=== PATIENT | male | born 1950 | race Caucasian/White ===

== ENCOUNTER 2017-03-16 21:03 | Emergency (ER) | payer MEDICARE, BC ==
--- NOTE | 2017-03-16 21:23 | ED Physician Documentation ---
History of Present Illness - Stated complaint Stated Complaint: ABD PX - Chief complaint Chief Complaint: General - History obtained from History obtained from: Patient - History of Present Illness Timing: How many weeks ago (1) Pain level now: 8 Improved by: no ameliorating factors Worsened by: palpation - Additonal information Additional information: sudden onset RUQ pain one week ago, distinct inciting even when he was coughing heavily. Since that time, the pain has gone through periods of worsening over hours or days, then improving in similar time frames. However, there was definitive worsening this evening, again associated with coughing. Review of Systems Constitutional: denies: Fever, Chills, Sweats Respiratory: reports: Cough. denies: Dyspnea GI: reports: Abdominal Pain, Abdominal Swelling (focal RUQ). denies: Nausea, Vomiting PD PAST MEDICAL HISTORY - Past Medical History Cardiovascular: Atrial fibrillation Respiratory: None Neuro: Headache/migraine Endocrine/Autoimmune: None GI: GERD, Other : None HEENT: None Psych: Post traumatic stress disorder Musculoskeletal: None Derm: Eczema - Past Surgical History Past Surgical History: Yes General: Cholecystectomy, Appendectomy Ortho: Spine surgery Cardiovascular: Other - Present Medications Home Medications: Ambulatory Orders Medication Instructions Recorded Confirmed Olanzapine 0 mg ORAL DAILY 04/24/16 04/24/16 Omeprazole [PriLOSEC] 20 mg ORAL BID 04/24/16 04/24/16 Ondansetron Odt [Zofran] 4 mg TL Q6H PRN #10 tablet 04/24/16 Oxycodone HCl/Acetaminophen 1 - 2 each PO Q6H PRN #20 tablet 04/24/16 [Percocet 5-325 mg Tablet] QUEtiapine [SEROquel] 0 mg ORAL DAILY 04/24/16 04/24/16 Venlafaxine [Effexor] 150 mg ORAL BID 04/24/16 04/24/16 oxyCODONE/ACET 5/325 [Percocet 5 1 - 2 each PO Q6H PRN #20 tablet 03/17/17 mg/325 mg] - Allergies Allergies/Adverse Reactions: Allergies Allergy/AdvReac Type Severity Reaction Status Date / Time No Known Drug Allergies Allergy Verified 03/16/17 21:14 - Social History Does the pt smoke?: No Smoking Status: Never smoker Does the pt drink ETOH?: Yes Does the pt have substance abuse?: No - Immunizations Immunizations: TDAP >10years/unknown PD ED PE NORMAL - Vitals Vital signs reviewed: Yes - General General: Alert and oriented X 3, Well developed/nourished, Other (initially NAD , but during H+P, he transitions into obvious moderate painful distress) - Cardiac Cardiac: RRR, No murmur - Respiratory Respiratory: No respiratory distress, Clear bilaterally - Abdomen Abdomen: Normal bowel sounds, Soft, Non distended, Other (RUQ tenderness associated with fullness/firmness of the RUQ abdominal wall) - Derm Derm: Normal color, Warm and dry, No rash Results - Vitals Vitals: Vital Signs - 24 hr 03/16/17 03/16/17 03/17/17 21:09 23:25 00:45 Temperature 36.4 C L 36.2 C L Heart Rate 99 80 85 Respiratory 17 18 17 Rate Blood Pressure 153/98 H 158/85 H O2 Saturation 97 95 93 03/17/17 01:05 Temperature 36.3 C L Heart Rate 87 Respiratory 18 Rate Blood Pressure 150/48 H O2 Saturation 95 Oxygen O2 Source Room air - Labs Labs: Laboratory Tests 03/16/17 03/16/17 21:49 21:49 WBC 14.8 H RBC 5.02 Hgb 16.0 Hct 45.9 MCV 91.4 MCH 31.8 H MCHC 34.8 RDW 13.7 Plt Count 243 MPV 7.4 Neut # 9.1 H Lymph # 4.5 H Sutter # 1.1 H Eos # 0.1 Baso # 0.1 Absolute Nucleated RBC 0.00 Nucleated RBCs 0.0 Sodium 139 Potassium 4.2 Chloride 105 Carbon Dioxide 26 Anion Gap 8.0 BUN 18 Creatinine 1.3 H Estimated GFR (MDRD) 56 L Glucose 127 H Calcium 9.3 Total Bilirubin 0.5 AST 28 ALT 48 Alkaline Phosphatase 91 Total Protein 7.2 Albumin 4.1 Globulin 3.1 Albumin/Globulin Ratio 1.3 Lipase 21 L - Rads (name of study) chest xray Radiology: Prelim report reviewed, See rad report CT A/P Radiology: Prelim report reviewed, See rad report PD MEDICAL DECISION MAKING - ED course Complexity details: reviewed results, re-evaluated patient, considered differential, d/w patient, d/w family ED course: CT reveals rectus sheath hematoma, grade I (small, does not cross midline nor dissect facial planes). Pain was controlled with titrated doses of IV dilaudid, results reviewed, instructed to avoid aspirin and ibuprofen (NSAIDs), f/u with PMD, return if worse. Departure - Departure Disposition: 01 Home, Self Care Clinical Impression: Rectus sheath hematoma Condition: Good Instructions: ED Hematoma Follow-Up: Henok Negrete MD [Primary Care Provider] - Prescriptions: oxyCODONE/ACET 5/325 [Percocet 5 mg/325 mg] 1 - 2 each PO Q6H PRN #20 tablet PRN Reason: Pain Discharge Date/Time: 03/17/17 01:10
[2017-03-16] MEDS ORDERED: HYDROmorphone 1 MG/ML SYRINGE IVP STA ×2 (21:46→22:28)
[2017-03-16] MEDS ORDERED: HYDROmorphone 1 MG/ML SYRINGE ONE ×2 (21:50→22:27)
[2017-03-16 21:55] LABS: BASOPHILS # (AUTO) 0.1 10^3/uL (0.0-0.1); BASOPHILS % (AUTO) 0.7 %; EOSINOPHILS # (AUTO) 0.1 10^3/uL (0.0-0.7); EOSINOPHILS % (AUTO) 0.6 %; HCT - HEMATOCRIT 45.9 % (42.0-52.0); LYMPHOCYTES # (AUTO) 4.5 10^3/uL (1.5-3.5); LYMPHOCYTES % (AUTO) 30.5 %; MEAN CORPUSCULAR HEMOGLOBIN 31.8 pg (27.0-31.0); MEAN CORPUSCULAR HGB CONC 34.8 g/dL (32.0-36.0); MEAN CORPUSCULAR VOLUME 91.4 fL (80.0-94.0); MEAN PLATELET VOLUME 7.4 fL (7.4-11.4); MONOCYTES # (AUTO) 1.1 10^3/uL (0.0-1.0); MONOCYTES % (AUTO) 7.2 %; NEUTROPHILS # (AUTO) 9.1 10^3/uL (1.5-6.6); RED BLOOD COUNT 5.02 10^6/uL (4.70-6.10); RED CELL DISTRIBUTION WIDTH 13.7 % (12.0-15.0); UNCORRECTED WHITE BLOOD COUNT 14.8 x10^3/uL; WHITE BLOOD COUNT 14.8 x10^3/uL (4.8-10.8)
[2017-03-16 22:09] LABS: ALBUMIN/GLOBULIN RATIO 1.3 (1.0-2.2); BILIRUBIN,TOTAL 0.5 mg/dL (0.2-1.0); CALCIUM 9.3 mg/dL (8.5-10.3); CREATININE 1.3 mg/dL (0.6-1.2); POTASSIUM 4.2 mmol/L (3.5-5.0); TOTAL PROTEIN 7.2 g/dL (6.7-8.2)
[2017-03-16] MEDS ORDERED: IOPAMIDOL-300 100 ML VIAL IVP ONE (22:57)
--- NOTE | 2017-03-16 23:28 | XRAY Preliminary Report ---
Exam: XR Chest 2 View PA/LAT IMPRESSION: Normal 2-view chest radiography. [facility] SITE ID: [id number]
--- NOTE | 2017-03-16 23:30 | CT Preliminary Report ---
Exam: CT Abdomen/Pelvis W/ IMPRESSION: 1. No acute inflammatory or obstructive process seen in the abdomen or pelvis. 2. Colonic diverticula without evidence of diverticulitis. 3. Small umbilical hernia containing fat. 4. Fatty liver. [facility] SITE ID: [id number]
--- NOTE | 2017-03-16 23:30 | XRAY Report ---
EXAM: CHEST RADIOGRAPHY EXAM DATE: 03/16/2017 10:53 PM. CLINICAL HISTORY: Cough, right chest pain. COMPARISON: None. TECHNIQUE: 2 views. FINDINGS: Lungs/Pleura: No focal opacities evident. No pleural effusion. No pneumothorax. Normal volumes. Mediastinum: Heart and mediastinal contours are unremarkable. Other: None. IMPRESSION: Normal 2-view chest radiography. [facility] Referring Provider Line: [phone] SITE ID: [id number]
--- NOTE | 2017-03-16 23:32 | CT Report ---
EXAM: CT ABDOMEN AND PELVIS EXAM DATE: 03/16/2017 10:55 PM. CLINICAL HISTORY: Generalized abdominal pain. COMPARISONS: 04/24/2016. TECHNIQUE: Routine helical CT imaging was performed through the abdomen and pelvis. IV contrast: Michaela onic. Enteric contrast: Yes. Reconstructions: Coronal and sagittal. In accordance with CT protocol optimization, one or more of the following dose reduction techniques w ere utilized for this exam: automated exposure control, adjustment of mA and/or KV based on patient s ize, or use of iterative reconstructive technique. FINDINGS: Lung Bases: Unremarkable. Liver: Fatty infiltration. Gallbladder/Bile Ducts: Status post cholecystectomy. Spleen: Normal. Pancreas: Normal. Adrenal Glands: Normal. Kidneys: Hyperdense left renal cyst is unchanged. No other masses or hydronephrosis. Peritoneal Cavity/Bowel: Moderate stool in the colon. Colonic diverticula without evidence of diverti culitis. No bowel obstruction seen. No free air or free fluid. Normal-sized retroperitoneal lymph nod es. Appendix is not seen. No evidence of appendicitis. Pelvic Organs: Normal. The bladder and visualized pelvic organs are within normal limits. Vasculature: Mild/moderate atherosclerosis. No aortic aneurysm. Bones: Degenerative changes and postoperative changes in the lumbar spine. Other: Small umbilical hernia containing fat. IMPRESSION: 1. No acute inflammatory or obstructive process seen in the abdomen or pelvis. 2. Colonic diverticula without evidence of diverticulitis. 3. Small umbilical hernia containing fat. 4. Fatty liver. [facility] Referring Provider Line: [phone] SITE ID: [id number]
[2017-03-17] MEDS ORDERED: HYDROmorphone 1 MG/ML SYRINGE IVP STA (00:32)
[2017-03-17] MEDS ORDERED: oxyCODONE/ACET 5/325 Prepack 4 PO STA (00:32)
[2017-03-17] MEDS ORDERED: HYDROmorphone 1 MG/ML SYRINGE ONE (00:33)
[2017-03-17] MEDS ORDERED: oxyCODONE/ACET 5/325 Prepack 4 PO ONE (00:44)
[2017-03-17 01:12] VITALS: BP 150/48
== END 2017-03-17 01:10 | disposition home or self-care (01) ==
LOC: ED 21:03
DX: S30.1XXA Contusion of abdominal wall, initial encounter (principal); X58.XXXA Exposure to other specified factors, initial encounter; I48.91 Unspecified atrial fibrillation; K21.9 Gastro-esophageal reflux disease without esophagitis
CPT/HCPCS: 36415; 71020; 74177; 80053; 83690; 85025; 96374; 96376; 99283; 99284; J1170; Q9967

== ENCOUNTER 2017-11-19 08:39 | Inpatient (IN) | payer MEDICARE, BC ==
--- NOTE | 2017-11-19 09:03 | ED Physician Documentation ---
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 no fever cough NVD urinary sx went to bed at 10 PM awoke 2 AM to go to the bathroom and noted his right leg was weak - got to bathoom and back to bed s fall - back to sleep awoke again 3 AM and now he feels weak all over arms and legs R > L and having slightly slurred speech also a posterior ELLIS present to ED at approx 840AM which is> 10 hr after last known normal and > 6 hr after he first awoke and noted sx only recent med change is changing from seroquel to lamotrigine Review of Systems Constitutional: denies: Fever, Chills Throat: denies: Sore throat Cardiac: denies: Chest pain / pressure, Palpitations Respiratory: denies: Dyspnea, Cough GI: denies: Abdominal Pain, Nausea, Vomiting : denies: Dysuria Skin: denies: Rash Musculoskeletal: denies: Neck pain Neurologic: reports: Focal weakness, Difficulty speaking, Headache. denies: Numbness, Head injury Endocrine: denies: Easy bruising / bleeding Immunocompromised: denies: Immunocompromised PD PAST MEDICAL HISTORY - Past Medical History Past Medical History: Yes Cardiovascular: Atrial fibrillation Respiratory: None Neuro: Headache/migraine Endocrine/Autoimmune: None GI: GERD, Other : None HEENT: None Psych: Post traumatic stress disorder Musculoskeletal: None Derm: Eczema - Past Surgical History Past Surgical History: Yes General: Cholecystectomy, Appendectomy Ortho: Spine surgery Cardiovascular: Other - Present Medications Home Medications: Ambulatory Orders Medication Instructions Recorded Confirmed Omeprazole [PriLOSEC] 20 mg ORAL QDAC 04/24/16 11/19/17 QUEtiapine [SEROquel] 100 mg PO DAILY PRN 04/24/16 11/19/17 Aripiprazole [Abilify] 20 mg PO DAILY 11/19/17 11/19/17 Aspirin 81 mg PO DAILY 11/19/17 11/19/17 Venlafaxine HCl [Venlafaxine HCl 300 mg PO DAILY 11/19/17 11/19/17 ER] lamoTRIgine [LaMICtal] 50 mg PO DAILY 11/19/17 11/19/17 - Allergies Allergies/Adverse Reactions: Allergies Allergy/AdvReac Type Severity Reaction Status Date / Time No Known Drug Allergies Allergy Verified 03/16/17 21:14 - Social History Does the pt smoke?: No Smoking Status: Never smoker Does the pt drink ETOH?: Yes Does the pt have substance abuse?: No - Immunizations Immunizations are current?: Yes Immunizations: TDAP >10years/unknown - POLST Patient has POLST: No PD ED PE NORMAL - Vitals Vital signs reviewed: Yes (BP high - not a TPA candidate - will recheck) - General General: Alert and oriented X 3 - HEENT HEENT: Atraumatic, PERRL, EOMI, Other (slight R facial droop) - Neck Neck: Supple, no meningeal sign - Cardiac Cardiac: RRR - Respiratory Respiratory: No respiratory distress, Clear bilaterally - Derm Derm: Normal color - Neuro Neuro: Alert and oriented X 3, No sensory deficit. No: emergency department nurse 2-12 intact, No motor deficit, Normal speech Eye Opening: Spontaneous Motor: Obeys Commands Verbal: Oriented GCS Score: 15 Results - Vitals Vitals: Vital Signs - 24 hr 11/19/17 11/19/17 11/19/17 08:45 09:30 10:00 Temperature 36.4 C L Heart Rate 65 62 60 Respiratory 20 16 16 Rate Blood Pressure 175/104 H 143/91 H 157/85 H O2 Saturation 93 96 92 11/19/17 11:10 Temperature Heart Rate 60 Respiratory 15 Rate Blood Pressure 151/95 H O2 Saturation 95 Oxygen O2 Source Room air - EKG (time done) 1007 Rate: Rate (enter#) (60) Rhythm: NSR Chambers: Normal Intervals: Normal MI Ischemia: Non specific changes - Labs Labs: Laboratory Tests 11/19/17 11/19/17 11/19/17 08:50 08:50 08:50 WBC 10.8 RBC 5.37 Hgb 16.7 Hct 48.8 MCV 90.7 MCH 31.1 H MCHC 34.3 RDW 14.0 Plt Count 244 MPV 7.6 Neut # 6.9 H Lymph # 3.1 Fulton # 0.6 Eos # 0.1 Baso # 0.1 Absolute Nucleated RBC 0.01 Nucleated RBC % 0.1 PT 11.4 INR 1.0 Sodium Potassium Chloride Carbon Dioxide Anion Gap BUN Creatinine Estimated GFR (MDRD) Glucose POC Whole Bld Glucose 166 H Calcium 11/19/17 08:50 WBC RBC Hgb Hct MCV MCH MCHC RDW Plt Count MPV Neut # Lymph # Fulton # Eos # Baso # Absolute Nucleated RBC Nucleated RBC % PT INR Sodium 136 Potassium 4.4 Chloride 100 L Carbon Dioxide 26 Anion Gap 10.0 BUN 19 Creatinine 1.1 Estimated GFR (MDRD) 67 L Glucose 172 H POC Whole Bld Glucose Calcium 9.4 - Rads (name of study) CTH Radiology: See rad report (no acute infarct or bleed) CTA head Radiology: See rad report (no large intracranial vessel occlusion, mild l vertebral and basilar stenosis appears chronic and is not flow limiting) CTA neck Radiology: See rad report (no acute carotid or vetebral stenosis) PD MEDICAL DECISION MAKING - ED course ED course: outside TPA window CTH neg CTAs neg d/w neuro at [facility] and they have no intervention that will help this case rec admit for MRI echo ect pt already takes asa daily spoke to hospitalist Dr Doran at 1110 Departure - Departure Disposition: ED Place in Observation Clinical Impression: Cerebrovascular accident (CVA) Qualifiers: CVA mechanism: unspecified Qualified Code(s): I63.9 - Cerebral infarction, unspecified Condition: Fair Discharge Date/Time: 11/19/17 11:52 NIHSS - Time Time: 08:50 - Level of Consciousness Level of consciousness: (0) Alert, Keenly responsive LOC Questions: (0) Answers both Q's correct LOC Commands: (0) Performs both correctly - Gaze Best Gaze: (0) Normal - Visual Visual: (0) No loss - Facial Palsy Facial Palsy: (2) Partial paralysis - Motor Arms (both separate) Motor Arm (right): (0) No drift (but slightly weaker than left) Motor Arm (left): (0) No drift - Motor Legs (both separate) Motor Leg (right): (0) No drift (but weaker than left, slower to lift, more effort to hold it up) Motor Leg (left): (0) No drift - Limb Ataxia Limb Ataxia: (0) Absent - Sensory Sensory: (0) Normal - Best Language Best Language: (0) No aphasia - Dysarthria Dysarthria: (1) [id number] dysarthria - Extinction and Inattention (formally neg Extinction and inattention: (0) No abnormality - Total Score/Results Total Score/Result: 3
[2017-11-19 09:21] LABS: BASOPHILS # (AUTO) 0.1 10^3/uL (0.0-0.1); BASOPHILS % (AUTO) 0.7 %; EOSINOPHILS # (AUTO) 0.1 10^3/uL (0.0-0.7); EOSINOPHILS % (AUTO) 0.5 %; HGB - HEMOGLOBIN 16.7 g/dL (14.0-18.0); LYMPHOCYTES # (AUTO) 3.1 10^3/uL (1.5-3.5); MEAN CORPUSCULAR HEMOGLOBIN 31.1 pg (27.0-31.0); MEAN CORPUSCULAR HGB CONC 34.3 g/dL (32.0-36.0); MEAN CORPUSCULAR VOLUME 90.7 fL (80.0-94.0); MEAN PLATELET VOLUME 7.6 fL (7.4-11.4); MONOCYTES # (AUTO) 0.6 10^3/uL (0.0-1.0); MONOCYTES % (AUTO) 5.9 %; NEUTROPHILS # (AUTO) 6.9 10^3/uL (1.5-6.6); NEUTROPHILS % (AUTO) 63.9 %; PLT - PLATELET COUNT 244 10^3/uL (130-450); RED BLOOD COUNT 5.37 10^6/uL (4.70-6.10); WHITE BLOOD COUNT 10.8 x10^3/uL (4.8-10.8)
[2017-11-19 09:22] LABS: PT - PROTHROMBIN TIME 11.4 secs (9.9-12.6)
[2017-11-19 09:23] LABS: CALCIUM 9.4 mg/dL (8.5-10.3); CREATININE 1.1 mg/dL (0.6-1.2)
[2017-11-19] MEDS ORDERED: IOPAMIDOL-300 100 ML VIAL ONE (09:26)
--- NOTE | 2017-11-19 09:28 | CT Preliminary Report ---
Exam: CT HEAD W/O STROKE PROTOCOL IMPRESSION: No acute intracranial abnormality, specifically no CT evidence of acute infarct and no in tra-cranial hemorrhage. [facility] The above findings were discussed with Dr. Rosita June by Dr. Baljeet Carrillo at 09:27 hrs on 11/19/17. SITE ID: [id number]
--- NOTE | 2017-11-19 09:44 | CT Report ---
EXAM: CT HEAD WITHOUT CONTRAST EXAM DATE: 11/19/2017 09:09 a.m. CLINICAL HISTORY: Right-sided weakness, last normal 10:00 p.m. COMPARISON: None. TECHNIQUE: Multiaxial CT images were obtained from the foramen magnum to the vertex. Reformats: Coron al. IV contrast: None. In accordance with CT protocol optimization, one or more of the following dose reduction techniques w ere utilized for this exam: automated exposure control, adjustment of mA and/or KV based on patient s ize, or use of iterative reconstructive technique. FINDINGS: Parenchyma: No intraparenchymal hemorrhage. No evidence of mass, midline shift, or CT findings of inf arction. Last-white differentiation is distinct. Extraaxial Spaces: Normal for age. No subdural or epidural collections identified. Ventricles: Normal in size and position. Sinuses and Orbits: There is partial opacification of right mastoid air cells. Otherwise, the imaged paranasal sinuses, orbits, and mastoids show no significant abnormality. Bones: No evidence of fracture or calvarial defect. Other: None. IMPRESSION: No acute intracranial abnormality, specifically no CT evidence of acute infarct and no in tracranial hemorrhage. [facility] The above findings were discussed with Dr. Roista June by Dr. Baljeet Carrillo at 09:27 hrs on 11/19/2017. Referring Provider Line: [phone] SITE ID: [id number]
--- NOTE | 2017-11-19 10:05 | CT Report ---
EXAM: CT ANGIOGRAM NECK EXAM DATE: 11/19/2017 09:49 AM. CLINICAL HISTORY: Right sided weakness. COMPARISON: None. TECHNIQUE: Routine axial helical imaging was performed from the skull base through the aortic arch. R econstructions: Routine multiplanar 3D MIP reconstructions. IV Contrast: 80 mL Isovue 300. Evaluation of arterial stenosis is based on a NASCET method of measurement. In accordance with CT protocol optimization, one or more of the following dose reduction techniques w ere utilized for this exam: automated exposure control, adjustment of mA and/or KV based on patient s ize, or use of iterative reconstructive technique. FINDINGS: Prominent findings of multilevel degenerative cervical spinal spondylosis. Previous cervical spine fu mary jane surgery. Mild atherosclerotic calcifications without associated flow-limiting stenosis at the great vessel ronnie gins. Minimal to mild atherosclerotic disease at the right cervical carotid artery without evidence for acu te abnormality or significant stenosis. Moderate atherosclerotic disease with calcified plaque in the region of the left cervical carotid bif urcation. No evidence however for acute abnormality or hemodynamically significant left cervical desai tid artery stenosis. As far as can be determined, the cervical vertebral arteries are patent without clearly defined flow -limiting stenosis but evaluation is limited in the mid and lower neck. In particular, the left verte bral artery origin is indistinct. IMPRESSION: There is no evidence for acute abnormality or significant stenosis of the cervical caroti d arteries. Vertebral arteries appear grossly patent but evaluation in the mid to lower neck is limited. [facility] Referring Provider Line: [phone] SITE ID: [id number]
--- NOTE | 2017-11-19 10:14 | CT Report ---
EXAM: CT ANGIOGRAM HEAD. CT SCAN OF THE HEAD WITH CONTRAST. EXAM DATE: 11/19/2017 09:48 AM CLINICAL HISTORY: Right sided weakness. COMPARISON: No prior head CT. TECHNIQUE: - CT Scan Head: Using a multidetector scanner, axial images were acquired from the foramen magnum to the skull vertex following contrast administration. - CT Angiogram: Using a multidetector scanner, high-resolution axial images were acquired from the sk ull base through vertex following rapid infusion of intravenous contrast. Reformats: Multiplanar MIP reformats were reconstructed. Nascet criteria used for stenosis measurement. IV Contrast: 80 mL Isovue 300. In accordance with CT protocol optimization, one or more of the following dose reduction techniques w ere utilized for this exam: automated exposure control, adjustment of mA and/or KV based on patient s ize, or use of iterative reconstructive technique. FINDINGS: Brain CT with contrast: Multi focal right mastoid air cell opacification especially inferiorly. No evidence for intracranial enhancing or space occupying mass. Head CT angiogram: Irregular atherosclerotic plaque is associated with minimal to mild focal luminal stenosis of the pro ximal left intradural vertebral artery. Unremarkable congenitally small right intradural vertebral ar yfn. Mild basilar artery stenosis, this does not appear flow-limiting. Prominent atherosclerotic calcifications of the cavernous and paraclinoid segments of both internal c arotid arteries but the distal internal carotid arteries are grossly patent. The degree of paraclinoi d segment ICA luminal stenosis is difficult to estimate accurately but is at least mild if not modera te right greater than left. No proximal flow-limiting stenosis, occlusion or filling defect of the anterior, middle and posterior cerebral arteries. No evidence for alatna of Hoff aneurysm. IMPRESSION: CT Head: No abnormal enhancing mass. Right mastoid opacities. CTA Head: No intracranial large vessel occlusion. Prominent cavernous and paraclinoid segment ICA atherosclerotic calcifications. Mild left vertebral and basilar artery atherosclerotic stenosis, this is more likely chronic than acu te and does not appear flow-limiting. Note that this study does not preclude the possibility of acute or small ischemic infarct. [facility] Referring Provider Line: [phone] SITE ID: [id number]
[2017-11-19] MEDS ORDERED: ACETAMINOPHEN 325 MG TABLET PO STA (11:14)
[2017-11-19] MEDS ORDERED: TEMAZEPAM 15 MG CAPSULE PO PRN (11:16)
--- NOTE | 2017-11-19 11:48 | HISTORY & PHYSICAL EXAMINATION ---
Chief Complaint - Chief Complaint Chief Complaint: Right-sided weakness History of Present Illness - Admitted From Admitted From:: Home/ER - History Obtained From Records Reviewed: Yes History obtained from: Patient, , Dr Jeff Exam Limitations: none - History of Present Illness HPI Comment/Other: Mr. Tim Yo is a very pleasant 67-year-old gentleman who began having right-sided weakness upon awakening this morning at about 2 AM. He first noticed the weakness in his right leg however this quickly evolved to his entire right side and he also noticed slurred speech. He came into the [facility] emergency department where he was evaluated and found to have right- sided weakness consistent with a stroke. A CAT scan was performed was negative as well as CT angiogram of the patient's brain. His symptoms have been slowly resolving and he has full movement but stiffness at this time.He will be admitted to the observation floor, an echocardiogram will be performed as well as an MRI of his brain and will monitor him on telemetry. History - Past Medical History Cardiovascular: reports: Atrial fibrillation Respiratory: reports: None Neuro: reports: Headache/migraine Endocrine/Autoimmune: reports: None GI: reports: GERD, Other : reports: None HEENT: reports: None Psych: reports: Depression, Anxiety, Bipolar disorder, Post traumatic stress disorder Musculoskeletal: reports: None Derm: reports: Eczema MRSA Hx?: No - Past Surgical History General: reports: Cholecystectomy, Appendectomy Ortho: reports: Spine surgery Cardiovascular: reports: Other - Family & Social History Family History: Mother: Alive and Well, CVA/TIA, Hyperlipidemia, Father: , Cancer, COPD/Emphysema, Hypertension Living arrangement: At home Living Situation: With spouse/s.o. - Substance History Use: Uses substance without health or social issues: NONE Abuse: Recurrent use of substance despite neg consequences: NONE Dependence: Experiences withdrawal or developed tolerances: NONE - POLST Patient has POLST: No Meds/Allgy - Home Medications Home Medications: Ambulatory Orders Medication Instructions Recorded Confirmed Omeprazole [PriLOSEC] 20 mg ORAL BID 04/24/16 04/24/16 QUEtiapine [SEROquel] 50 mg ORAL BID 04/24/16 04/24/16 Aripiprazole [Abilify] 20 mg PO DAILY 11/19/17 Aspirin 81 mg PO DAILY 11/19/17 Venlafaxine HCl [Venlafaxine HCl 150 mg PO BID 11/19/17 ER] lamoTRIgine [LaMICtal] 50 mg PO DAILY 11/19/17 - Allergies Allergies/Adverse Reactions: Allergies Allergy/AdvReac Type Severity Reaction Status Date / Time No Known Drug Allergies Allergy Verified 03/16/17 21:14 Review of Systems - Constitutional Constitutional: reports: Weakness (Right-sided weakness with slurring of speech) . denies: Fatigue, Fever, Chills - Eyes Eyes: denies: Pain, Irritation, Amaurosis, Dipolpia - Ears, Nose & Throat Ears, Nose & Throat: denies: Ear pain, Hearing loss, Hearing aids, Tinnitus, Vertigo, Nasal pain, Nasal discharge, Nosebleeds - Cardiovascular Cariovascular: denies: Palpitations, Chest pain, Edema, Syncope - Respiratory Respiratory: denies: Cough, Sputum production, Wheezing, Orthopnea, SOB at rest , SOB with exertion - Gastrointestinal Gastrointestinal: denies: Abdominal pain, Abdominal distention, Constipation, Diarrhea, Change in bowel habits, Rectal bleeding - Genitourinary Genitourinary: denies: Dysuria, Frequency, Urgency, Hematuria - Musculoskeletal Musculoskeletal: denies: Muscle pain, Back pain, Muscle aches, Stiffness - Integumentary Integumentary: denies: Rash, Pruritis, Lesions - Neurological Neurological: reports: Focal weakness. denies: General weakness, Headache, Dizziness - Psychiatric Psychiatric: denies: Depression, Anxiety, Suicidal, Hallucinations - Endocrine Endocrine: denies: Polyuria, Polydypsia, Polyphagia - Hematologic/Lymphatic Hematologic/Lymphatic: denies: Anemia, Bruising, Lymphadenopathy - All Other Systems All Other Systems: reports: Reviewed and negative Exam - Vital Signs Reviewed Vital Signs: Yes Vital Signs: Vital Signs x48h Temp Pulse Resp BP Pulse Ox 11/19/17 10:00 60 16 157/85 H 92 11/19/17 09:30 62 16 143/91 H 96 11/19/17 08:45 36.4 C L 65 20 175/104 H 93 - Physical Exam General Appearance: positive: Alert, Mild distress Eyes Bilateral: positive: Normal inspection, PERRL, EOMI, No lid inflammation, Conjunctivae nml, No scleral icterus ENT: positive: ENT inspection nml, Pharynx nml, No signs of dehydration Neck: positive: Nml inspection, Thyroid nml, No JVD, Trachea midline. negative : Thyromegaly Respiratory: positive: Chest non-tender, No respiratory distress, Breath sounds nml. negative: Wheezes, Rales, Rhonchi Cardiovascular: positive: Regular rate & rhythm, No murmur, No gallop Peripheral Pulses: positive: 1+ Abdomen: positive: Non-tender, No organomegaly, Nml bowel sounds, No distention. negative: Guarding, Rebound Back: positive: Nml inspection. negative: CVA tenderness (R), CVA tenderness (L ) Skin: positive: Color nml, No rash, Warm, Dry. negative: Cyanosis Extremities: positive: Non-tender, Full ROM, Nml appearance, No pedal edema Neurologic/Psychiatric: positive: Oriented x3, CN's nml (2-12), Motor nml, Mood/ affect nml, Facial droop (Very slight), Slurred/abnml speech. negative: Sensation nml Conclusion/Plan - Problem List (1) Weakness of right side of body Conclusion/Plan: Patient's right-sided weakness is complete from his leg to his face and he does have some slight facial droop with slurring. All the symptoms are resolving and the patient's muscle strength appears to be close to normal at this point although he still says he does not feel "quite right". Will obtain an echocardiogram and an MRI of his brain and monitor his condition closely while he is in an observation bed on telemetry. (2) Bipolar 1 disorder Conclusion/Plan: Well-managed, continue Abilify, Seroquel, and Lamictal. (3) Post traumatic stress disorder (PTSD) Conclusion/Plan: Well-managed, continue psychiatric medications. (4) Anxiety and depression Conclusion/Plan: Well-managed, continue Effexor. (5) GERD (gastroesophageal reflux disease) Conclusion/Plan: Well-managed, continue Prilosec. - Lab Results Lab results reviewed: Yes Fish Bones: 11/19/17 08:50 11/19/17 08:50 - Diagnostic Imaging Results Diagnostic Imaging Results: positive: Final report reviewed Diagnostic Imaging Results Comments: EXAM: CT HEAD WITHOUT CONTRAST EXAM DATE: 11/19/2017 09:09 a.m. CLINICAL HISTORY: Right-sided weakness, last normal 10:00 p.m. COMPARISON: None. TECHNIQUE: Multiaxial CT images were obtained from the foramen magnum to the vertex. Reformats: Coronal. IV contrast: None. In accordance with CT protocol optimization, one or more of the following dose reduction techniques were utilized for this exam: automated exposure control, adjustment of mA and/or KV based on patient size, or use of iterative reconstructive technique. FINDINGS: Parenchyma: No intraparenchymal hemorrhage. No evidence of mass, midline shift, or CT findings of infarction. Last-white differentiation is distinct. Extraaxial Spaces: Normal for age. No subdural or epidural collections identified. Ventricles: Normal in size and position. Sinuses and Orbits: There is partial opacification of right mastoid air cells. Otherwise, the imaged paranasal sinuses, orbits, and mastoids show no significant abnormality. Bones: No evidence of fracture or calvarial defect. Other: None. IMPRESSION: No acute intracranial abnormality, specifically no CT evidence of acute infarct and no intracranial hemorrhage. EXAM: CT ANGIOGRAM NECK EXAM DATE: 11/19/2017 09:49 AM. CLINICAL HISTORY: Right sided weakness. COMPARISON: None. TECHNIQUE: Routine axial helical imaging was performed from the skull base through the aortic arch. Reconstructions: Routine multiplanar 3D MIP reconstructions. IV Contrast: 80 mL Isovue 300. Evaluation of arterial stenosis is based on a NASCET method of measurement. In accordance with CT protocol optimization, one or more of the following dose reduction techniques were utilized for this exam: automated exposure control, adjustment of mA and/or KV based on patient size, or use of iterative reconstructive technique. FINDINGS: Prominent findings of multilevel degenerative cervical spinal spondylosis. Previous cervical spine fusion surgery. Mild atherosclerotic calcifications without associated flow-limiting stenosis at the great vessel origins. Minimal to mild atherosclerotic disease at the right cervical carotid artery without evidence for acute abnormality or significant stenosis. Moderate atherosclerotic disease with calcified plaque in the region of the left cervical carotid bifurcation. No evidence however for acute abnormality or hemodynamically significant left cervical carotid artery stenosis. As far as can be determined, the cervical vertebral arteries are patent without clearly defined flow-limiting stenosis but evaluation is limited in the mid and lower neck. In particular, the left vertebral artery origin is indistinct. IMPRESSION: There is no evidence for acute abnormality or significant stenosis of the cervical carotid arteries. Vertebral arteries appear grossly patent but evaluation in the mid to lower neck is limited. EXAM: CT ANGIOGRAM HEAD. CT SCAN OF THE HEAD WITH CONTRAST. EXAM DATE: 11/19/2017 09:48 AM CLINICAL HISTORY: Right sided weakness. COMPARISON: No prior head CT. TECHNIQUE: - CT Scan Head: Using a multidetector scanner, axial images were acquired from the foramen magnum to the skull vertex following contrast administration. - CT Angiogram: Using a multidetector scanner, high-resolution axial images were acquired from the skull base through vertex following rapid infusion of intravenous contrast. Reformats: Multiplanar MIP reformats were reconstructed. Nascet criteria used for stenosis measurement. IV Contrast: 80 mL Isovue 300. In accordance with CT protocol optimization, one or more of the following dose reduction techniques were utilized for this exam: automated exposure control, adjustment of mA and/or KV based on patient size, or use of iterative reconstructive technique. FINDINGS: Brain CT with contrast: Multi focal right mastoid air cell opacification especially inferiorly. No evidence for intracranial enhancing or space occupying mass. Head CT angiogram: Irregular atherosclerotic plaque is associated with minimal to mild focal luminal stenosis of the proximal left intradural vertebral artery. Unremarkable congenitally small right intradural vertebral artery. Mild basilar artery stenosis, this does not appear flow- limiting. Prominent atherosclerotic calcifications of the cavernous and paraclinoid segments of both internal carotid arteries but the distal internal carotid arteries are grossly patent. The degree of paraclinoid segment ICA luminal stenosis is difficult to estimate accurately but is at least mild if not moderate right greater than left. No proximal flow-limiting stenosis, occlusion or filling defect of the anterior , middle and posterior cerebral arteries. No evidence for inupiat of Hoff aneurysm. IMPRESSION: CT Head: No abnormal enhancing mass. Right mastoid opacities. CTA Head: No intracranial large vessel occlusion. Prominent cavernous and paraclinoid segment ICA atherosclerotic calcifications. Mild left vertebral and basilar artery atherosclerotic stenosis, this is more likely chronic than acute and does not appear flow-limiting. Note that this study does not preclude the possibility of acute or small ischemic infarct. Core Measures - Anticipated LOS I expect patient to be DC'd or transferred within 96 hours.: Yes - DVT/VTE - Prophylaxis VTE/DVT Device ordered at admit?: Yes
[2017-11-19] MEDS ORDERED: D5.45NS W/20 MEQ KCL 1,000 ML IV SCH (12:00)
[2017-11-19] MEDS ORDERED: GADOBUTROL 15 MMOL/15 ML VIAL ONE (12:29)
[2017-11-19] MEDS: SODIUM CHLORIDE FLUSH 0.9% 10 ML SYRINGE IVP SCH (12:39)
[2017-11-19] MEDS ORDERED: GADOBUTROL 15 MMOL/15 ML VIAL IVP ONE (13:37)
--- NOTE | 2017-11-19 14:31 | MRI Preliminary Report ---
Exam: MRI BRAIN W/WO Impression: 1. There is a subtle area of diffusion restriction demonstrated within the ventral left dmaaso consiste nt with a small area of acute to subacute cerebral infarction. Recommend correlation with clinical sy mptoms. There is no evidence of overt hemorrhagic transformation within this area of cerebral infarct ion. 2. There is mild degree of chronic small vessel ischemia and mild degree of generalized volume loss. 3. There is no evidence of brain mass. The critical result notification system was initiated by Dr. Hernesto Sherman at 14:23 hrs on 11/19/17. The above findings were discussed with Dr. Jacobsen by Dr. Hernesto Sherman at 14:29 hrs on 11/19/17. SITE ID: [id number]
[2017-11-19] MEDS ORDERED: ACETAMINOPHEN 325 MG TABLET PO PRN (14:39)
[2017-11-19] MEDS: HYDROmorphone 1 MG/ML SYRINGE IVP PRN ×4 (14:55→22:56)
[2017-11-19] MEDS: NITROGLYCERIN SL 0.4 MG TABLET SL ONE ×2 (15:35→15:42)
[2017-11-19] MEDS ORDERED: ASPIRIN CHEW 81 MG TABLET ONE (15:41)
[2017-11-19] MEDS ORDERED: NITROGLYCERIN SL 0.4 MG TABLET SL PRN (15:41)
[2017-11-19] MEDS ORDERED: QUEtiapine 25 MG TABLET PO PRN (15:42)
[2017-11-19] MEDS: ASPIRIN CHEW 81 MG TABLET PO SCH (15:49)
[2017-11-19] MEDS: PROCHLORPERAZINE 10 MG/2 ML VIAL IVP PRN ×2 (15:49→21:52)
[2017-11-19] MEDS ORDERED: lamoTRIgine 25 MG TABLET PO SCH (16:00)
[2017-11-19] MEDS: PANTOPRAZOLE 40 MG TABLET PO SCH ×2 (16:19→16:20)
[2017-11-19] MEDS: VENLAFAXINE ER 75 MG CAPSULE PO SCH (16:19)
[2017-11-19] MEDS: ARIPiprazole 5 MG TABLET PO SCH (16:19)
--- NOTE | 2017-11-19 16:54 | MRI Report ---
EXAM: MRI BRAIN WITHOUT AND WITH CONTRAST EXAM DATE: 11/19/2017 01:54 PM. CLINICAL HISTORY: TIA/CVA, right-sided weakness. Dizziness. Headache. COMPARISON: CT Angiogram of the head and neck 11/19/2017. TECHNIQUE: Multiplanar, multisequence T1-weighted and fluid-sensitive MR sequences of the brain were performed. Sequences optimized for routine evaluation. Other: None. IV Contrast: 12.5 mL Gadavist. FINDINGS: The images are degraded by motion. There is a subtle area of diffusion restriction in straightened within the left damaso ([phone]). There i s subtle T2 hyperintensity at this location. This would be consistent with an area of acute to subacu te cerebral infarction. Recommend correlation with clinical symptoms. There is fluid intensity within multiple right mastoid air cells. The FLAIR images demonstrate a few punctuate T2 hyperintensities within the subcortical, deep, and pe riventricular white matter. This is consistent with a mild degree of chronic small vessel ischemia. T here is enlargement of the lateral ventricles and the third ventricle but not out of proportion to th e enlargement of the cerebral sulci. This is consistent with a mild degree of generalized volume loss . The cerebral vascular flow voids are patent. The images are degraded by motion. The imaged portions of the paranasal sinuses are normally aerated. The bilateral parotid spaces exhibit normal signal intensity. The T2* sequence is normal. There is no evidence of subacute or chronic hemorrhage. The postcontrast T1-weighted images are normal. IMPRESSION: 1. There is a subtle area of diffusion restriction demonstrated within the ventral left damaso consiste nt with a small area of acute to subacute cerebral infarction. Recommend correlation with clinical sy mptoms. There is no evidence of overt hemorrhagic transformation within this area of cerebral infarct ion. 2. There is mild degree of chronic small vessel ischemia and mild degree of generalized volume loss. 3. There is no evidence of brain mass. The critical result notification system was initiated by Dr. Hernesto Sherman at 14:23 hrs on 11/19/17. The above findings were discussed with Dr. Jacobsen by Dr. Hernesto Sherman at 14:29 hrs on 11/19/17. Referring Provider Line: [phone] SITE ID: [id number]
--- NOTE | 2017-11-19 23:56 | XRAY Report ---
EXAM: CHEST RADIOGRAPHY EXAM DATE: 11/19/2017 11:45 PM. CLINICAL HISTORY: Hypoxia. COMPARISON: Chest x-ray 05/29/2015. TECHNIQUE: 1 view. FINDINGS: Lungs/Pleura: No focal opacities evident. No pleural effusion. No pneumothorax. Mediastinum: Within exam limitations, the cardiomediastinal contour is normal. Other: Status post cervical spine surgery. Attachment hooks within the left proximal humerus. IMPRESSION: No acute pulmonary consolidation. [facility] Referring Provider Line: [phone] SITE ID: [id number]
[2017-11-20 00:16] LABS: MAGNESIUM 2.3 mg/dL (1.7-2.8)
[2017-11-20] MEDS: D5.45NS W/20 MEQ KCL 1,000 ML IV SCH ×2 (00:31→21:20)
--- NOTE | 2017-11-20 00:32 | PROVIDER PROGRESS NOTE ---
Fur Nailer Note - Fur Nailer Note Fur Nailer Note: Pt had a Rapid Response called earlier this afternoon: apparently he had CP and required 3 sl NTG for relief. Troponins were checked and have been normal x2. EKG during the event showed NSR and non-specific inferior T wave flattening. This evening, the Pt had N/V x2, SOB with hypoxia (R.A. saturation 77%), and diaphoresis. He also continue to c/o of a headache. Exam: Pt awake, speech is difficult. He is diaphoretic, including his palms. BP 180/95, HR 70 in NSR, RR 22, afebrile. Increased PVCs on telemetry No focal neuro signs except speech problem. Imp: Chest pain, resolved, PVCs Hypoxia N/V and headache post-CVA [place] CVA HTN Morbid obesity (BMI 41) Atherosclerosis by brain and neck imaging Plan: Admit (transfer from OBS) to a Med-Surg bed Telemetry EKG Continue troponin checks CXR Decrease iv fluids from 100 to 40 cc/hr Repeat head CT to eval for edema or hemorrhagic transformation Continue antiplatelet agent Check lipid panel in am Permissive HTN Anti-emetics Clear liquid diet Pain meds (Critical Care time: 30 min)
[2017-11-20] MEDS: SODIUM CHLORIDE FLUSH 0.9% 10 ML SYRINGE IVP SCH ×3 (00:39→15:06)
--- NOTE | 2017-11-20 01:11 | CT Preliminary Report ---
Exam: CT HEAD W/O STROKE PROTOCOL IMPRESSION: 1. No acute interval change since the brain CT from yesterday. The known acute to subacute lacunar in farct in left marija-damaso is not well demonstrated on this exam. 2. ASPECTS score 10. [facility] The call report notification system was initiated by Dr. Romelia Alves at 01:06 hrs on 11/20/17. The above findings were discussed with Dr. Mcqueen by Dr. Romelia Alves at 01:09 hrs on . SITE ID: [id number]
[2017-11-20] MEDS: HYDROmorphone 1 MG/ML SYRINGE IVP PRN ×2 (01:12→10:27)
[2017-11-20] MEDS: SODIUM CHLORIDE FLUSH 0.9% 10 ML SYRINGE IVP PRN (01:13)
--- NOTE | 2017-11-20 01:14 | CT Report ---
EXAM: CT HEAD EXAM DATE: 11/20/2017 01:00 AM. CLINICAL HISTORY: Diaphoresis, right-sided weakness. COMPARISON: Multiple brain imaging studies obtained yesterday. TECHNIQUE: Multiaxial CT images were obtained from the foramen magnum to the vertex. Reformats: Coron al. IV contrast: None. In accordance with CT protocol optimization, one or more of the following dose reduction techniques w ere utilized for this exam: automated exposure control, adjustment of mA and/or KV based on patient s ize, or use of iterative reconstructive technique. FINDINGS: Parenchyma: No intraparenchymal hemorrhage. No evidence of mass, midline shift, or CT findings of acu te infarction. The known lacunar infarct in the left marija-damaso is not well demonstrated on this exam. Last-white differentiation is distinct. Extraaxial Spaces: Normal for age. No subdural or epidural collections identified. Ventricles: The ventricles and cortical sulci are moderately enlarged, consistent with age-related ti ssue loss. Sinuses and orbits: Opacification is again noted in the right mastoid sinus, possibly chronic. The or bits and paranasal sinuses are unremarkable. Bones: No evidence of fracture or calvarial defect. Other: Mild intracranial atherosclerosis is noted. IMPRESSION: 1. No acute interval change since the brain CT from yesterday. The known acute to subacute lacunar in farct in left marija-damaso is not well demonstrated on this exam. 2. ASPECTS score 10. [facility] The call report notification system was initiated by Dr. Romelia Alves at 01:06 hrs on 11/20/17. The above findings were discussed with Dr. Mcqueen by Dr. Romelia Alves at 01:09 hrs on . Referring Provider Line: [phone] SITE ID: [id number]
[2017-11-20 06:49] LABS: BASOPHILS % (AUTO) 0.3 %; EOSINOPHILS % (AUTO) 0.2 %; HGB - HEMOGLOBIN 15.8 g/dL (14.0-18.0); LYMPHOCYTES % (AUTO) 19.2 %; MEAN CORPUSCULAR HEMOGLOBIN 30.4 pg (27.0-31.0); MEAN CORPUSCULAR HGB CONC 33.6 g/dL (32.0-36.0); MEAN CORPUSCULAR VOLUME 90.6 fL (80.0-94.0); MEAN PLATELET VOLUME 7.4 fL (7.4-11.4); MONOCYTES # (AUTO) 0.7 10^3/uL (0.0-1.0); MONOCYTES % (AUTO) 6.7 %; NEUTROPHILS # (AUTO) 7.6 10^3/uL (1.5-6.6); NEUTROPHILS % (AUTO) 73.6 %; PLT - PLATELET COUNT 248 10^3/uL (130-450); RED CELL DISTRIBUTION WIDTH 13.5 % (12.0-15.0); WHITE BLOOD COUNT 10.3 x10^3/uL (4.8-10.8)
[2017-11-20 06:56] LABS: CALCIUM 9.2 mg/dL (8.5-10.3); CREATININE 0.9 mg/dL (0.6-1.2)
[2017-11-20 07:03] LABS: CHOLESTEROL 252 mg/dL; HDL CHOLESTEROL 36 mg/dL; LDL CHOLESTEROL,CALCULATED 189 mg/dL; LDL/HDL RATIO 5.3 (<3.6); VLDL CHOLESTEROL 27 mg/dL
[2017-11-20] MEDS ORDERED: ATORVASTATIN 40 MG TABLET PO SCH ×2 (08:00→21:00)
[2017-11-20] MEDS: VENLAFAXINE ER 75 MG CAPSULE PO SCH (08:13)
[2017-11-20] MEDS: ARIPiprazole 5 MG TABLET PO SCH (08:14)
[2017-11-20] MEDS: ASPIRIN CHEW 81 MG TABLET PO SCH (08:15)
[2017-11-20] MEDS: FAMOTIDINE 20 MG TABLET PO SCH (08:15)
[2017-11-20] MEDS: ACETAMINOPHEN 1,000 MG/100 ML 100 ML IV PRN ×3 (08:16→21:11)
[2017-11-20] MEDS: POLYETHYLENE GLYCOL 3350 17 GM PACKET PO SCH (08:16)
[2017-11-20] MEDS ORDERED: ASPIRIN CHEW 81 MG TABLET PO SCH (09:00)
[2017-11-20] MEDS: PROCHLORPERAZINE 10 MG/2 ML VIAL IVP PRN ×3 (10:27→21:20)
--- NOTE | 2017-11-20 11:19 | PROVIDER PROGRESS NOTE ---
Subjective - Prog Note Date Prog Note Date: 11/20/17 Prog Note Time: 11:00 - Subjective Pt reports feeling: Improved (The patient says that his ability to speak is back to baseline at this point. He still has some right-sided weakness but it is minimal. He has been eating and moving his bowels, he denies any shortness of breath, dyspnea with exertion, or pain. He had an episode of chest pain yesterday afternoon which is resolved and has not returned.) Current Medications - Current Medications Current Medications: Acetaminophen, Abilify, aspirin, atorvastatin, D5W, famotidine, hydromorphone, nitroglycerin, pantoprazole, polyethylene glycol, Compazine, Seroquel, sodium chloride, temazepam, Effexor Objective - Vital Signs/Intake & Output Reviewed Vital Signs: Yes Vital Signs: Vital Signs x48h Temp Pulse Resp BP Pulse Ox 11/20/17 08:00 36.3 C L 67 20 143/82 H 98 11/20/17 05:49 36.4 C L 11/20/17 05:44 73 142/100 H 95 Intake & Output: Intake & Output 11/17/17 11/18/17 11/19/17 11/20/17 23:59 23:59 23:59 23:59 Intake Total 1999 Balance 1999 - Objective General Appearance: positive: No acute distress, Alert Eyes Bilateral: positive: Normal inspection, PERRL, EOMI, No lid inflammation, Conjunctivae nml, No scleral icterus ENT: positive: ENT inspection nml, Pharynx nml, No signs of dehydration Neck: positive: Nml inspection, Thyroid nml, No JVD, Trachea midline. negative : Thyromegaly Respiratory: positive: Chest non-tender, No respiratory distress, Breath sounds nml. negative: Wheezes, Rales, Rhonchi Cardiovascular: positive: Regular rate & rhythm, No murmur, No gallop Abdomen: positive: Non-tender, No organomegaly, Nml bowel sounds, No distention. negative: Guarding, Rebound Back: positive: Nml inspection. negative: CVA tenderness (R), CVA tenderness (L ) Skin: positive: Color nml, No rash, Warm, Dry. negative: Cyanosis Extremities: positive: Non-tender, Full ROM, Nml appearance Neurologic/Psychiatric: positive: Oriented x3, CN's nml (2-12), Motor nml, Sensation nml, Mood/affect nml - Lab Results Fish Bones: 11/20/17 06:10 11/20/17 06:10 Other Labs: Lab Results x24hrs 11/20/17 11/20/17 11/20/17 Range/Units 07:22 06:10 06:10 WBC 10.3 (4.8-10.8) x10^3/uL RBC 5.20 (4.70-6.10) 10^6/uL Hgb 15.8 (14.0-18.0) g/dL Hct 47.1 (42.0-52.0) % MCV 90.6 (80.0-94.0) fL MCH 30.4 (27.0-31.0) pg MCHC 33.6 (32.0-36.0) g/dL RDW 13.5 (12.0-15.0) % Plt Count 248 (130-450) 10^3/uL MPV 7.4 (7.4-11.4) fL Neut # 7.6 H (1.5-6.6) 10^3/uL Lymph # 2.0 (1.5-3.5) 10^3/uL Nuckolls # 0.7 (0.0-1.0) 10^3/uL Eos # 0.0 (0.0-0.7) 10^3/uL Baso # 0.0 (0.0-0.1) 10^3/uL Absolute Nucleated RBC 0.01 x10^3/uL Nucleated RBC % 0.1 /100WBC Sodium (135-145) mmol/L Potassium (3.5-5.0) mmol/L Chloride (101-111) mmol/L Carbon Dioxide (21-32) mmol/L Anion Gap (6-13) BUN (6-20) mg/dL Creatinine (0.6-1.2) mg/dL Estimated GFR (MDRD) (>89) Glucose (70-100) mg/dL POC Whole Bld Glucose 132 H (70 - 100) mg/dL Calcium (8.5-10.3) mg/dL Magnesium (1.7-2.8) mg/dL Troponin I (<0.49) ng/mL Triglycerides 133 ( - 149) mg/dL Cholesterol 252 H ( - 199) mg/dL LDL Cholesterol, Calc 189 H ( - 129) mg/dL VLDL Cholesterol 27 mg/dL HDL Cholesterol 36 L (60 - ) mg/dL LDL/HDL Ratio 5.3 (<3.6) Cholesterol/HDL Ratio 7.0 (<5.0) 11/20/17 11/20/17 11/19/17 Range/Units 06:10 06:10 23:53 WBC (4.8-10.8) x10^3/uL RBC (4.70-6.10) 10^6/uL Hgb (14.0-18.0) g/dL Hct (42.0-52.0) % MCV (80.0-94.0) fL MCH (27.0-31.0) pg MCHC (32.0-36.0) g/dL RDW (12.0-15.0) % Plt Count (130-450) 10^3/uL MPV (7.4-11.4) fL Neut # (1.5-6.6) 10^3/uL Lymph # (1.5-3.5) 10^3/uL Nuckolls # (0.0-1.0) 10^3/uL Eos # (0.0-0.7) 10^3/uL Baso # (0.0-0.1) 10^3/uL Absolute Nucleated RBC x10^3/uL Nucleated RBC % /100WBC Sodium 138 (135-145) mmol/L Potassium 4.2 4.8 (3.5-5.0) mmol/L Chloride 104 (101-111) mmol/L Carbon Dioxide 26 (21-32) mmol/L Anion Gap 8.0 (6-13) BUN 21 H (6-20) mg/dL Creatinine 0.9 (0.6-1.2) mg/dL Estimated GFR (MDRD) 85 L (>89) Glucose 141 H (70-100) mg/dL POC Whole Bld Glucose (70 - 100) mg/dL Calcium 9.2 (8.5-10.3) mg/dL Magnesium 2.3 (1.7-2.8) mg/dL Troponin I < 0.04 (<0.49) ng/mL Triglycerides ( - 149) mg/dL Cholesterol ( - 199) mg/dL LDL Cholesterol, Calc ( - 129) mg/dL VLDL Cholesterol mg/dL HDL Cholesterol (60 - ) mg/dL LDL/HDL Ratio (<3.6) Cholesterol/HDL Ratio (<5.0) - Diagnostic Imaging Diagnostic Imaging Results: positive: Final report reviewed Diagnostic Imaging Comments: EXAM: CT HEAD EXAM DATE: 11/20/2017 01:00 AM. CLINICAL HISTORY: Diaphoresis, right-sided weakness. COMPARISON: Multiple brain imaging studies obtained yesterday. TECHNIQUE: Multiaxial CT images were obtained from the foramen magnum to the vertex. Reformats: Coronal. IV contrast: None. In accordance with CT protocol optimization, one or more of the following dose reduction techniques were utilized for this exam: automated exposure control, adjustment of mA and/or KV based on patient size, or use of iterative reconstructive technique. FINDINGS: Parenchyma: No intraparenchymal hemorrhage. No evidence of mass, midline shift, or CT findings of acute infarction. The known lacunar infarct in the left marija-damaso is not well demonstrated on this exam. Last-white differentiation is distinct. Extraaxial Spaces: Normal for age. No subdural or epidural collections identified. Ventricles: The ventricles and cortical sulci are moderately enlarged, consistent with age-related tissue loss. Sinuses and orbits: Opacification is again noted in the right mastoid sinus, possibly chronic. The orbits and paranasal sinuses are unremarkable. Bones: No evidence of fracture or calvarial defect. Other: Mild intracranial atherosclerosis is noted. IMPRESSION: 1. No acute interval change since the brain CT from yesterday. The known acute to subacute lacunar infarct in left marija-damaso is not well demonstrated on this exam. 2. ASPECTS score 10. EXAM: CHEST RADIOGRAPHY EXAM DATE: 11/19/2017 11:45 PM. CLINICAL HISTORY: Hypoxia. COMPARISON: Chest x-ray 05/29/2015. TECHNIQUE: 1 view. FINDINGS: Lungs/Pleura: No focal opacities evident. No pleural effusion. No pneumothorax. Mediastinum: Within exam limitations, the cardiomediastinal contour is normal. Other: Status post cervical spine surgery. Attachment hooks within the left proximal humerus. IMPRESSION: No acute pulmonary consolidation. EXAM: MRI BRAIN WITHOUT AND WITH CONTRAST EXAM DATE: 11/19/2017 01:54 PM. CLINICAL HISTORY: TIA/CVA, right-sided weakness. Dizziness. Headache. COMPARISON: CT Angiogram of the head and neck 11/19/2017. TECHNIQUE: Multiplanar, multisequence T1-weighted and fluid-sensitive MR sequences of the brain were performed. Sequences optimized for routine evaluation. Other: None. IV Contrast: 12.5 mL Gadavist. FINDINGS: The images are degraded by motion. There is a subtle area of diffusion restriction in straightened within the left damaso (7-505). There is subtle T2 hyperintensity at this location. This would be consistent with an area of acute to subacute cerebral infarction. Recommend correlation with clinical symptoms. There is fluid intensity within multiple right mastoid air cells. The FLAIR images demonstrate a few punctuate T2 hyperintensities within the subcortical, deep, and periventricular white matter. This is consistent with a mild degree of chronic small vessel ischemia. There is enlargement of the lateral ventricles and the third ventricle but not out of proportion to the enlargement of the cerebral sulci. This is consistent with a mild degree of generalized volume loss. The cerebral vascular flow voids are patent. The images are degraded by motion. The imaged portions of the paranasal sinuses are normally aerated. The bilateral parotid spaces exhibit normal signal intensity. The T2* sequence is normal. There is no evidence of subacute or chronic hemorrhage. The postcontrast T1-weighted images are normal. IMPRESSION: 1. There is a subtle area of diffusion restriction demonstrated within the ventral left damaso consistent with a small area of acute to subacute cerebral infarction. Recommend correlation with clinical symptoms. There is no evidence of overt hemorrhagic transformation within this area of cerebral infarction. 2. There is mild degree of chronic small vessel ischemia and mild degree of generalized volume loss. 3. There is no evidence of brain mass. The critical result notification system was initiated by Dr. Hernesto Sherman at 14: 23 hrs on 11/19/17. The above findings were discussed with Dr. Jacobsen by Dr. Hernesto Sherman at 14:29 hrs on 11/19/17. Referring Provider Line: [phone] EXAM: CT HEAD WITHOUT CONTRAST EXAM DATE: 11/19/2017 09:09 a.m. CLINICAL HISTORY: Right-sided weakness, last normal 10:00 p.m. COMPARISON: None. TECHNIQUE: Multiaxial CT images were obtained from the foramen magnum to the vertex. Reformats: Coronal. IV contrast: None. In accordance with CT protocol optimization, one or more of the following dose reduction techniques were utilized for this exam: automated exposure control, adjustment of mA and/or KV based on patient size, or use of iterative reconstructive technique. FINDINGS: Parenchyma: No intraparenchymal hemorrhage. No evidence of mass, midline shift, or CT findings of infarction. Last-white differentiation is distinct. Extraaxial Spaces: Normal for age. No subdural or epidural collections identified. Ventricles: Normal in size and position. Sinuses and Orbits: There is partial opacification of right mastoid air cells. Otherwise, the imaged paranasal sinuses, orbits, and mastoids show no significant abnormality. Bones: No evidence of fracture or calvarial defect. Other: None. IMPRESSION: No acute intracranial abnormality, specifically no CT evidence of acute infarct and no intracranial hemorrhage. EXAM: CT ANGIOGRAM NECK EXAM DATE: 11/19/2017 09:49 AM. CLINICAL HISTORY: Right sided weakness. COMPARISON: None. TECHNIQUE: Routine axial helical imaging was performed from the skull base through the aortic arch. Reconstructions: Routine multiplanar 3D MIP reconstructions. IV Contrast: 80 mL Isovue 300. Evaluation of arterial stenosis is based on a NASCET method of measurement. In accordance with CT protocol optimization, one or more of the following dose reduction techniques were utilized for this exam: automated exposure control, adjustment of mA and/or KV based on patient size, or use of iterative reconstructive technique. FINDINGS: Prominent findings of multilevel degenerative cervical spinal spondylosis. Previous cervical spine fusion surgery. Mild atherosclerotic calcifications without associated flow-limiting stenosis at the great vessel origins. Minimal to mild atherosclerotic disease at the right cervical carotid artery without evidence for acute abnormality or significant stenosis. Moderate atherosclerotic disease with calcified plaque in the region of the left cervical carotid bifurcation. No evidence however for acute abnormality or hemodynamically significant left cervical carotid artery stenosis. As far as can be determined, the cervical vertebral arteries are patent without clearly defined flow-limiting stenosis but evaluation is limited in the mid and lower neck. In particular, the left vertebral artery origin is indistinct. IMPRESSION: There is no evidence for acute abnormality or significant stenosis of the cervical carotid arteries. Vertebral arteries appear grossly patent but evaluation in the mid to lower neck is limited. EXAM: CT ANGIOGRAM HEAD. CT SCAN OF THE HEAD WITH CONTRAST. EXAM DATE: 11/19/2017 09:48 AM CLINICAL HISTORY: Right sided weakness. COMPARISON: No prior head CT. TECHNIQUE: - CT Scan Head: Using a multidetector scanner, axial images were acquired from the foramen magnum to the skull vertex following contrast administration. - CT Angiogram: Using a multidetector scanner, high-resolution axial images were acquired from the skull base through vertex following rapid infusion of intravenous contrast. Reformats: Multiplanar MIP reformats were reconstructed. Nascet criteria used for stenosis measurement. IV Contrast: 80 mL Isovue 300. In accordance with CT protocol optimization, one or more of the following dose reduction techniques were utilized for this exam: automated exposure control, adjustment of mA and/or KV based on patient size, or use of iterative reconstructive technique. FINDINGS: Brain CT with contrast: Multi focal right mastoid air cell opacification especially inferiorly. No evidence for intracranial enhancing or space occupying mass. Head CT angiogram: Irregular atherosclerotic plaque is associated with minimal to mild focal luminal stenosis of the proximal left intradural vertebral artery. Unremarkable congenitally small right intradural vertebral artery. Mild basilar artery stenosis, this does not appear flow- limiting. Prominent atherosclerotic calcifications of the cavernous and paraclinoid segments of both internal carotid arteries but the distal internal carotid arteries are grossly patent. The degree of paraclinoid segment ICA luminal stenosis is difficult to estimate accurately but is at least mild if not moderate right greater than left. No proximal flow-limiting stenosis, occlusion or filling defect of the anterior , middle and posterior cerebral arteries. No evidence for sun'aq of Hoff aneurysm. IMPRESSION: CT Head: No abnormal enhancing mass. Right mastoid opacities. CTA Head: No intracranial large vessel occlusion. Prominent cavernous and paraclinoid segment ICA atherosclerotic calcifications. Mild left vertebral and basilar artery atherosclerotic stenosis, this is more likely chronic than acute and does not appear flow-limiting. Note that this study does not preclude the possibility of acute or small ischemic infarct. Assessment/Plan - Problem List (1) Left pontine cerebrovascular accident Impression: The patient is symptoms are resolving. He says he feels like his speech is back to normal and although he still has some very slight residual weakness to the right side he is almost almost completely back to his baseline. We will continue to monitor the patient and address any other comorbidities as they arise. (2) Bipolar 1 disorder Impression: Well-managed, continue Abilify, Seroquel, and Lamictal. (3) Post traumatic stress disorder (PTSD) Impression: Well-managed, continue psychiatric medications. (4) Anxiety and depression Impression: Well-managed, continue Effexor. (5) GERD (gastroesophageal reflux disease) Impression: Well-managed, no complaints of gastroesophageal reflux. Continue Prilosec.
[2017-11-20] MEDS: HYDROmorphone 1 MG/ML CARPUJECT IVP PRN ×3 (15:07→19:19)
[2017-11-20] MEDS: IBUPROFEN 600 MG TABLET PO PRN (19:20)
[2017-11-20] MEDS: oxyCODONE 5 MG TABLET PO PRN (19:20)
[2017-11-20] MEDS: ONDANSETRON 4 MG/2 ML VIAL IVP PRN (21:03)
[2017-11-21] MEDS: SODIUM CHLORIDE FLUSH 0.9% 10 ML SYRINGE IVP SCH ×4 (03:57→17:17)
[2017-11-21] MEDS: IBUPROFEN 600 MG TABLET PO PRN ×2 (05:28→13:18)
[2017-11-21] MEDS: PANTOPRAZOLE 40 MG TABLET PO SCH (05:28)
[2017-11-21] MEDS: HYDROmorphone 1 MG/ML CARPUJECT IVP PRN ×4 (06:52→18:10)
[2017-11-21] MEDS: oxyCODONE 5 MG TABLET PO PRN ×3 (07:30→15:43)
[2017-11-21] MEDS: ASPIRIN CHEW 81 MG TABLET PO SCH (08:31)
[2017-11-21] MEDS: FAMOTIDINE 20 MG TABLET PO SCH (08:31)
[2017-11-21] MEDS: VENLAFAXINE ER 75 MG CAPSULE PO SCH (08:32)
[2017-11-21] MEDS: ACETAMINOPHEN 1,000 MG/100 ML 100 ML IV PRN ×2 (08:32→13:16)
[2017-11-21] MEDS ORDERED: diazePAM INJ 5 MG/ML SYRINGE IVP SCH (08:39)
[2017-11-21] MEDS: POLYETHYLENE GLYCOL 3350 17 GM PACKET PO SCH (08:49)
[2017-11-21] MEDS: ARIPiprazole 5 MG TABLET PO SCH (09:01)
[2017-11-21] MEDS: SODIUM CHLORIDE FLUSH 0.9% 10 ML SYRINGE IVP PRN ×2 (09:15→18:15)
[2017-11-21] MEDS ORDERED: GADOBUTROL 15 MMOL/15 ML VIAL ONE (09:34)
[2017-11-21] MEDS ORDERED: GADOBUTROL 15 MMOL/15 ML VIAL IVP ONE (10:00)
--- NOTE | 2017-11-21 10:35 | MRI Report ---
EXAM: MRI BRAIN WITHOUT AND WITH CONTRAST EXAM DATE: 11/21/2017 10:17 AM. CLINICAL HISTORY: 67-year-old man with new right-sided weakness. COMPARISON: Noncontrasted CT on 11/20/2017 and brain MRI on 11/19/2017. TECHNIQUE: Multiplanar, multisequence T1-weighted and fluid-sensitive MR sequences of the brain were performed. Sequences optimized for routine evaluation. Other: None. IV Contrast: 13 cc Gadavist. FINDINGS: Parenchyma: Restricted diffusion with corresponding FLAIR hyperintensity is present in the ventral le ft paracentral damaso, consistent within acute infarct. This was present on the 11/19/2017 exam, not si gnificantly changed in size but more conspicuous, consistent with expected evolution of infarct. [place] focus of restricted diffusion with corresponding FLAIR hyperintensity is also present in the rig ht frontal white matter (image 18, series 305), new compared to the prior MRI. No evidence of hemorrh age on susceptibility-weighted sequence. The remainder of the parenchyma demonstrates mild burden of nonspecific FLAIR hyperintensities in the deep cerebral white matter, similar to the prior exam and a common finding in this age group. No abn ormal enhancement. Pituitary: Unremarkable. Ventricles and Extra-axial Spaces: Ventricles are symmetric and normal in size for age. Extra-axial s paces are unremarkable. No abnormal enhancement. Orbits: Unremarkable. Sinuses: Paranasal sinuses and mastoid air cells are clear. Major Vascular Flow Voids: Intact. Dural Venous Sinuses and Major Central Veins: Patent on post-contrast images. The right transverse an d sigmoid sinuses are dominant. IMPRESSION: 1. Acute infarct (1-7 days) in the left paracentral damaso, unchanged in size compared to the 8 MRI but more conspicuous on the current exam, consistent with expected evolution of infarct. No harris dence of hemorrhage. 2. Punctate acute lacunar infarct (1-7 days) in the right frontal white matter, not evident on the pr ior MRI. Findings favor embolic infarct. Location is unlikely to cause right-sided weakness. [facility] Referring Provider Line: [phone] SITE ID: [id number]
--- NOTE | 2017-11-21 13:45 | DISCHARGE SUMMARY ---
Discharge Summary Admit Date: 11/19/17 Discharge Date: 11/21/17 Discharging Provider: Karen Jacobsen DO Primary Care Provider: PIO Physician Code Status: Attempt Resuscitation Condition at Discharge: Fair Discharge Facility Name: [facility] - DIAGNOSES Admission Diagnoses: 1. Right-sided body weakness 2. Bipolar disorder 3. Posttraumatic stress disorder 4. Anxiety and depression 5. Gastroesophageal reflux disease Discharge Diagnoses with Status of Each Condition: 1. Right-sided body weakness -The patient appears to be having another evolving stroke with right-sided weakness and right-sided facial droop/ slurring. And then an MRI was performed today and this showed the acute infarct in the left paracentral damaso, unchanged in size compared to the 2017 exam. This is reportedly more conspicuous on the current exam and this is consistent with expected evolution of the infarct. A punctate acute lacunar infarct in the right frontal white matter was seen which was not evident on the prior MRI. The findings favor an embolic infarction and the location is unlikely to cause right-sided weakness. At this time, because there are lack of neurologists in the hospital it is felt that the best thing for the patient's care would be to get him to a hospital but has neurology. We are trying to transfer him to [facility] at he and his 's request. 2. Bipolar disorder-No known episodes of kecia or depression while hospitalized. Continue Abilify, Seroquel, and Lamictal. 3. Posttraumatic stress disorder - Well-managed, continue psychiatric medications. 4. Anxiety and depression Well-managed, continue Effexor. 5. Gastroesophageal reflux disease- -Well-managed, continue Prilosec. - HPI History of Present Illness: Mr. Tim Yo is a very pleasant 67-year-old gentleman who began having right-sided weakness upon awakening this morning at about 2 AM. He first noticed the weakness in his right leg however this quickly evolved to his entire right side and he also noticed slurred speech. He came into the [facility] emergency department where he was evaluated and found to have right- sided weakness consistent with a stroke. A CAT scan was performed was negative as well as CT angiogram of the patient's brain. His symptoms have been slowly resolving and he has full movement but stiffness at this time.He will be admitted to the observation floor, an echocardiogram will be performed as well as an MRI of his brain and will monitor him on telemetry. - HOSPITAL COURSE Hospital Course: The patient was admitted to an observation bed where it was later discovered that he had in fact suffered a left pontine infarction. The next day the patient had chest pain which required 3 nitroglycerin, oxygen, and blood pressure medications to manage the chest pain. This did resolve however. Patient was then brought into the medical floor from observation and was monitored closely. Today the patient began to experience new right-sided weakness and slurring of his speech and he was sent to MRI for a stat evaluation of his brain. A lacunar infarct was seen which was not seen on the original MRI however this is not felt to be likely to cause right-sided weakness.At this point it is felt that the best thing for the patient will be to get him to a facility where neurology is available and he and his have elected for [facility] in [place]. - ALLERGIES Allergies/Adverse Reactions: Allergies Allergy/AdvReac Type Severity Reaction Status Date / Time No Known Drug Allergies Allergy Verified 03/16/17 21:14 - MEDICATIONS Home Medications: Ambulatory Orders Medication Instructions Recorded Confirmed Omeprazole [PriLOSEC] 20 mg ORAL QDAC 04/24/16 11/19/17 QUEtiapine [SEROquel] 100 mg PO DAILY PRN 04/24/16 11/19/17 Aripiprazole [Abilify] 20 mg PO DAILY 11/19/17 11/19/17 Aspirin 81 mg PO DAILY 11/19/17 11/19/17 Venlafaxine HCl [Venlafaxine HCl 300 mg PO DAILY 11/19/17 11/19/17 ER] lamoTRIgine [LaMICtal] 50 mg PO DAILY 11/19/17 11/19/17 - PHYSICAL EXAM AT DISCHARGE General Appearance: positive: Alert, Mild distress Eyes Bilateral: positive: Normal inspection, PERRL, EOMI, No lid inflammation, Conjunctivae nml, No scleral icterus ENT: positive: ENT inspection nml, Pharynx nml, No signs of dehydration Neck: positive: Nml inspection, Thyroid nml, No JVD, Trachea midline. negative : Thyromegaly Respiratory: positive: Chest non-tender, No respiratory distress, Breath sounds nml. negative: Wheezes, Rales, Rhonchi Cardiovascular: positive: Regular rate & rhythm, No murmur, No gallop, Irregularly irregular, Extrasystoles Peripheral Pulses: positive: 1+ Abdomen: positive: Non-tender, No organomegaly, Nml bowel sounds, No distention. negative: Guarding, Rebound Back: positive: Nml inspection. negative: CVA tenderness (R), CVA tenderness (L ) Skin: positive: Color nml, No rash, Warm, Dry. negative: Cyanosis Extremities: positive: Non-tender, Full ROM, Nml appearance Neurologic/Psychiatric: positive: Oriented x3, CN's nml (2-12), Motor nml, Sensation nml, Mood/affect nml - LABS Result Diagrams: 11/20/17 06:10 11/20/17 06:10 - DIAGNOSTIC IMAGING Diagnostic Imaging Results: Final report reviewed Diagnostic Imaging Results Comments: EXAM: CT HEAD WITHOUT CONTRAST EXAM DATE: 11/19/2017 09:09 a.m. CLINICAL HISTORY: Right-sided weakness, last normal 10:00 p.m. COMPARISON: None. TECHNIQUE: Multiaxial CT images were obtained from the foramen magnum to the vertex. Reformats: Coronal. IV contrast: None. In accordance with CT protocol optimization, one or more of the following dose reduction techniques were utilized for this exam: automated exposure control, adjustment of mA and/or KV based on patient size, or use of iterative reconstructive technique. FINDINGS: Parenchyma: No intraparenchymal hemorrhage. No evidence of mass, midline shift, or CT findings of infarction. Last-white differentiation is distinct. Extraaxial Spaces: Normal for age. No subdural or epidural collections identified. Ventricles: Normal in size and position. Sinuses and Orbits: There is partial opacification of right mastoid air cells. Otherwise, the imaged paranasal sinuses, orbits, and mastoids show no significant abnormality. Bones: No evidence of fracture or calvarial defect. Other: None. IMPRESSION: No acute intracranial abnormality, specifically no CT evidence of acute infarct and no intracranial hemorrhage. EXAM: CT ANGIOGRAM NECK EXAM DATE: 11/19/2017 09:49 AM. CLINICAL HISTORY: Right sided weakness. COMPARISON: None. TECHNIQUE: Routine axial helical imaging was performed from the skull base through the aortic arch. Reconstructions: Routine multiplanar 3D MIP reconstructions. IV Contrast: 80 mL Isovue 300. Evaluation of arterial stenosis is based on a NASCET method of measurement. In accordance with CT protocol optimization, one or more of the following dose reduction techniques were utilized for this exam: automated exposure control, adjustment of mA and/or KV based on patient size, or use of iterative reconstructive technique. FINDINGS: Prominent findings of multilevel degenerative cervical spinal spondylosis. Previous cervical spine fusion surgery. Mild atherosclerotic calcifications without associated flow-limiting stenosis at the great vessel origins. Minimal to mild atherosclerotic disease at the right cervical carotid artery without evidence for acute abnormality or significant stenosis. Moderate atherosclerotic disease with calcified plaque in the region of the left cervical carotid bifurcation. No evidence however for acute abnormality or hemodynamically significant left cervical carotid artery stenosis. As far as can be determined, the cervical vertebral arteries are patent without clearly defined flow-limiting stenosis but evaluation is limited in the mid and lower neck. In particular, the left vertebral artery origin is indistinct. IMPRESSION: There is no evidence for acute abnormality or significant stenosis of the cervical carotid arteries. Vertebral arteries appear grossly patent but evaluation in the mid to lower neck is limited. EXAM: CT ANGIOGRAM HEAD. CT SCAN OF THE HEAD WITH CONTRAST. EXAM DATE: 11/19/2017 09:48 AM CLINICAL HISTORY: Right sided weakness. COMPARISON: No prior head CT. TECHNIQUE: - CT Scan Head: Using a multidetector scanner, axial images were acquired from the foramen magnum to the skull vertex following contrast administration. - CT Angiogram: Using a multidetector scanner, high-resolution axial images were acquired from the skull base through vertex following rapid infusion of intravenous contrast. Reformats: Multiplanar MIP reformats were reconstructed. Nascet criteria used for stenosis measurement. IV Contrast: 80 mL Isovue 300. In accordance with CT protocol optimization, one or more of the following dose reduction techniques were utilized for this exam: automated exposure control, adjustment of mA and/or KV based on patient size, or use of iterative reconstructive technique. FINDINGS: Brain CT with contrast: Multi focal right mastoid air cell opacification especially inferiorly. No evidence for intracranial enhancing or space occupying mass. Head CT angiogram: Irregular atherosclerotic plaque is associated with minimal to mild focal luminal stenosis of the proximal left intradural vertebral artery. Unremarkable congenitally small right intradural vertebral artery. Mild basilar artery stenosis, this does not appear flow- limiting. Prominent atherosclerotic calcifications of the cavernous and paraclinoid segments of both internal carotid arteries but the distal internal carotid arteries are grossly patent. The degree of paraclinoid segment ICA luminal stenosis is difficult to estimate accurately but is at least mild if not moderate right greater than left. No proximal flow-limiting stenosis, occlusion or filling defect of the anterior , middle and posterior cerebral arteries. No evidence for [place] aneurysm. IMPRESSION: CT Head: No abnormal enhancing mass. Right mastoid opacities. CTA Head: No intracranial large vessel occlusion. Prominent cavernous and paraclinoid segment ICA atherosclerotic calcifications. Mild left vertebral and basilar artery atherosclerotic stenosis, this is more likely chronic than acute and does not appear flow-limiting. Note that this study does not preclude the possibility of acute or small ischemic infarct. EXAM: MRI BRAIN WITHOUT AND WITH CONTRAST EXAM DATE: 11/19/2017 01:54 PM. CLINICAL HISTORY: TIA/CVA, right-sided weakness. Dizziness. Headache. COMPARISON: CT Angiogram of the head and neck 11/19/2017. TECHNIQUE: Multiplanar, multisequence T1-weighted and fluid-sensitive MR sequences of the brain were performed. Sequences optimized for routine evaluation. Other: None. IV Contrast: 12.5 mL Gadavist. FINDINGS: The images are degraded by motion. There is a subtle area of diffusion restriction in straightened within the left damaso ([phone]). There is subtle T2 hyperintensity at this location. This would be consistent with an area of acute to subacute cerebral infarction. Recommend correlation with clinical symptoms. There is fluid intensity within multiple right mastoid air cells. The FLAIR images demonstrate a few punctuate T2 hyperintensities within the subcortical, deep, and periventricular white matter. This is consistent with a mild degree of chronic small vessel ischemia. There is enlargement of the lateral ventricles and the third ventricle but not out of proportion to the enlargement of the cerebral sulci. This is consistent with a mild degree of generalized volume loss. The cerebral vascular flow voids are patent. The images are degraded by motion. The imaged portions of the paranasal sinuses are normally aerated. The bilateral parotid spaces exhibit normal signal intensity. The T2* sequence is normal. There is no evidence of subacute or chronic hemorrhage. The postcontrast T1-weighted images are normal. IMPRESSION: 1. There is a subtle area of diffusion restriction demonstrated within the ventral left damaso consistent with a small area of acute to subacute cerebral infarction. Recommend correlation with clinical symptoms. There is no evidence of overt hemorrhagic transformation within this area of cerebral infarction. 2. There is mild degree of chronic small vessel ischemia and mild degree of generalized volume loss. 3. There is no evidence of brain mass. The critical result notification system was initiated by Dr. Hernesto Sherman at 14: 23 hrs on 11/19/17. The above findings were discussed with Dr. Jacobsen by Dr. Hernesto Sherman at 14:29 hrs on 11/19/17. Referring Provider Line: [phone] EXAM: CHEST RADIOGRAPHY EXAM DATE: 11/19/2017 11:45 PM. CLINICAL HISTORY: Hypoxia. COMPARISON: Chest x-ray 05/29/2015. TECHNIQUE: 1 view. FINDINGS: Lungs/Pleura: No focal opacities evident. No pleural effusion. No pneumothorax. Mediastinum: Within exam limitations, the cardiomediastinal contour is normal. Other: Status post cervical spine surgery. Attachment hooks within the left proximal humerus. IMPRESSION: No acute pulmonary consolidation. EXAM: CT HEAD EXAM DATE: 11/20/2017 01:00 AM. CLINICAL HISTORY: Diaphoresis, right-sided weakness. COMPARISON: Multiple brain imaging studies obtained yesterday. TECHNIQUE: Multiaxial CT images were obtained from the foramen magnum to the vertex. Reformats: Coronal. IV contrast: None. In accordance with CT protocol optimization, one or more of the following dose reduction techniques were utilized for this exam: automated exposure control, adjustment of mA and/or KV based on patient size, or use of iterative reconstructive technique. FINDINGS: Parenchyma: No intraparenchymal hemorrhage. No evidence of mass, midline shift, or CT findings of acute infarction. The known lacunar infarct in the left marija-damaso is not well demonstrated on this exam. Last-white differentiation is distinct. Extraaxial Spaces: Normal for age. No subdural or epidural collections identified. Ventricles: The ventricles and cortical sulci are moderately enlarged, consistent with age-related tissue loss. Sinuses and orbits: Opacification is again noted in the right mastoid sinus, possibly chronic. The orbits and paranasal sinuses are unremarkable. Bones: No evidence of fracture or calvarial defect. Other: Mild intracranial atherosclerosis is noted. IMPRESSION: 1. No acute interval change since the brain CT from yesterday. The known acute to subacute lacunar infarct in left marija-damaso is not well demonstrated on this exam. 2. ASPECTS score 10. RADIA The call report notification system was initiated by Dr. Romelia Alves at 01:06 hrs on . The above findings were discussed with Dr. Mcqueen by Dr. Romelia Alves at 01:09 hrs on . EXAM: MRI BRAIN WITHOUT AND WITH CONTRAST EXAM DATE: 11/21/2017 10:17 AM. CLINICAL HISTORY: 67-year-old man with new right-sided weakness. COMPARISON: Noncontrasted CT on 11/20/2017 and brain MRI on 11/19/2017. TECHNIQUE: Multiplanar, multisequence T1-weighted and fluid-sensitive MR sequences of the brain were performed. Sequences optimized for routine evaluation. Other: None. IV Contrast: 13 cc Gadavist. FINDINGS: Parenchyma: Restricted diffusion with corresponding FLAIR hyperintensity is present in the ventral left paracentral damaso, consistent within acute infarct. This was present on the 11/19/2017 exam, not significantly changed in size but more conspicuous, consistent with expected evolution of infarct. Punctate focus of restricted diffusion with corresponding FLAIR hyperintensity is also present in the right frontal white matter (image 18, series 305), new compared to the prior MRI. No evidence of hemorrhage on susceptibility-weighted sequence. The remainder of the parenchyma demonstrates mild burden of nonspecific FLAIR hyperintensities in the deep cerebral white matter, similar to the prior exam and a common finding in this age group. No abnormal enhancement. Pituitary: Unremarkable. Ventricles and Extra-axial Spaces: Ventricles are symmetric and normal in size for age. Extra- axial spaces are unremarkable. No abnormal enhancement. Orbits: Unremarkable. Sinuses: Paranasal sinuses and mastoid air cells are clear. Major Vascular Flow Voids: Intact. Dural Venous Sinuses and Major Central Veins: Patent on post-contrast images. The right transverse and sigmoid sinuses are dominant. IMPRESSION: 1. Acute infarct (1-7 days) in the left paracentral damaso, unchanged in size compared to the 2017 MRI but more conspicuous on the current exam, consistent with expected evolution of infarct. No evidence of hemorrhage. 2. Punctate acute lacunar infarct (1-7 days) in the right frontal white matter, not evident on the prior MRI. Findings favor embolic infarct. Location is unlikely to cause right- sided weakness. - FOLLOW UP Follow Up: [facility] with [facility] after you are transferred home. - TIME SPENT Time Spent in Discharge (Minutes): 45
--- NOTE | 2017-11-21 14:26 | Discharge Plan ---
Discharge Plan Disposition: 02 Transfer Acute Care Hosp Condition: Serious Diet: Regular Activity Restrictions: Activity as Tolerated Shower Restrictions: No Driving Restrictions: No Assistance Devices: Wheelchair Weight Bearing: No Weight No Smoking: If you smoke, Please STOP! Call for help.
[2017-11-21] MEDS ORDERED: CLOPIDOGREL 75 MG TABLET PO SCH (15:00)
[2017-11-21 15:51] VITALS: BP 135/90
[2017-11-21] MEDS: PROCHLORPERAZINE 10 MG/2 ML VIAL IVP PRN (15:55)
[2017-11-21] MEDS: ONDANSETRON 4 MG/2 ML VIAL IVP PRN (18:10)
== END 2017-11-21 19:00 | disposition short-term general hospital (02) | DRG 64 ==
LOC: ED 08:39 → OBS 11:16 → OBSVTOIN 23:31 → MS2 23:32
PROVIDERS: ADMIT Hospitalist; ATTEND Hospitalist
DX: I63.9 Cerebral infarction, unspecified (principal); I63.29 Cerebral infarction due to unspecified occlusion or stenosis of other precerebral arteries; R29.810 Facial weakness; R47.1 Dysarthria and anarthria; R40.2412 Glasgow coma scale score 13-15, at arrival to emergency department; R29.703 NIHSS score 3; I63.50 Cerebral infarction due to unspecified occlusion or stenosis of unspecified cerebral artery; G81.91 Hemiplegia, unspecified affecting right dominant side; Z68.41 Body mass index [BMI] 40.0-44.9, adult; R47.81 Slurred speech; Z86.79 Personal history of other diseases of the circulatory system; Z79.82 Long term (current) use of aspirin; R07.9 Chest pain, unspecified; I49.3 Ventricular premature depolarization; F31.9 Bipolar disorder, unspecified; F43.10 Post-traumatic stress disorder, unspecified; F41.9 Anxiety disorder, unspecified; K21.9 Gastro-esophageal reflux disease without esophagitis; I10 Essential (primary) hypertension; E66.01 Morbid (severe) obesity due to excess calories; I67.2 Cerebral atherosclerosis
CPT/HCPCS: 36415; 70450; 70496; 70498; 70553; 71045; 80048; 80061; 83721; 83735; 84132; 84484; 85025; 85610; 93005; 93306; 96361; 96374; 96375; 96376; 99284; 99285

== ENCOUNTER 2017-11-21 19:00 | Outpatient (CLI) | payer MEDICARE, BC | END 2017-11-21 19:01 | disposition short-term general hospital (02) | LOC: EMS 19:00 | PROVIDERS: ATTEND Surgery | DX: R53.1 Weakness (principal) | CPT/HCPCS: A0170; A0425; A0428 ==

== ENCOUNTER 2017-12-12 19:44 | Emergency (ER) | payer MEDICARE, BC ==
[2017-12-12 20:32] LABS: BASOPHILS % (AUTO) 0.5 %; EOSINOPHILS % (AUTO) 0.3 %; HGB - HEMOGLOBIN 15.3 g/dL (14.0-18.0); LYMPHOCYTES # (AUTO) 1.7 10^3/uL (1.5-3.5); LYMPHOCYTES % (AUTO) 16.6 %; MEAN CORPUSCULAR HGB CONC 34.9 g/dL (32.0-36.0); MEAN CORPUSCULAR VOLUME 88.9 fL (80.0-94.0); MEAN PLATELET VOLUME 7.4 fL (7.4-11.4); MONOCYTES # (AUTO) 0.9 10^3/uL (0.0-1.0); MONOCYTES % (AUTO) 8.8 %; NEUTROPHILS # (AUTO) 7.4 10^3/uL (1.5-6.6); NEUTROPHILS % (AUTO) 73.8 %; PLT - PLATELET COUNT 237 10^3/uL (130-450); RED BLOOD COUNT 4.94 10^6/uL (4.70-6.10); RED CELL DISTRIBUTION WIDTH 13.9 % (12.0-15.0)
[2017-12-12 20:43] LABS: ALBUMIN 4.1 g/dL (3.2-5.5); ALBUMIN/GLOBULIN RATIO 1.5 (1.0-2.2); BILIRUBIN,TOTAL 0.4 mg/dL (0.2-1.0); CALCIUM 8.9 mg/dL (8.5-10.3); CREATININE 0.9 mg/dL (0.6-1.2); TOTAL PROTEIN 6.9 g/dL (6.7-8.2)
--- NOTE | 2017-12-12 21:20 | XRAY Report ---
EXAM: CHEST RADIOGRAPHY EXAM DATE: 12/12/2017 08:52 PM. CLINICAL HISTORY: Productive, moist cough post hospitalization. COMPARISON: None. TECHNIQUE: 2 views. FINDINGS: Lungs/Pleura: Stable elevation of the right hemidiaphragm. No focal opacities evident. No pleural eff usion. No pneumothorax. Normal volumes. Mediastinum: Heart and mediastinal contours are unremarkable. Other: No compression fractures. IMPRESSION: Clear lungs. RADIA Referring Provider Line: [phone] SITE ID: [id number]
[2017-12-12] MEDS ORDERED: IPRATROPIUM/ALBUTEROL 3 ML NEB INH STA (21:28)
--- NOTE | 2017-12-12 22:00 | ED Physician Documentation ---
PD HPI URI - Stated complaint Stated Complaint: COUGH,SOB - Chief complaint Chief Complaint: Resp - History obtained from History obtained from: Patient - History of Present Illness Timing - onset: Yesterday Timing duration: Days (2) Timing details: Gradual onset, Still present Associated symptoms: Fever, Chills, Sore throat, Swollen nodes, Productive cough (sounds very phlegmatic but not able to cough/clear it up, just in the posterior throat.) Contributing factors: Other (he had CVA and was in rehab for few weeks and just diacharged 10 days ago. [place] okay at that time, but now 2 days of cough and wheezing/congestion and feeling dyspnea and weak.). No: Sick contact, Travel, Immunocompromised Similar symptoms before: Has not had sx before Recently seen: Admitted (CVA and in hospital and then was in rehab until 10 days ago.) Review of Systems Constitutional: reports: Fever, Chills, Myalgias Nose: reports: Congestion Throat: reports: Sore throat Respiratory: reports: Dyspnea, Cough. denies: Wheezing GI: denies: Abdominal Pain, Nausea, Vomiting, Diarrhea : denies: Dysuria, Frequency Skin: denies: Abrasion (s), Laceration (s) Neurologic: reports: Headache (abrupt onset while coughing hard today.) Endocrine: reports: Easy bruising / bleeding (being on anticoagulant.) PD PAST MEDICAL HISTORY - Past Medical History Cardiovascular: Atrial fibrillation Respiratory: Shortness of breath Neuro: CVA Endocrine/Autoimmune: None GI: GERD, Other : None HEENT: None Psych: None Musculoskeletal: None Derm: Eczema Other Past Medical History: CVA november 2017 - Past Surgical History Past Surgical History: Yes General: Cholecystectomy, Appendectomy Ortho: Spine surgery Cardiovascular: Other - Present Medications Home Medications: Ambulatory Orders Medication Instructions Recorded Confirmed Omeprazole [PriLOSEC] 20 mg ORAL QDAC 04/24/16 11/19/17 QUEtiapine [SEROquel] 100 mg PO DAILY PRN 04/24/16 11/19/17 Aripiprazole [Abilify] 20 mg PO DAILY 11/19/17 11/19/17 Venlafaxine HCl [Venlafaxine HCl 300 mg PO DAILY 11/19/17 11/19/17 ER] lamoTRIgine [LaMICtal] 50 mg PO DAILY 11/19/17 11/19/17 Atorvastatin [Lipitor] 10 mg PO QPM tablet 11/21/17 Clopidogrel [Plavix] 75 mg PO DAILY tablet 11/21/17 Ibuprofen [Motrin] 600 mg PO Q6HR PRN tablet 11/21/17 Nitroglycerin [Nitrostat] 0.4 mg SL Q5MIN PRN tablet 11/21/17 Apixaban [Eliquis] 10 mg PO BID 12/12/17 12/12/17 Benzonatate [Tessalon] 100 mg PO TID PRN #25 capsule 12/12/17 Dexamethasone [Decadron] 4 mg PO DAILY #5 tablet 12/12/17 Doxycycline Monohydrate 100 mg PO BID #14 tablet 12/12/17 Gabapentin [Neurontin] 100 mg PO TID 12/12/17 12/12/17 HYDROcod/ACETAM 5/325 [Peck 5/325] 1 tab PO Q6H PRN #15 tablet 12/12/17 Lisinopril [Prinivil] 5 mg PO DAILY 12/12/17 12/12/17 - Allergies Allergies/Adverse Reactions: Allergies Allergy/AdvReac Type Severity Reaction Status Date / Time No Known Drug Allergies Allergy Verified 03/16/17 21:14 - Social History Does the pt smoke?: No Smoking Status: Never smoker Does the pt drink ETOH?: Yes Does the pt have substance abuse?: No - Immunizations Immunizations are current?: Yes Immunizations: TDAP >10years/unknown - POLST Patient has POLST: No PD ED PE NORMAL - Vitals Vital signs reviewed: Yes - General General: Alert and oriented X 3, No acute distress, Well developed/nourished - HEENT HEENT: Pharynx benign - Neck Neck: Supple, no meningeal sign, No adenopathy - Cardiac Cardiac: RRR (tachycardic), No murmur - Respiratory Respiratory: No: Clear bilaterally (central/hilar congestion and wheezing, more pronounced with coughing hard. ) - Abdomen Abdomen: Soft, Non tender - Derm Derm: Normal color, Warm and dry - Extremities Extremities: No tenderness to palpate, Normal ROM s pain, No edema, No calf tenderness / cord - Neuro Neuro: Alert and oriented X 3, No motor deficit, Normal speech Results - Vitals Vitals: Oxygen O2 Source Room air - Labs Labs: Laboratory Tests 12/12/17 12/12/17 12/12/17 20:25 20:25 20:25 WBC 10.0 RBC 4.94 Hgb 15.3 Hct 43.9 MCV 88.9 MCH 31.0 MCHC 34.9 RDW 13.9 Plt Count 237 MPV 7.4 Neut # 7.4 H Lymph # 1.7 [place] # 0.9 Eos # 0.0 Baso # 0.0 Absolute Nucleated RBC 0.01 Nucleated RBC % 0.1 Sodium 136 Potassium 4.1 Chloride 104 Carbon Dioxide 24 Anion Gap 8.0 BUN 15 Creatinine 0.9 Estimated GFR (MDRD) 85 L Glucose 109 H Lactic Acid 2.0 Calcium 8.9 Total Bilirubin 0.4 AST 36 ALT 77 H Alkaline Phosphatase 81 B-Natriuretic Peptide Total Protein 6.9 Albumin 4.1 Globulin 2.8 Albumin/Globulin Ratio 1.5 Lipase 13 L Urine Color Urine Clarity Urine pH Ur Specific [place] Urine Protein Urine Glucose (UA) Urine Ketones Urine Occult Blood Urine Nitrite Urine Bilirubin Urine Urobilinogen Ur Leukocyte Esterase Ur Microscopic Review Urine Culture Comments 12/12/17 12/12/17 20:25 22:03 WBC RBC Hgb Hct MCV MCH MCHC RDW Plt Count MPV Neut # Lymph # [place] # Eos # Baso # Absolute Nucleated RBC Nucleated RBC % Sodium Potassium Chloride Carbon Dioxide Anion Gap BUN Creatinine Estimated GFR (MDRD) Glucose Lactic Acid Calcium Total Bilirubin AST ALT Alkaline Phosphatase B-Natriuretic Peptide 12 Total Protein Albumin Globulin Albumin/Globulin Ratio Lipase Urine Color YELLOW Urine Clarity CLEAR Urine pH 6.0 Ur Specific [place] 1.010 Urine Protein NEGATIVE Urine Glucose (UA) NEGATIVE Urine Ketones NEGATIVE Urine Occult Blood NEGATIVE Urine Nitrite NEGATIVE Urine Bilirubin NEGATIVE Urine Urobilinogen 0.2 (NORMAL) Ur Leukocyte Esterase NEGATIVE Ur Microscopic Review NOT INDICATED Urine Culture Comments NOT INDICATED - Rads (name of study) chest Radiology: Prelim report reviewed, EMP read contemporaneously (no infiltrates, no signs of CHF. ) head CT Radiology: Prelim report reviewed (normal), EMP read contemporaneously (head CT appears okay - it was done due to headache related to coughing in lieu of being on anticoagulant. ) PD MEDICAL DECISION MAKING - ED course Complexity details: reviewed results, considered differential, d/w patient Departure - Departure Disposition: 01 Home, Self Care Clinical Impression: Upper respiratory infection Qualifiers: URI type: unspecified URI Qualified Code(s): J06.9 - Acute upper respiratory infection, unspecified Condition: Stable Record reviewed to determine appropriate education?: Yes Instructions: ED Upper Resp Infec Abx Tx Follow-Up: Henok Negrete MD [Provider Admit Priv/Credential] - [facility] [Provider Group] Prescriptions: Benzonatate [Tessalon] 100 mg PO TID PRN #25 capsule PRN Reason: Cough Dexamethasone [Decadron] 4 mg PO DAILY #5 tablet Doxycycline Monohydrate 100 mg PO BID #14 tablet HYDROcod/ACETAM 5/325 [Peck 5/325] 1 tab PO Q6H PRN #15 tablet PRN Reason: Pain Comments: Maintain good hydration. Continue usual medications. This sounds like a bronchial infection and may be viral or bacterial. Given your recent rehab and other illnesses, we will cautiously treat it as bacterial. Doxycycline twice daily for a week. Also Decadron steroid anti-inflammatory for the bronchial inflammation. Add Tessalon if needed for cough. Hydrocodone can be used for cough and pain. Recheck if not improving over the next few days and sooner if worsening. Discharge Date/Time: 12/13/17 00:08
[2017-12-12 22:14] LABS: BILIRUBIN,URINE NEGATIVE (NEGATIVE); GLUCOSE, URINE (UA) NEGATIVE (NEGATIVE); KETONES,URINE (UA) NEGATIVE (NEGATIVE); LEUKOCYTE ESTERASE, URINE NEGATIVE (NEGATIVE); NITRITE,URINE NEGATIVE (NEGATIVE); OCCULT BLOOD,URINE NEGATIVE (NEGATIVE); PROTEIN,URINE NEGATIVE (NEGATIVE); UROBILINOGEN,URINE 0.2 (NORMAL) E.U./dL (NORMAL)
[2017-12-12] MEDS ORDERED: BENZONATATE 100 MG CAPSULE PO STA (22:22)
[2017-12-12] MEDS ORDERED: DOXYCYCLINE 100 MG TABLET PO STA (22:22)
[2017-12-12] MEDS ORDERED: HYDROmorphone 1 MG/ML CARPUJECT IVP STA (22:22)
[2017-12-12] MEDS ORDERED: DEXAMETHASONE 10 MG/ML VIAL IVP STA (22:22)
[2017-12-12] MEDS ORDERED: ALBUTEROL NEB 2.5 MG/3 ML INH STA (22:24)
[2017-12-12 22:38] LABS: CLARITY,URINE CLEAR (CLEAR)
[2017-12-12] MEDS ORDERED: ONDANSETRON 4 MG/2 ML VIAL IVP STA (22:44)
[2017-12-12] MEDS ORDERED: HYDROcod/ACETAM 5/325 MG TABLET PO STA (23:30)
[2017-12-12 23:35] VITALS: BP 162/92
--- NOTE | 2017-12-12 23:44 | CT Preliminary Report ---
Exam: CT HEAD W/O IMPRESSION: Generalized age-related cortical atrophic changes without evidence of acute intracranial abnormality. [facility] SITE ID: [id number]
[2017-12-12] MEDS ORDERED: HYDROcod/ACET 5/325 Prepack 4 PO STA (23:47)
--- NOTE | 2017-12-12 23:49 | CT Report ---
EXAM: CT HEAD EXAM DATE: 12/12/2017 11:15 PM. CLINICAL HISTORY: Headache, on anticoagulation. COMPARISON: Brain CT from 11/20/2017 and brain MRI from 11/21/2017. TECHNIQUE: Multiaxial CT images were obtained from the foramen magnum to the vertex. Reformats: Coron al. IV contrast: None. In accordance with CT protocol optimization, one or more of the following dose reduction techniques w ere utilized for this exam: automated exposure control, adjustment of mA and/or KV based on patient s ize, or use of iterative reconstructive technique. FINDINGS: Parenchyma: No intraparenchymal hemorrhage. No evidence of mass, midline shift, or CT findings of acu te infarction. Last-white differentiation is distinct. Extraaxial Spaces: Normal for age. No subdural or epidural collections identified. Ventricles: The ventricles and cortical sulci are moderately enlarged, consistent with age-related ti ssue loss. Sinuses and orbits: Imaged paranasal sinuses, orbits, and mastoids show no significant abnormality. Bones: No evidence of fracture or calvarial defect. Other: Mild intracranial atherosclerosis is noted. IMPRESSION: Generalized age-related cortical atrophic changes without evidence of acute intracranial abnormality. [facility] Referring Provider Line: [phone] SITE ID: [id number]
== END 2017-12-13 00:08 | disposition home or self-care (01) ==
LOC: ED 19:44
DX: J06.9 Acute upper respiratory infection, unspecified (principal); R51 Headache; I48.91 Unspecified atrial fibrillation; Z79.01 Long term (current) use of anticoagulants; Z86.73 Personal history of transient ischemic attack (TIA), and cerebral infarction without residual deficits
CPT/HCPCS: 36415; 70450; 71046; 80053; 81003; 83605; 83690; 83880; 85025; 94640; 96374; 96375; 99283; 99284; A9270; J1170; 81001; 87086

== ENCOUNTER 2018-01-18 07:04 | Outpatient (CLI) | payer MEDICARE, BC ==
[2018-01-18 12:12] LABS: ALBUMIN/GLOBULIN RATIO 1.5 (1.0-2.2); ALKALINE PHOSPHATASE 73 IU/L (42-121); ALT ALANINE AMINOTRANSFERASE 43 IU/L (10-60); AST ASPARTATE AMINOTRANSFERASE 24 IU/L (10-42); BILIRUBIN,TOTAL 0.7 mg/dL (0.2-1.0); BUN - BLOOD UREA NITROGEN 22 mg/dL (6-20); CALCIUM 9.2 mg/dL (8.5-10.3); CARBON DIOXIDE - CO2 29 mmol/L (21-32); CHLORIDE 102 mmol/L (101-111); CHOLESTEROL 217 mg/dL; CREATININE 0.9 mg/dL (0.6-1.2); GFR - MDRD 85 (>89); GLUCOSE 124 mg/dL (70-100); HDL CHOLESTEROL 31 mg/dL; LDL CHOLESTEROL,CALCULATED 155 mg/dL; SODIUM 138 mmol/L (135-145); TOTAL PROTEIN 6.6 g/dL (6.7-8.2); VLDL CHOLESTEROL 31 mg/dL
== END 2018-01-18 07:05 | disposition home or self-care (01) ==
LOC: LAB.F 07:04
PROVIDERS: ATTEND Internal Medicine
DX: I10 Essential (primary) hypertension (principal); E78.5 Hyperlipidemia, unspecified
CPT/HCPCS: 36415; 80053; 80061; 83721; 84443

== ENCOUNTER 2018-02-21 10:43 | Outpatient (CLI) | END 2018-02-21 10:44 | disposition home or self-care (01) | CPT/HCPCS: 99203; G0463 ==

== ENCOUNTER 2018-04-04 19:23 | Outpatient (CLI) | payer MEDICARE, BC | END 2018-04-04 19:24 | disposition home or self-care (01) | LOC: SC 19:23 | PROVIDERS: ATTEND Internal Medicine Pulmonary Disease | DX: G47.33 Obstructive sleep apnea (adult) (pediatric) (principal); G47.61 Periodic limb movement disorder | CPT/HCPCS: 95810 ==

== ENCOUNTER 2018-04-11 15:26 | Outpatient (CLI) | payer MEDICARE, BC | END 2018-04-11 15:27 | disposition home or self-care (01) | LOC: SC 15:26 | PROVIDERS: ATTEND Internal Medicine Pulmonary Disease | DX: G47.33 Obstructive sleep apnea (adult) (pediatric) (principal) | CPT/HCPCS: 99213; G0463; 99212 ==

== ENCOUNTER 2018-06-19 09:03 | Outpatient (CLI) | payer MEDICARE, BC | END 2018-06-19 09:04 | disposition home or self-care (01) | LOC: SC 09:03 | PROVIDERS: ATTEND Internal Medicine Pulmonary Disease | DX: G47.33 Obstructive sleep apnea (adult) (pediatric) (principal) | CPT/HCPCS: 99213; G0463; 99212 ==

== ENCOUNTER 2018-07-11 07:11 | Outpatient (CLI) | payer MEDICARE, BC ==
[2018-07-11 11:38] LABS: BASOPHILS % (AUTO) 0.4 %; EOSINOPHILS # (AUTO) 0.1 10^3/uL (0.0-0.7); EOSINOPHILS % (AUTO) 0.8 %; HGB - HEMOGLOBIN 16.4 g/dL (14.0-18.0); LYMPHOCYTES % (AUTO) 29.2 %; MEAN CORPUSCULAR HEMOGLOBIN 31.7 pg (27.0-31.0); MEAN CORPUSCULAR HGB CONC 34.9 g/dL (32.0-36.0); MEAN CORPUSCULAR VOLUME 90.7 fL (80.0-94.0); MEAN PLATELET VOLUME 7.9 fL (7.4-11.4); MONOCYTES # (AUTO) 0.6 10^3/uL (0.0-1.0); MONOCYTES % (AUTO) 6.3 %; NEUTROPHILS # (AUTO) 6.4 10^3/uL (1.5-6.6); NEUTROPHILS % (AUTO) 63.3 %; PLT - PLATELET COUNT 256 10^3/uL (130-450); RED BLOOD COUNT 5.17 10^6/uL (4.70-6.10); RED CELL DISTRIBUTION WIDTH 13.8 % (12.0-15.0); WHITE BLOOD COUNT 10.2 x10^3/uL (4.8-10.8)
[2018-07-11 12:04] LABS: ALBUMIN 4.2 g/dL (3.2-5.5); ALBUMIN/GLOBULIN RATIO 1.6 (1.0-2.2); ALKALINE PHOSPHATASE 89 IU/L (42-121); ALT ALANINE AMINOTRANSFERASE 48 IU/L (10-60); AST ASPARTATE AMINOTRANSFERASE 25 IU/L (10-42); BILIRUBIN,TOTAL 0.9 mg/dL (0.2-1.0); BUN - BLOOD UREA NITROGEN 16 mg/dL (6-20); CALCIUM 9.2 mg/dL (8.5-10.3); CARBON DIOXIDE - CO2 28 mmol/L (21-32); CHLORIDE 99 mmol/L (101-111); CHOL/HDL RATIO 5.2 (<5.0); CHOLESTEROL 193 mg/dL; GFR - MDRD 75 (>89); GLUCOSE 132 mg/dL (70-100); HDL CHOLESTEROL 37 mg/dL; LDL CHOLESTEROL,CALCULATED 117 mg/dL; LDL/HDL RATIO 3.2 (<3.6); SODIUM 135 mmol/L (135-145); TOTAL PROTEIN 6.9 g/dL (6.7-8.2); VLDL CHOLESTEROL 39 mg/dL
== END 2018-07-11 07:12 | disposition home or self-care (01) ==
LOC: LAB.F 07:11
PROVIDERS: ATTEND Internal Medicine Cardiovascular Disease
DX: E78.2 Mixed hyperlipidemia (principal); I10 Essential (primary) hypertension; I48.0 Paroxysmal atrial fibrillation
CPT/HCPCS: 36415; 80053; 80061; 83721; 85025

== ENCOUNTER 2018-11-03 08:15 | Outpatient (CLI) | payer MEDICARE, BC ==
[2018-11-03 13:53] LABS: CALCIUM 9.2 mg/dL (8.5-10.3); CARBON DIOXIDE - CO2 28 mmol/L (21-32); CHLORIDE 99 mmol/L (101-111); GLUCOSE 120 mg/dL (70-100); SODIUM 135 mmol/L (135-145)
[2018-11-03 14:16] LABS: ALBUMIN 4.2 g/dL (3.2-5.5); ALBUMIN/GLOBULIN RATIO 1.6 (1.0-2.2); ALKALINE PHOSPHATASE 74 IU/L (42-121); ALT ALANINE AMINOTRANSFERASE 32 IU/L (10-60); AST ASPARTATE AMINOTRANSFERASE 20 IU/L (10-42); BILIRUBIN,TOTAL 0.8 mg/dL (0.2-1.0); BUN - BLOOD UREA NITROGEN 26 mg/dL (6-20); CHOL/HDL RATIO 5.6 (<5.0); CHOLESTEROL 200 mg/dL; GFR - MDRD 75 (>89); HDL CHOLESTEROL 36 mg/dL; LDL CHOLESTEROL,CALCULATED 132 mg/dL; LDL/HDL RATIO 3.7 (<3.6); TOTAL PROTEIN 6.8 g/dL (6.7-8.2); VLDL CHOLESTEROL 32 mg/dL
== END 2018-11-03 08:16 | disposition home or self-care (01) ==
LOC: LAB.F 08:15
PROVIDERS: ATTEND Internal Medicine Cardiovascular Disease
DX: E78.2 Mixed hyperlipidemia (principal); I10 Essential (primary) hypertension
CPT/HCPCS: 36415; 80053; 80061; 83721

== ENCOUNTER 2019-07-03 13:12 | Outpatient (CLI) | payer MEDICARE, BC ==
--- NOTE | 2019-07-03 13:39 | SLEEP CARE CONSULTATION ---
Information from patient questionnaire entered by Sanam Martin. I have reviewed and concur with the information entered by Sanam Martin. This document represents the service I personally performed and the decisions made by me, Liborio Ivy MD, [facility]. History of Present Illness Previous diagnosis: Severe, Obstructive Sleep Apnea-Hypopnea Syndrome AHI: 63.2 Reason for CPAP/BiPAP follow up: annual Equipment type: CPAP Equipment obtained from: [facility] Prior sleep studies: Yes HPI additional information: HPI: Mr. Mcdermott was diagnosed to have very severe obstructive sleep apnea- hypopnea syndrome and returns today for annual follow up of CPAP therapy. The patient purchased the device from [employer] and was fitted with a Respironics DreamWear nasal cushion mask. He uses the device nightly and all through the night. The compliance report shows that he uses the device 178 nights out of the past 180 nights, averaging 5.3 hours a night. The > 4 hour compliance rate for the past 30 days is 73%. He complains of no particular problem with the device such as soreness on the face, dry nose, epistaxis, nasal congestion or headache. He thinks that the pressure of 7 - 10 cmH2O is comfortable. On the CPAP therapy he notices improvement in his sleep quality, and that he wakes up feeling fresher in the morning and more awake/alert during the day. His notices no snore at all. The average residual AHI is 5.8; and average time in large leak is 4 minutes a night. The 90th percentile pressure is 8.7 cmH2O. CPAP Compliance Data - Data Reviewed with Patient Average duration of nightly device use: 5H 18M Compliance rate %: 72.8 Current pressure setting (cmH2O): 7-11 Humidity settin Heated hose settin Subjective Current pressure setting perceived as: comfortable Initial [place] Sleepiness Scale score: 7 Current [place] Sleepiness Scale score: 5 Allergies and Home Medications Drug allergies reviewed: Yes Home medication list reviewed: Yes Review of Systems Review of systems same as previous: Yes Physical Exam Weight: 255 lb Weight change since last visit: -27 Impression and Plan IMPRESSION: 1. Obstructive Sleep Apnea-Hypopnea Syndrome, very severe, with the patient continuing to have good treatment compliance. The current pressure setting appears comfortable but slightly less effective. His mask fits well. Because the residual AHI is now slightly high, I will raise the pressure range to 8 11 cmH2O. PLAN: 1. Increase autoCPAP setting to 8 11 cmH2O. 2. Try ResMed N30i mask. Prescription written. 3. Return for follow up in a year or earlier if there is any problem. I spent 100% of this 20 minute visit face to face with the patient with greater than 50% of this was spent time counseling the patient and coordination of care.
== END 2019-07-03 13:13 | disposition home or self-care (01) ==
LOC: SC 13:12
PROVIDERS: ATTEND Internal Medicine Pulmonary Disease
DX: G47.33 Obstructive sleep apnea (adult) (pediatric) (principal)
CPT/HCPCS: 99213; G0463; 99212

== ENCOUNTER 2020-07-01 13:20 | Outpatient (CLI) | payer MEDICARE, BC ==
--- NOTE | 2020-07-01 13:40 | SLEEP CARE CONSULTATION ---
Information from patient questionnaire entered by Sanam Martin. I have reviewed and concur with the information entered by Sanam Martin. This document represents the service I personally performed and the decisions made by me, Liborio Ivy MD, [facility]. History of Present Illness Service Date and Time: 07/01/2020 1320 Previous diagnosis: Severe, Obstructive Sleep Apnea-Hypopnea Syndrome AHI: 63.2 Reason for follow up: annual (last seen 06/2019) Equipment type: CPAP Equipment obtained from: [employer] Prior sleep studies: Yes Year and Where: 2017 [facility] Type of Sleep Study: Polysomnography HPI additional information: HPI: Mr. Mcdermott was diagnosed to have very severe obstructive sleep apnea- hypopnea syndrome and was called today for annual follow up of CPAP therapy. The patient purchased the device from [employer] and was fitted with a Respironics DreamWear nasal cushion mask. He continues to use the device nightly and all through the night. The compliance report shows that he uses the device 361 nights out of the past 365 nights, averaging 6.6 (was 5.3) hours a night. The > 4 hour compliance rate for the past 365 days is 88%. He complains of no particular problem with the device such as soreness on the face, dry nose, epistaxis, nasal congestion or headache. He thinks that the pressure of 8 - 11 cmH2O is comfortable. On the CPAP therapy he notices improvement in his sleep quality, and that he wakes up feeling fresher in the morning and more awake/alert during the day. His notices no snore at all. The average residual AHI is 5.6 (was 4.9 last year); and average time in large leak is 24 minutes a night. The 90th percentile pressure is 9.6 cmH2O. Sleep Study - Results Prior sleep studies: Yes CPAP Compliance Data - Data Reviewed with Patient Average duration of nightly device use: 7 hours 25 minutes Compliance rate %: 96.7 Current pressure setting (cmH2O): 8-11 Humidity settin Heated hose settin Average residual AHI: 6.8 Average large leak: 25 minutes 52 seconds Subjective Initial [place] Sleepiness Scale score: 7 Allergies and Home Medications Drug allergies reviewed: Yes Home medication list reviewed: Yes Review of Systems Review of systems same as previous: Yes Physical Exam Height: 5 ft 10 in Weight: 260 lb Body Mass Index: 37.3 BMI Classification: Obese Impression and Plan IMPRESSION: 1. Obstructive Sleep Apnea-Hypopnea Syndrome, very severe, with the patient continuing to have good treatment compliance. The current pressure setting appears comfortable but still is slightly ineffective. His mask fits well. Because the residual AHI is now slightly high, I will raise the pressure range further to 9 12 cmH2O. PLAN: 1. Increase autoCPAP setting to 9 - 12 cmH2O. 2. Try to lose weight. 3. Return for follow up in a year or earlier if there is any problem. Visit Type: Telehealth Video Video Type: Doximity Patient Location: Home Location of Provider: Home Patient agrees and consents to this telehealth visit type: Yes Patient agrees to have their insurance billed: Yes Time Spent with Patient (minutes): 15 Provider Statement: I spent 100% of the Telehealth Video Call with the patient with greater than 50% spent counseling the patient and coordination of care.
== END 2020-07-01 13:21 | disposition home or self-care (01) ==
LOC: SC 13:20
PROVIDERS: ATTEND Internal Medicine Pulmonary Disease
DX: G47.33 Obstructive sleep apnea (adult) (pediatric) (principal); E66.9 Obesity, unspecified; Z68.37 Body mass index [BMI] 37.0-37.9, adult

== ENCOUNTER 2020-09-10 07:17 | Outpatient (CLI) | payer MEDICARE, BC ==
[2020-09-10 14:34] LABS: HGB - HEMOGLOBIN 16.1 g/dL (14.0-18.0); MEAN CORPUSCULAR HEMOGLOBIN 31.6 pg (27.0-31.0); MEAN CORPUSCULAR HGB CONC 32.7 g/dL (32.0-36.0); MEAN CORPUSCULAR VOLUME 96.5 fL (80.0-94.0); MEAN PLATELET VOLUME 9.9 fL (7.4-11.4); RED BLOOD COUNT 5.1 10^6/uL (4.70-6.10); RED CELL DISTRIBUTION WIDTH 13.4 % (12.0-15.0); WHITE BLOOD COUNT 10.1 x10^3/uL (4.8-10.8)
[2020-09-10 16:24] LABS: ALBUMIN 4.1 g/dL (3.2-5.5); ALBUMIN/GLOBULIN RATIO 1.6 (1.0-2.2); ALKALINE PHOSPHATASE 68 IU/L (42-121); ALT ALANINE AMINOTRANSFERASE 35 IU/L (10-60); AST ASPARTATE AMINOTRANSFERASE 19 IU/L (10-42); BILIRUBIN,TOTAL 0.6 mg/dL (0.2-1.0); BUN - BLOOD UREA NITROGEN 18 mg/dL (6-20); CALCIUM 9.3 mg/dL (8.5-10.3); CARBON DIOXIDE - CO2 28 mmol/L (21-32); CHLORIDE 101 mmol/L (101-111); CHOL/HDL RATIO 5.4 (<5.0); CHOLESTEROL 193 mg/dL; CREATININE 0.9 mg/dL (0.6-1.2); GLUCOSE 121 mg/dL (70-100); HDL CHOLESTEROL 36 mg/dL; LDL CHOLESTEROL,CALCULATED 132 mg/dL; LDL/HDL RATIO 3.7 (<3.6); SODIUM 138 mmol/L (135-145); TOTAL PROTEIN 6.7 g/dL (6.7-8.2); VLDL CHOLESTEROL 25 mg/dL
== END 2020-09-10 07:18 | disposition home or self-care (01) ==
LOC: LAB.S 07:17
PROVIDERS: ATTEND Internal Medicine Cardiovascular Disease
DX: E78.2 Mixed hyperlipidemia (principal); I10 Essential (primary) hypertension; Z98.890 Other specified postprocedural states; Z86.79 Personal history of other diseases of the circulatory system
CPT/HCPCS: 36415; 80053; 80061; 83721; 85027

== ENCOUNTER 2020-12-31 07:17 | Outpatient (CLI) | payer MEDICARE, BC ==
[2020-12-31 14:59] LABS: BASOPHILS % (AUTO) 0.4 %; EOSINOPHILS # (AUTO) 0.1 10^3/uL (0.0-0.7); EOSINOPHILS % (AUTO) 0.7 %; HCT - HEMATOCRIT 50.1 % (42.0-52.0); HGB - HEMOGLOBIN 16.7 g/dL (14.0-18.0); LYMPHOCYTES # (AUTO) 3.2 10^3/uL (1.5-3.5); LYMPHOCYTES % (AUTO) 28.7 %; MEAN CORPUSCULAR HEMOGLOBIN 32.2 pg (27.0-31.0); MEAN CORPUSCULAR HGB CONC 33.3 g/dL (32.0-36.0); MEAN CORPUSCULAR VOLUME 96.7 fL (80.0-94.0); MEAN PLATELET VOLUME 10.6 fL (7.4-11.4); MONOCYTES # (AUTO) 0.7 10^3/uL (0.0-1.0); MONOCYTES % (AUTO) 6.5 %; NEUTROPHILS # (AUTO) 7.1 10^3/uL (1.5-6.6); NEUTROPHILS % (AUTO) 63.3 %; PLT - PLATELET COUNT 237 10^3/uL (130-450); RED BLOOD COUNT 5.18 10^6/uL (4.70-6.10); RED CELL DISTRIBUTION WIDTH 13.8 % (12.0-15.0); WHITE BLOOD COUNT 11.2 x10^3/uL (4.8-10.8)
[2020-12-31 15:10] LABS: ALBUMIN 4.1 g/dL (3.2-5.5); ALKALINE PHOSPHATASE 63 IU/L (42-121); ALT ALANINE AMINOTRANSFERASE 42 IU/L (10-60); AST ASPARTATE AMINOTRANSFERASE 21 IU/L (10-42); BILIRUBIN,TOTAL 0.9 mg/dL (0.2-1.0); BUN - BLOOD UREA NITROGEN 19 mg/dL (6-20); CARBON DIOXIDE - CO2 27 mmol/L (21-32); CHLORIDE 100 mmol/L (101-111); CHOLESTEROL 132 mg/dL; GFR - MDRD 74 (>89); GLUCOSE 127 mg/dL (70-100); HDL CHOLESTEROL 33 mg/dL; LDL CHOLESTEROL,CALCULATED 70 mg/dL; LDL/HDL RATIO 2.1 (<3.6); POTASSIUM 4.2 mmol/L (3.5-5.0); SODIUM 136 mmol/L (135-145); TOTAL PROTEIN 6.2 g/dL (6.7-8.2); TRIGLYCERIDES 147 mg/dL; VLDL CHOLESTEROL 29 mg/dL
== END 2020-12-31 07:18 | disposition home or self-care (01) ==
LOC: LAB.S 07:17
PROVIDERS: ATTEND Internal Medicine
DX: I10 Essential (primary) hypertension (principal); E78.5 Hyperlipidemia, unspecified
CPT/HCPCS: 36415; 80053; 80061; 83721; 84153; 85025

== ENCOUNTER 2021-05-04 10:33 | Outpatient (CLI) | payer MEDICARE, BC ==
[2021-05-04 14:59] LABS: BASOPHILS % (AUTO) 0.3 %; EOSINOPHILS # (AUTO) 0.1 10^3/uL (0.0-0.7); EOSINOPHILS % (AUTO) 0.5 %; HCT - HEMATOCRIT 50.8 % (42.0-52.0); HGB - HEMOGLOBIN 16.9 g/dL (14.0-18.0); LYMPHOCYTES # (AUTO) 2.9 10^3/uL (1.5-3.5); MEAN CORPUSCULAR HEMOGLOBIN 32.3 pg (27.0-31.0); MEAN CORPUSCULAR HGB CONC 33.3 g/dL (32.0-36.0); MEAN CORPUSCULAR VOLUME 97.1 fL (80.0-94.0); MEAN PLATELET VOLUME 10.7 fL (7.4-11.4); MONOCYTES # (AUTO) 0.8 10^3/uL (0.0-1.0); NEUTROPHILS # (AUTO) 7.7 10^3/uL (1.5-6.6); NEUTROPHILS % (AUTO) 66.8 %; PLT - PLATELET COUNT 233 10^3/uL (130-450); RED BLOOD COUNT 5.23 10^6/uL (4.70-6.10); RED CELL DISTRIBUTION WIDTH 13.4 % (12.0-15.0); WHITE BLOOD COUNT 11.6 x10^3/uL (4.8-10.8)
[2021-05-04 15:20] LABS: ALBUMIN 4.4 g/dL (3.2-5.5); BILIRUBIN,TOTAL 0.9 mg/dL (0.2-1.0); CALCIUM 9.4 mg/dL (8.5-10.3); POTASSIUM 4.3 mmol/L (3.5-5.0); TOTAL PROTEIN 6.6 g/dL (6.7-8.2)
[2021-05-04 15:34] LABS: THYROID STIMULATING HORMONE 1.44 uIU/mL (0.34-5.60)
== END 2021-05-04 10:34 | disposition home or self-care (01) ==
LOC: LAB.S 10:33
PROVIDERS: ATTEND Internal Medicine
DX: I10 Essential (primary) hypertension (principal); R53.83 Other fatigue
CPT/HCPCS: 36415; 80053; 84443; 85025

== ENCOUNTER 2021-05-06 14:11 | Emergency (ER) | payer MEDICARE, BC ==
[2021-05-06] MEDS ORDERED: BUTALB/ACETAM/CAFF 50/325/40MG TABLET PO STA (14:38)
--- NOTE | 2021-05-06 14:39 | ED Physician Documentation ---
History of Present Illness - Stated complaint Stated Complaint: CONFUSION - Chief complaint Chief Complaint: Neuro - History obtained from History obtained from: Patient - History of Present Illness Timing: How many hours ago (12) Pain level max: 8 Pain level now: 6 - Additonal information Additional information: Patient is a 70-year-old male who has a history of a stroke in 2018. He states that last night around 2 AM started developing headache, this was followed by worsening right-sided weakness than usual. He states he is dragging his right leg and having difficulty walking. He also states he is feeling like he is having difficulty understanding words as they are spoken to him. He states he has been taking all of his medication at home. He is on Eliquis currently. He used to be on Plavix but this has been stopped. Did not take aspirin today. Nothing makes it better or worse. Review of Systems Ten Systems: 10 systems reviewed and negative Constitutional: denies: Fever, Chills Throat: denies: Sore throat Cardiac: denies: Chest pain / pressure, Palpitations Respiratory: denies: Dyspnea, Cough GI: denies: Nausea, Vomiting, Diarrhea Skin: denies: Rash Musculoskeletal: denies: Neck pain, Back pain Neurologic: denies: Numbness, Seizure, Confused, Head injury, LOC PD PAST MEDICAL HISTORY - Past Medical History Cardiovascular: Atrial fibrillation Respiratory: Shortness of breath Endocrine/Autoimmune: None GI: GERD, Other : None HEENT: None Psych: None Musculoskeletal: None Derm: Eczema - Past Surgical History Past Surgical History: Yes General: Cholecystectomy, Appendectomy Ortho: Spine surgery Cardiovascular: Other - Present Medications Home Medications: Ambulatory Orders Medication Instructions Recorded Confirmed Omeprazole [PriLOSEC] 20 mg ORAL QDAC 04/24/16 11/19/17 QUEtiapine [SEROquel] 100 mg PO DAILY PRN 04/24/16 11/19/17 ARIPiprazole [Abilify] 20 mg PO DAILY 11/19/17 11/19/17 Venlafaxine HCl [Venlafaxine HCl 300 mg PO DAILY 11/19/17 11/19/17 ER] lamoTRIgine [LaMICtal] 50 mg PO DAILY 11/19/17 11/19/17 Atorvastatin [Lipitor] 10 mg PO QPM tablet 11/21/17 Clopidogrel [Plavix] 75 mg PO DAILY tablet 11/21/17 Ibuprofen [Motrin] 600 mg PO Q6HR PRN tablet 11/21/17 Nitroglycerin [Nitrostat] 0.4 mg SL Q5MIN PRN tablet 11/21/17 Apixaban [Eliquis] 10 mg PO BID 12/12/17 12/12/17 Benzonatate [Tessalon] 100 mg PO TID PRN #25 capsule 12/12/17 Doxycycline Monohydrate 100 mg PO BID #14 tablet 12/12/17 Gabapentin [Neurontin] 100 mg PO TID 12/12/17 12/12/17 HYDROcod/ACETAM 5/325 [[place] 5/325] 1 tab PO Q6H PRN #15 tablet 12/12/17 dexAMETHasone [Decadron] 4 mg PO DAILY #5 tablet 12/12/17 lisinopriL [Prinivil] 5 mg PO DAILY 12/12/17 12/12/17 - Allergies Allergies/Adverse Reactions: Allergies Allergy/AdvReac Type Severity Reaction Status Date / Time No Known Drug Allergies Allergy Verified 03/16/17 21:14 - Social History Does the pt smoke?: No Smoking Status: Never smoker Does the pt drink ETOH?: Yes Does the pt have substance abuse?: No - Immunizations Immunizations are current?: Yes Immunizations: TDAP >10years/unknown - POLST Patient has POLST: No PD ED PE NORMAL - Vitals Vital signs reviewed: Yes - General General: Alert and oriented X 3, No acute distress, Well developed/nourished - HEENT HEENT: Atraumatic, PERRL, Ears normal, Moist mucous membranes, Pharynx benign - Neck Neck: Supple, no meningeal sign - Cardiac Cardiac: RRR, Strong equal pulses - Respiratory Respiratory: No respiratory distress, Clear bilaterally - Abdomen Abdomen: Soft, Non tender, Non distended - Back Back: No spinal TTP - Derm Derm: Warm and dry - Extremities Extremities: No edema, No calf tenderness / cord - Neuro Neuro: Alert and oriented X 3, performance tester 2-12 intact, No sensory deficit, Normal speech, Other (Mild right upper and right lower weakness) Eye Opening: Spontaneous Motor: Obeys Commands Verbal: Oriented GCS Score: 15 - Psych Psych: Normal mood, Normal affect Results - Vitals Vitals: Vital Signs - 24 hr 05/06/21 05/06/21 05/06/21 14:14 14:37 14:53 Temperature 36.3 C L Heart Rate 45 L 49 L 46 L Respiratory 16 14 14 Rate Blood Pressure 112/63 113/83 H 113/83 H O2 Saturation 95 95 94 05/06/21 05/06/21 05/06/21 16:48 18:08 18:23 Temperature Heart Rate 46 L 50 L 53 L Respiratory 16 20 22 Rate Blood Pressure 135/66 H 199/88 H O2 Saturation 96 99 98 05/06/21 19:19 Temperature Heart Rate 51 L Respiratory 25 H Rate Blood Pressure 162/74 H O2 Saturation 92 Oxygen O2 Source Room air - EKG (time done) 1604 Rate: Rate (enter#) (46) Rhythm: Sinus bradycardia [place]: Normal Intervals: Normal ID QRS: Normal Ischemia: Normal ST segments 1807 Rate: Rate (enter#) (55) Rhythm: NSR [place]: Normal Intervals: Normal ID QRS: Normal Ischemia: Normal ST segments - Labs Labs: Laboratory Tests 05/06/21 05/06/21 05/06/21 14:32 14:32 14:32 WBC 14.6 H RBC 5.10 Hgb 16.5 Hct 49.1 MCV 96.3 H MCH 32.4 H MCHC 33.6 RDW 13.5 Plt Count 222 MPV 9.9 Neut # (Auto) 10.3 H Lymph # (Auto) 3.1 [place] # (Auto) 1.0 Eos # (Auto) 0.1 Baso # (Auto) 0.1 Absolute Nucleated RBC 0.00 Nucleated RBC % 0.0 PT 15.5 H INR 1.4 H APTT 32.9 Sodium 139 Potassium 4.2 Chloride 106 Carbon Dioxide 25 Anion Gap 8.0 BUN 16 Creatinine 1.0 Estimated GFR (MDRD) 74 L Glucose 110 H Calcium 9.5 Total Bilirubin 0.8 AST 22 ALT 34 Alkaline Phosphatase 62 Total Protein 6.6 L Albumin 4.1 Globulin 2.5 Albumin/Globulin Ratio 1.6 Urine Color Urine Clarity Urine pH Ur Specific [place] Urine Protein Urine Glucose (UA) Urine Ketones Urine Occult Blood Urine Nitrite Urine Bilirubin Urine Urobilinogen Ur Leukocyte Esterase Urine RBC Urine WBC Ur Squamous Epith Cells Urine Bacteria Ur Microscopic Review Urine Culture Comments Nasal Adenovirus (PCR) Nasal B. parapertussis DNA (PCR) Nasal Coronavir 229E PCR Nasal Coronavir HKU1 PCR Nasal Coronavir NL63 PCR Nasal Coronavir OC43 PCR Nasal Enterovir/Rhinovir PCR Nasal Influenza B PCR Nasal Influenza A PCR Nasal Parainfluen 1 PCR Nasal Parainfluen 2 PCR Nasal Parainfluen 3 PCR Nasal Parainfluen 4 PCR Nasal RSV (PCR) Nasal B.pertussis DNA PCR Nasal C.pneumoniae (PCR) Axel Human Metapneumo PCR Nasal M.pneumoniae (PCR) Nasal SARS-CoV-2 (PCR) Last Dose Date Last Dose Time Dorr 05/06/21 05/06/21 05/06/21 14:32 14:41 16:00 WBC RBC Hgb Hct MCV MCH MCHC RDW Plt Count MPV Neut # (Auto) Lymph # (Auto) [place] # (Auto) Eos # (Auto) Baso # (Auto) Absolute Nucleated RBC Nucleated RBC % PT INR APTT Sodium Potassium Chloride Carbon Dioxide Anion Gap BUN Creatinine Estimated GFR (MDRD) Glucose Calcium Total Bilirubin AST ALT Alkaline Phosphatase Total Protein Albumin Globulin Albumin/Globulin Ratio Urine Color YELLOW Urine Clarity SL. CLOUDY Urine pH 7.0 Ur Specific [place] 1.010 Urine Protein NEGATIVE Urine Glucose (UA) NEGATIVE Urine Ketones NEGATIVE Urine Occult Blood SMALL H Urine Nitrite POSITIVE H Urine Bilirubin NEGATIVE Urine Urobilinogen 0.2 (NORMAL) Ur Leukocyte Esterase NEGATIVE Urine RBC 0-5 Urine WBC 6-10 H Ur Squamous Epith Cells FEW Squamous Urine Bacteria Many H Ur Microscopic Review INDICATED Urine Culture Comments INDICATED Nasal Adenovirus (PCR) NOT DETECTED Nasal B. parapertussis DNA (PCR) NOT DETECTED Nasal Coronavir 229E PCR NOT DETECTED Nasal Coronavir HKU1 PCR NOT DETECTED Nasal Coronavir NL63 PCR NOT DETECTED Nasal Coronavir OC43 PCR NOT DETECTED Nasal Enterovir/Rhinovir PCR NOT DETECTED Nasal Influenza B PCR NOT DETECTED Nasal Influenza A PCR NOT DETECTED Nasal Parainfluen 1 PCR NOT DETECTED Nasal Parainfluen 2 PCR NOT DETECTED Nasal Parainfluen 3 PCR NOT DETECTED Nasal Parainfluen 4 PCR NOT DETECTED Nasal RSV (PCR) NOT DETECTED Nasal B.pertussis DNA PCR NOT DETECTED Nasal C.pneumoniae (PCR) NOT DETECTED Axel Human Metapneumo PCR NOT DETECTED Nasal M.pneumoniae (PCR) NOT DETECTED Nasal SARS-CoV-2 (PCR) NOT DETECTED Last Dose Date Not Reportable Last Dose Time Not Reportable Dorr 0.17 - Rads (name of study) CTA head Radiology: Final report received, EMP read contemporaneously, See rad report CTA neck Radiology: Final report received, EMP read contemporaneously, See rad report PD MEDICAL DECISION MAKING - ED course Complexity details: reviewed results, re-evaluated patient, considered differential, d/w patient ED course: 70-year-old male with recurrent stroke symptoms. Worsening than his usual baseline. He is currently on Eliquis. Is not currently taking Plavix. He is on a statin already. Took his Eliquis this morning. He is found to have a focal calcification, 80 to 90% luminal narrowing in the left proximal internal carotid artery, worsened since 2018. I spoke with neurology from [place], they recommend transfer for vascular consult and higher level of care. Neurology also recommends loading with Plavix 300 mg and giving aspirin. They also recommend starting a statin but the patient is already on this, therefore it was not given. We do not have MRI here tomorrow either. We will search the region for a bed. Patient is currently stable and feels like his symptoms are stable if not slightly better (1730) than when he arrived. Patient will be signed out to the oncoming emergency department physician for further care. See their note for transfer. Headache has resolved and patient is still feeling well at 1930 at change of shift. CTA neck: IMPRESSION: Focal calcification with 80-90% luminal narrowing seen involving the left proximal internal carotid artery, which is clearly worse than in 2018. No right internal carotid artery stenosis is seen. The proximal vertebral arteries are obscured. Incidental note is made of: C5-C6 anterior fixation hardware. CTA head: IMPRESSION: No intracranial hemorrhage is seen. No significant intracranial abnormality is seen. No acute intracranial arterial abnormality can be seen. There is again seen prominent atelectatic calcification and luminal narrowing of the intracranial internal carotid arteries, with 70-80% narrowing on both sides. The left vertebral artery is dominant to the right. Departure - Departure Disposition: 02 Transfer Acute Care Hosp Clinical Impression: Stroke-like symptoms, Bradycardia UTI (urinary tract infection) Qualifiers: Urinary tract infection type: acute cystitis Hematuria presence: without hematuria Qualified Code(s): N30.00 - Acute cystitis without hematuria Headache Qualifiers: Headache type: unspecified Headache chronicity pattern: acute headache Intractability: not intractable Qualified Code(s): R51.9 - Headache, unspecified Condition: Stable NIHSS - Time Time: 14:30 - Level of Consciousness Level of consciousness: (0) Alert, Keenly responsive LOC Questions: (0) Answers both Q's correct LOC Commands: (0) Performs both correctly - Gaze Best Gaze: (0) Normal - Visual Visual: (0) No loss - Facial Palsy Facial Palsy: (0) Normal, symmetrical movement - Motor Arms (both separate) Motor Arm (right): (1) Drift Motor Arm (left): (0) No drift - Motor Legs (both separate) Motor Leg (right): (1) Drift Motor Leg (left): (0) No drift - Limb Ataxia Limb Ataxia: (0) Absent - Sensory Sensory: (0) Normal - Best Language Best Language: (0) No aphasia - Dysarthria Dysarthria: (0) Normal - Extinction and Inattention (formally neg Extinction and inattention: (0) No abnormality - Total Score/Results Total Score/Result: 2
[2021-05-06 14:53] LABS: BASOPHILS # (AUTO) 0.1 10^3/uL (0.0-0.1); BASOPHILS % (AUTO) 0.3 %; EOSINOPHILS # (AUTO) 0.1 10^3/uL (0.0-0.7); EOSINOPHILS % (AUTO) 0.4 %; HCT - HEMATOCRIT 49.1 % (42.0-52.0); HGB - HEMOGLOBIN 16.5 g/dL (14.0-18.0); LYMPHOCYTES # (AUTO) 3.1 10^3/uL (1.5-3.5); LYMPHOCYTES % (AUTO) 21.1 %; MEAN CORPUSCULAR HEMOGLOBIN 32.4 pg (27.0-31.0); MEAN CORPUSCULAR HGB CONC 33.6 g/dL (32.0-36.0); MEAN CORPUSCULAR VOLUME 96.3 fL (80.0-94.0); MEAN PLATELET VOLUME 9.9 fL (7.4-11.4); NEUTROPHILS # (AUTO) 10.3 10^3/uL (1.5-6.6); NEUTROPHILS % (AUTO) 70.6 %; PLT - PLATELET COUNT 222 10^3/uL (130-450); RED CELL DISTRIBUTION WIDTH 13.5 % (12.0-15.0); WHITE BLOOD COUNT 14.6 x10^3/uL (4.8-10.8)
[2021-05-06 15:00] LABS: INR 1.4 (0.8-1.2); PT - PROTHROMBIN TIME 15.5 secs (9.9-12.6)
[2021-05-06 15:06] LABS: ALBUMIN 4.1 g/dL (3.2-5.5); ALBUMIN/GLOBULIN RATIO 1.6 (1.0-2.2); BILIRUBIN,TOTAL 0.8 mg/dL (0.2-1.0); CALCIUM 9.5 mg/dL (8.5-10.3); POTASSIUM 4.2 mmol/L (3.5-5.0); TOTAL PROTEIN 6.6 g/dL (6.7-8.2)
[2021-05-06 15:08] LABS: PARTIAL THROMBOPLASTIN TIME 32.9 secs (24.9-33.3)
[2021-05-06] MEDS ORDERED: IOPAMIDOL-300 50 ML VIAL ONE (15:25)
[2021-05-06 15:47] LABS: B. PARAPERTUSSIS- RESP PCR PAN NOT DETECTED; B. PERTUSSIS- RESP PCR PANEL NOT DETECTED; C. PNEUMONIAE- RESP PCR PANEL NOT DETECTED; CORONAVIRUS 229E-RESP PCR NOT DETECTED; CORONAVIRUS HKU1-RESP PCR NOT DETECTED; CORONAVIRUS NL63-RESP PCR NOT DETECTED; CORONAVIRUS OC43-RESP PCR NOT DETECTED; HUMAN METAPNEUMOVIRUS NOT DETECTED; INFLUENZA A- RESP PCR PANEL NOT DETECTED; INFLUENZA B - RESP PCR PANEL NOT DETECTED; M. PNEUMONIAE- RESP PCR PANEL NOT DETECTED; PARAINFLUENZA VIRUS 1 NOT DETECTED; PARAINFLUENZA VIRUS 2 NOT DETECTED; PARAINFLUENZA VIRUS 3 NOT DETECTED; PARAINFLUENZA VIRUS 4 NOT DETECTED; RHINOVIRUS/ENTEROVIRUS NOT DETECTED; RSV- RESP PCR PANEL NOT DETECTED; SARS-CoV-2 -RESP PCR PANEL NOT DETECTED
[2021-05-06 16:16] LABS: BILIRUBIN,URINE NEGATIVE (NEGATIVE); GLUCOSE, URINE (UA) NEGATIVE (NEGATIVE); KETONES,URINE (UA) NEGATIVE (NEGATIVE); LEUKOCYTE ESTERASE, URINE NEGATIVE (NEGATIVE); NITRITE,URINE POSITIVE (NEGATIVE); OCCULT BLOOD,URINE SMALL (NEGATIVE); PROTEIN,URINE NEGATIVE (NEGATIVE); UROBILINOGEN,URINE 0.2 (NORMAL) E.U./dL (NORMAL)
[2021-05-06] MEDS ORDERED: KETOROLAC 30 MG/ML VIAL IVP STA (16:17)
--- NOTE | 2021-05-06 16:19 | CT Report ---
PROCEDURE: ANGIO NECK W INDICATIONS: R sided weakness, h/o R sided CVA CONTRAST: IV CONTRAST: Isovue 300 ml: 80 PO CONTRAST: *NO PO CONTRAST TECHNIQUE: After the administration of intravenous contrast, 1.5 mm axial sections acquired from the aortic arch to the [place] of [place]. Coronal 3-D maximum intensity projection (MIP) and/or volume rendering ref ormats were then performed. For radiation dose reduction, the following was used: automated exposur e control, adjustment of mA and/or kV according to patient size. COMPARISON: 11/19/2017. Correlation is also made with the accompanying head CT angiogram, 05/06/2021. FINDINGS: Image quality: Excellent. Carotid system: The great vessels demonstrate a conventional anatomy as they arise from the aortic a rch. The origins of the common carotid arteries appear patent. The common carotid arteries demonstr ate normal calibers and courses. The left carotid bifurcation.Region demonstrates dense atelectatic calcification, with 80-90% luminal narrowing. Mild atherosclerotic change can be seen of the right proximal internal carotid artery, wi thout luminal stenosis. The more distal internal carotid arteries demonstrate normal course and calib er. Posterior circulation: The origins of the vertebral arteries are obscured by streak artifact. The m ore superior portions of the vertebral arteries demonstrate normal course and caliber. They join to form a normal appearing basilar artery. Soft tissues: Visualized neck soft tissues demonstrate no suspicious abnormalities. The thyroid is not well seen. Bones: No suspicious bony lesions. Visualized cervical spine appears normally aligned. C5-C6 post operative hardware can be seen anteriorly. At least moderate cervical spine degenerative change is se en. IMPRESSION: Focal calcification with 80-90% luminal narrowing seen involving the left proximal internal carotid a rtery, which is clearly worse than in 2018. No right internal carotid artery stenosis is seen. The proximal vertebral arteries are obscured. Incidental note is made of: C5-C6 anterior fixation hardware. The estimate of stenosis included in the report of the imaging study was calculated using the NASCET method Reviewed by: Darshan Vigil MD on 05/06/2021 3:18 PM TYLER Approved by: Darshan Vigil MD on 05/06/2021 3:18 PM AKLIUDMILA Station ID: [id number]
[2021-05-06 16:24] LABS: BACTERIA,URINE Many /HPF (None Seen); CLARITY,URINE SL. CLOUDY (CLEAR); RBC,URINE 0-5 /HPF (0-5); SQUAMOUS EPITHELIAL CELL,UR FEW Squamous (<= Few)
--- NOTE | 2021-05-06 16:24 | CT Report ---
PROCEDURE: ANGIO HEAD W/WO INDICATIONS: R sided weakness, h/o R sided CVA CONTRAST: IV CONTRAST: Isovue 300 ml: 80 PO CONTRAST: *NO PO CONTRAST TECHNIQUE: Precontrast 4.5 mm thick angled axial sections acquired from the foramen magnum to the vertex. Afte r the administration of intravenous contrast, 1 mm thick sections acquired through the [place] of [place] is. Postcontrast 4.5 mm thick sections then re-acquired from the foramen magnum to the vertex. 3-di mensional tnrizvw-agixsacru-vzzimujhxk (MIP) and/or volume rendering reformats were acquired of the c entral intracranial vasculature. For radiation dose reduction, the following was used: automated ex posure control, adjustment of mA and/or kV according to patient size. COMPARISON: [id number]. Correlation is also made with the accompanying neck CT angiogram, 05/06/2021 and t he prior head CT, 12/12/2017 FINDINGS: Image quality: There is streak artifact seen through the skull base. Motion artifact is noted. Anterior circulation: Intracranial internal carotid arteries demonstrate atherosclerotic calcificati on and irregularity, with 70-80% narrowing on both sides. The flow within the paired anterior cerebr al arteries is normal and symmetric. The flow within the middle cerebral arteries is normal and symm etric. The anterior communicating artery is seen. No aneurysms are seen. Posterior circulation: Visualized portions of the vertebral arteries demonstrate normal caliber, and join to form a normal appearing basilar artery. The left vertebral artery is dominant to the right. Flow within the posterior cerebral arteries is normal and symmetric. No aneurysms are seen. CSF spaces: Ventricles are normal in size and shape. Basal cisterns are patent. No extra-axial flu id collections. Brain: No midline shift. No intracranial bleeds or masses. Last-white matter interface appears int act. Skull and face: Calvarium and facial bones appear intact, without suspicious lesions. Sinuses: Visualized sinuses and mastoids are clear. IMPRESSION: No intracranial hemorrhage is seen. No significant intracranial abnormality is seen. No acute intracranial arterial abnormality can be seen. There is again seen prominent atelectatic calcification and luminal narrowing of the intracranial int ernal carotid arteries, with 70-80% narrowing on both sides. The left vertebral artery is dominant to the right. Reviewed by: Darshan Vigil MD on 05/06/2021 3:23 PM AKDT Approved by: Darshan Vigil MD on 05/06/2021 3:23 PM TYLER Station ID: [id number]
[2021-05-06] MEDS ORDERED: cefTRIAXone 1 GM VIAL IVP STA (16:36)
[2021-05-06] MEDS ORDERED: MORPHINE 2 MG/ML CARPUJECT IVP STA (17:05)
[2021-05-06 17:24] LABS: LITHIUM 0.17 mmol/L
[2021-05-06] MEDS ORDERED: ASPIRIN 325 MG TABLET PO STA (17:24)
[2021-05-06] MEDS ORDERED: CLOPIDOGREL 300 MG TABLET PO STA (17:24)
[2021-05-06] MEDS ORDERED: ONDANSETRON 4 MG/2 ML VIAL IVP STA (17:52)
[2021-05-06] MEDS ORDERED: oxyCODONE 5 MG TABLET PO STA (18:10)
[2021-05-06] MEDS ORDERED: IOPAMIDOL-300 50 ML VIAL IVP ONE (19:44)
--- NOTE | 2021-05-06 19:52 | ED Physician Documentation ---
ED Addendum - Addendum Addendum: 05/06/21 19:52 D/w Dr. Lopez and Dr. Kamara, neurology at [facility] and [facility] normally would recommend MRI. States no MRI available here until tuesday. The recommend add aspirin and repeat head CT tomorrow. Then recommend talk to vascular surgery tomorrow for a procedure next week. Dr. Bennett, hospitalist here, who is uncomfortable with this plan Will continue to try to transfer. Departure - Departure Disposition: ED Place in Observation Clinical Impression: Stroke-like symptoms, Bradycardia UTI (urinary tract infection) Qualifiers: Urinary tract infection type: acute cystitis Hematuria presence: without hematuria Qualified Code(s): N30.00 - Acute cystitis without hematuria Headache Qualifiers: Headache type: unspecified Headache chronicity pattern: acute headache Intractability: not intractable Qualified Code(s): R51.9 - Headache, unspecified Condition: Stable
[2021-05-07] MEDS ORDERED: ACETAMINOPHEN 325 MG TABLET PO STA (00:08)
[2021-05-07] MEDS ORDERED: HYDROmorphone 1 MG/ML CARPUJECT IVP STA ×5 (01:08→16:54)
[2021-05-07] MEDS ORDERED: MORPHINE 2 MG/ML CARPUJECT IVP PRN (01:54)
[2021-05-07] MEDS ORDERED: ATROPINE 1% OPHTH DROPS 2 ML SL PRN (01:54)
[2021-05-07] MEDS ORDERED: GLYCOPYRROLATE 1 MG/5 ML VIAL SUBQ PRN (01:54)
[2021-05-07] MEDS ORDERED: ACETAMINOPHEN 650 MG SUPP PR PRN (01:54)
--- NOTE | 2021-05-07 02:00 | HISTORY & PHYSICAL EXAMINATION ---
Chief Complaint - Chief Complaint Chief Complaint: brain herniation History of Present Illness - Admitted From Admitted From:: home - History Obtained From Records Reviewed: [facility], History obtained from: ER MD Exam Limitations: patient is eminently dying History - Past Medical History Cardiovascular: reports: Atrial fibrillation Respiratory: reports: Shortness of breath Neuro: reports: Headaches, Migraines Endocrine/Autoimmune: reports: None GI: reports: GERD, Other : reports: None HEENT: reports: None Psych: reports: None Musculoskeletal: reports: None Derm: reports: Eczema MRSA Hx?: No - Past Surgical History General: reports: Cholecystectomy, Appendectomy Ortho: reports: Spine surgery Cardiovascular: reports: Other - Family & Social History Family History: Mother: Alive and Well, CVA/TIA, Hyperlipidemia, Father: , Cancer, COPD/Emphysema, Hypertension - Substance History Use: Uses substance without health or social issues: NONE - POLST Patient has POLST: No Meds/Allgy - Home Medications Home Medications: Ambulatory Orders Medication Instructions Recorded Confirmed Omeprazole [PriLOSEC] 20 mg ORAL QDAC 04/24/16 11/19/17 QUEtiapine [SEROquel] 100 mg PO DAILY PRN 04/24/16 11/19/17 ARIPiprazole [Abilify] 20 mg PO DAILY 11/19/17 11/19/17 Venlafaxine HCl [Venlafaxine HCl 300 mg PO DAILY 11/19/17 11/19/17 ER] lamoTRIgine [LaMICtal] 50 mg PO DAILY 11/19/17 11/19/17 Atorvastatin [Lipitor] 10 mg PO QPM tablet 11/21/17 Clopidogrel [Plavix] 75 mg PO DAILY tablet 11/21/17 Ibuprofen [Motrin] 600 mg PO Q6HR PRN tablet 11/21/17 Nitroglycerin [Nitrostat] 0.4 mg SL Q5MIN PRN tablet 11/21/17 Apixaban [Eliquis] 10 mg PO BID 12/12/17 12/12/17 Benzonatate [Tessalon] 100 mg PO TID PRN #25 capsule 12/12/17 Doxycycline Monohydrate 100 mg PO BID #14 tablet 12/12/17 Gabapentin [Neurontin] 100 mg PO TID 12/12/17 12/12/17 HYDROcod/ACETAM 5/325 [[place] 5/325] 1 tab PO Q6H PRN #15 tablet 12/12/17 dexAMETHasone [Decadron] 4 mg PO DAILY #5 tablet 12/12/17 lisinopriL [Prinivil] 5 mg PO DAILY 12/12/17 12/12/17 - Allergies Allergies/Adverse Reactions: Allergies Allergy/AdvReac Type Severity Reaction Status Date / Time No Known Drug Allergies Allergy Verified 03/16/17 21:14 Exam - Vital Signs Vital Signs: Vital Signs x48h Temp Pulse Resp BP Pulse Ox 05/07/21 01:40 46 L 22 159/84 H 95 05/07/21 01:18 49 L 22 142/76 H 98 05/07/21 00:35 36.3 C L 48 L 18 137/83 H 95 05/07/21 00:14 52 L 16 148/71 H 94 05/06/21 23:33 48 L 16 152/88 H 94 05/06/21 20:17 50 L 30 H 151/71 H 92 05/06/21 19:19 51 L 25 H 162/74 H 92 05/06/21 18:23 53 L 22 199/88 H 98 05/06/21 18:08 50 L 20 99 Conclusion/Plan - Lab Results Fish Bones: 05/06/21 14:32 05/06/21 14:32
[2021-05-07] MEDS ORDERED: HYDROcod/ACETAM 5/325 MG TABLET PO STA (04:17)
--- NOTE | 2021-05-07 07:40 | CT Report ---
PROCEDURE: HEAD WO INDICATIONS: CVA sx TECHNIQUE: Noncontrast 4.5 mm thick angled axial sections acquired from the foramen magnum to the vertex. For r adiation dose reduction, the following was used: automated exposure control, adjustment of mA and/or kV according to patient size. COMPARISON: None. FINDINGS: Image quality: Limited by nonvisualization of the inferior margins of the posterior middle cranial fo ssa, nonvisualization of the skull base and patient motion. CSF spaces: Basal cisterns are patent. No extra-axial fluid collections. Ventricles are normal in size and shape. Brain: No midline shift. No intracranial masses or hemorrhage. Last-white matter interface is norm al. There is mild, diffuse cerebral volume loss. There are mild periventricular and subcortical white matter chronic microvascular ischemic changes. Skull and face: Calvarium and visualized facial bones are intact, without suspicious lesions. Sinuses: Visualized sinuses and mastoids are clear. IMPRESSION: No acute intracranial disease process within limitations of the study. Reviewed by: Anita Richards MD, PhD on 05/07/2021 7:39 AM PDT Approved by: Anita Richards MD, PhD on 05/07/2021 7:39 AM PDT Station ID: [id number]
[2021-05-07] MEDS: ONDANSETRON ODT 4 MG TABLET TL PRN ×2 (07:41→17:16)
--- NOTE | 2021-05-07 08:32 | ED Physician Documentation ---
ED Addendum - Addendum Addendum: 05/07/21 08:29 Care of this 70-year-old male who presents with confusion and headache is turned over to me this morning with a repeat CT scan of the head pending. The patient has had prior CVA and has severe atherosclerosis at the Left bifucation(progression since 2018 on studies done yesterday). He has prior L pontine infarct and prior right sided weakness. He has recurrence of symptoms but the headache is the more dramatic portion of the patients complaints. He does not usually get headache and he has a central headache and feels confused. He has required repeated doses of pain medication through the night for his headache. He has been diagnosed with UTI and given a dose of cerftriaxone. This morning on exam he is in pain from the headache, appears to give adequate history despite being distracted with the pain of his headache. He has increased right sided weakness and reports that since 2am yesterday he has been dragging his right foot. The repeat CT has been done with the following results results impression: 1. No acute CT evidence of acute intracranial abnormality. The inferior portion of the posterior fossa was not included in the [id number] additional sections to this level is recommended to complete the study. 2. Cerebral volume loss, intracranial atherosclerotic disease and mild sequelae of chronic small vessel ischemic disease. I was able to contact the patient's who indicates that over the past month Tim it is had complaints of feeling like his gyro-scope was off when he is opening his eyes and trying to move around similar to what is had previously with his stroke symptoms. He has developed increased right-sided weakness begin curly 2 AM yesterday. She will be bringing up his medications. 05/07/21 08:32 05/07/21 08:34 05/07/21 08:38 05/07/21 09:00 05/07/21 14:23 The call back to the [facility] with results of CT led to a need for MRI for further stratification. They want to make sure they will be doing something for the patient that cannot be done here if they are to prioratized a bed. We are not able to get MR here today and the patient is transferred to [facility] for MRI and he will be transferred back here when the study is complete. We have paged vascular surgery at [facility] as the patient's practice consultant is at [facility]. Dr. Mirella Camacho vascular surgery at [facility] recommends transfer of the patient to [facility] with images and admission to the hospitalist team for consultation with the stroke team and her. He will likely need procedure done and the timing should be about 48 hours or more after the insult. MRI is pending. 05/07/21 15:00 The hospitalist at [facility] Dr. Sanjeev Champagne is willing to accept this patient in transfer for further evaluation and treatment. 05/07/21 15:34 The patient's MRI done at [facility] is read as without evidence of acute or subacute infarct.
[2021-05-07] MEDS ORDERED: lamoTRIgine 100 MG TABLET PO STA (09:01)
[2021-05-07] MEDS ORDERED: VENLAFAXINE ER 75 MG CAPSULE PO STA (09:02)
[2021-05-07 18:10] VITALS: BP 137/71
== END 2021-05-07 18:20 | disposition short-term general hospital (02) ==
LOC: ED 14:11
DX: R51.9 Headache, unspecified (principal); R41.0 Disorientation, unspecified; R29.898 Other symptoms and signs involving the musculoskeletal system; R00.1 Bradycardia, unspecified; N30.00 Acute cystitis without hematuria; I65.22 Occlusion and stenosis of left carotid artery; Z86.73 Personal history of transient ischemic attack (TIA), and cerebral infarction without residual deficits; Z79.01 Long term (current) use of anticoagulants; Z20.822 Contact with and (suspected) exposure to COVID-19
CPT/HCPCS: 36415; 70450; 70496; 70498; 80053; 80178; 81001; 85025; 85610; 85730; 87086; 87181; 87631; 93005; 96374; 96375; 99284; 99285; A9270; J1170; Q0162; Q9967; 0202U; 81003

== ENCOUNTER 2021-05-07 18:24 | Outpatient (CLI) | payer MEDICARE, BC | END 2021-05-07 23:59 | disposition short-term general hospital (02) | LOC: EMS 18:24 | PROVIDERS: ATTEND Emergency Medicine | DX: I63.232 Cerebral infarction due to unspecified occlusion or stenosis of left carotid arteries (principal); G81.91 Hemiplegia, unspecified affecting right dominant side | CPT/HCPCS: A0425; A0428 ==

== ENCOUNTER 2021-12-16 15:34 | Outpatient (CLI) | payer MEDICARE, BC ==
[2021-12-16 20:42] LABS: ALBUMIN 3.9 g/dL (3.2-5.5); ALBUMIN/GLOBULIN RATIO 1.8 (1.0-2.2); BILIRUBIN,TOTAL 0.6 mg/dL (0.2-1.0); CALCIUM 9.1 mg/dL (8.5-10.3); POTASSIUM 4.3 mmol/L (3.5-5.0); TOTAL PROTEIN 6.1 g/dL (6.7-8.2)
== END 2021-12-16 15:35 | disposition home or self-care (01) ==
LOC: LAB.S 15:34
PROVIDERS: ATTEND Physician Assistant
DX: R74.01 Elevation of levels of liver transaminase levels (principal); Z13.9 Encounter for screening, unspecified; R09.89 Other specified symptoms and signs involving the circulatory and respiratory systems
CPT/HCPCS: 36415; 80053; 82306

== ENCOUNTER 2021-12-29 15:45 | Outpatient (CLI) | payer MEDICARE, BC ==
--- NOTE | 2021-12-29 18:02 | Ultrasound Report ---
PROCEDURE: Duplex Lwr Ext Arterial RT INDICATIONS: DECREASED DORSALIS PEDIS PULSE TECHNIQUE: Color and pulse Doppler interrogation was performed of the right lower extremity arterial system, wit h image documentation. COMPARISON: None FINDINGS: Common femoral artery: 99.7 cm/sec, with triphasic flow. Deep femoral artery: 82.0 cm/sec, with triphasic flow. Proximal superficial femoral artery: 116.8 cm/sec, with biphasic flow. Mid superficial femoral artery: 128.1 cm/sec, with biphasic flow. Distal superficial femoral artery: 210.2 cm/sec, with biphasic flow. Popliteal artery: 98.2 cm/sec, with triphasic flow. Posterior tibial artery: 89.7 cm/sec, with triphasic flow. Anterior tibial artery/dorsalis pedis: 128.1 cm/sec, with biphasic flow. Last-scale imaging description: There is focal narrowing at the right SFA distally with poststenotic turbulence consistent with a stenosis less than 50%. IMPRESSION: 1. Less than 50% stenosis of the right distal SFA. 2. No hemodynamically significant stenosis. Reviewed by: Prabhu Castro on 12/29/2021 6:00 PM PDT Approved by: Prabhu Castro on 12/29/2021 6:00 PM PDT Station ID: [id number]
== END 2021-12-29 15:46 | disposition home or self-care (01) ==
LOC: DI 15:45
PROVIDERS: ATTEND Physician Assistant
DX: R09.89 Other specified symptoms and signs involving the circulatory and respiratory systems (principal)

== ENCOUNTER 2022-02-09 08:13 | Outpatient (CLI) | payer MEDICARE, BC ==
--- NOTE | 2022-02-10 11:44 | XRAY Report ---
PROCEDURE: Cervical Spine Complete INDICATIONS: CERVICAL MYELOPATHY TECHNIQUE: 4 views of the cervical spine acquired. COMPARISON: CT angiogram neck, 05/06/2021. FINDINGS: Bones: There are postsurgical changes with anterior fusion at C3-C6. The C4 and C5 vertebral bodies are not well seen. There is degenerative disc disease, moderate at C2-C3 and C6-C7. There is severe b ilateral facet arthropathy at C3-C4, C4-C5 and C5-C6. On flexion and extension, there is decreased ra nge of motion but stable alignment. Soft tissues: No prevertebral soft tissue swelling. IMPRESSION: 1. Post surgical changes with anterior fusion at C3-C6. The C4 and C5 vertebral bodies are not well v isualized. If clinically indicated, CT or MRI would be helpful for further evaluation. 2. The level degenerative disc and facet disease. 3. Stable alignment on flexion and extension. Reviewed by: Connor Dallas MD on 02/10/2022 11:42 AM PDT Approved by: Connor Dallas MD on 02/10/2022 11:42 AM PDT Station ID: [id number]
== END 2022-02-09 08:14 | disposition home or self-care (01) ==
LOC: DI 08:13
PROVIDERS: ATTEND Neurological Surgery
DX: G95.9 Disease of spinal cord, unspecified (principal); G82.50 Quadriplegia, unspecified; Z98.1 Arthrodesis status; M50.31 Other cervical disc degeneration, high cervical region; M47.812 Spondylosis without myelopathy or radiculopathy, cervical region

== ENCOUNTER 2022-03-15 09:48 | Outpatient (CLI) | payer MEDICARE, BC | END 2022-03-15 09:49 | disposition short-term general hospital (02) | LOC: EMS 09:48 | DX: R55 Syncope and collapse (principal); S09.90XA Unspecified injury of head, initial encounter; M54.2 Cervicalgia; R05.9 Cough, unspecified; R11.0 Nausea; W07.XXXA Fall from chair, initial encounter; Y92.009 Unspecified place in unspecified non-institutional (private) residence as the place of occurrence of the external cause; Z79.01 Long term (current) use of anticoagulants | CPT/HCPCS: A0425; A0427 ==

== ENCOUNTER 2022-03-26 07:34 | Outpatient (CLI) | payer MEDICARE, BC ==
--- NOTE | 2022-03-26 08:43 | Ultrasound Report ---
PROCEDURE: Head or Neck Soft Tissue INDICATIONS: SOFT TISSUE MASS TECHNIQUE: Real time scanning was performed of the left shoulder, with image documentation. COMPARISON: Left shoulder radiograph dated 03/10/2022. FINDINGS: Focused ultrasound examination of superior anterior left shoulder at the level of left clavicle shows a lobulated heterogeneously hypoechoic structure with through acoustic enhancement at patient's repo rted area of palpable lump and measures approximately 2.6 x 1.4 x 3.1 cm in size. No internal vascula rity is seen. There is possible postsurgical changes involving anterolateral humeral head suggest clinical correlat ion. IMPRESSION: 1. Finding is concerning for a organizing hematoma versus complex effusion in anterior lateral should er extending from lower neck to the level of glenohumeral joint and measures up to 2.6 x 1.4 x 3.1 cm in size. No internal vascularity is seen. No discrete soft tissue mass is noted. 2. Contour irregularity involving humeral head which may represent postsurgical changes versus osteoa rthritic changes. Consider MRI of shoulder for further evaluation if clinically indicated. Reviewed by: Alvaro Saul MD on 03/26/2022 8:41 AM PDT Approved by: Alvaro Saul MD on 03/26/2022 8:41 AM PDT Station ID: [id number]
== END 2022-03-26 07:35 | disposition home or self-care (01) ==
LOC: DI 07:34
PROVIDERS: ATTEND Physician Assistant
DX: M79.9 Soft tissue disorder, unspecified (principal); R93.6 Abnormal findings on diagnostic imaging of limbs; R93.89 Abnormal findings on diagnostic imaging of other specified body structures; I10 Essential (primary) hypertension; E78.2 Mixed hyperlipidemia; I48.0 Paroxysmal atrial fibrillation
CPT/HCPCS: 36415; 80053; 80061; 83721; 85025

== ENCOUNTER 2022-03-26 08:32 | Outpatient (CLI) | payer MEDICARE, BC ==
[2022-03-26 08:53] LABS: BASOPHILS % (AUTO) 0.3 %; EOSINOPHILS # (AUTO) 0.2 10^3/uL (0.0-0.7); EOSINOPHILS % (AUTO) 1.8 %; HGB - HEMOGLOBIN 15.7 g/dL (14.0-18.0); LYMPHOCYTES # (AUTO) 3.8 10^3/uL (1.5-3.5); LYMPHOCYTES % (AUTO) 31.4 %; MEAN CORPUSCULAR HEMOGLOBIN 33.1 pg (27.0-31.0); MEAN CORPUSCULAR HGB CONC 34.9 g/dL (32.0-36.0); MEAN CORPUSCULAR VOLUME 94.9 fL (80.0-94.0); MEAN PLATELET VOLUME 8.9 fL (7.4-11.4); MONOCYTES # (AUTO) 0.7 10^3/uL (0.0-1.0); MONOCYTES % (AUTO) 5.8 %; NEUTROPHILS # (AUTO) 7.4 10^3/uL (1.5-6.6); NEUTROPHILS % (AUTO) 60.4 %; PLT - PLATELET COUNT 258 10^3/uL (130-450); RED BLOOD COUNT 4.74 10^6/uL (4.70-6.10); WHITE BLOOD COUNT 12.2 x10^3/uL (4.8-10.8)
[2022-03-26 09:15] LABS: ALBUMIN 4.2 g/dL (3.2-5.5); ALBUMIN/GLOBULIN RATIO 1.6 (1.0-2.2); ALKALINE PHOSPHATASE 58 IU/L (42-121); ALT ALANINE AMINOTRANSFERASE 28 IU/L (10-60); AST ASPARTATE AMINOTRANSFERASE 18 IU/L (10-42); BILIRUBIN,TOTAL 0.7 mg/dL (0.2-1.0); BUN - BLOOD UREA NITROGEN 12 mg/dL (6-20); CALCIUM 9.5 mg/dL (8.5-10.3); CARBON DIOXIDE - CO2 26 mmol/L (21-32); CHLORIDE 102 mmol/L (101-111); CHOL/HDL RATIO 4.7 (<5.0); CHOLESTEROL 169 mg/dL; CREATININE 0.9 mg/dL (0.6-1.2); GFR - MDRD 84 (>89); GLUCOSE 127 mg/dL (70-100); HDL CHOLESTEROL 36 mg/dL; LDL CHOLESTEROL,CALCULATED 106 mg/dL; LDL/HDL RATIO 2.9 (<3.6); POTASSIUM 4.2 mmol/L (3.5-5.0); SODIUM 137 mmol/L (135-145); TOTAL PROTEIN 6.9 g/dL (6.7-8.2); TRIGLYCERIDES 137 mg/dL; VLDL CHOLESTEROL 27 mg/dL
== END 2022-03-26 08:33 | disposition home or self-care (01) ==
LOC: LAB 08:32
PROVIDERS: ATTEND Internal Medicine Cardiovascular Disease
DX: I10 Essential (primary) hypertension (principal); E78.2 Mixed hyperlipidemia; I48.0 Paroxysmal atrial fibrillation
CPT/HCPCS: 36415; 80053; 80061; 83721; 85025

== ENCOUNTER 2022-05-24 06:00 | Outpatient (CLI) | payer MEDICARE, BC ==
[2022-05-24 06:26] LABS: CALCIUM 9.4 mg/dL (8.5-10.3); CREATININE 0.8 mg/dL (0.6-1.2); POTASSIUM 4.1 mmol/L (3.5-5.0)
[2022-05-24 07:01] LABS: LITHIUM 0.09 mmol/L
== END 2022-05-24 06:01 | disposition home or self-care (01) ==
LOC: LAB 06:00
PROVIDERS: ATTEND Psychiatry & Neurology Psychiatry
DX: F31.9 Bipolar disorder, unspecified (principal)
CPT/HCPCS: 36415; 80048; 80178

== ENCOUNTER 2022-09-02 14:08 | Emergency (ER) | payer MEDICARE, BC ==
--- OUTSIDE RECORDS SUMMARY | 2022-09-02 14:32 | EXTERNAL MEDICAL SUMMARY RPT | Continuity of Care Document ---
:1950 Author Organization [facility] [address] [place] [address] Phone Allergies No information. Encounters No information. Functional Status No information. Immunizations No information. Medications No information. Problems date description facility 2022-06-15 10:15 Disease of esophagus, unspecified [facility] 2022-06-15 10:15 Dysphagia, unspecified [facility] 2022-06-15 10:15 Arthrodesis status [facility] Procedures No information. Results/Labs test date author facility value unit interpret ation Result panel 1 (unknown) (no (unknown) (unknown) (no value) (units (unk nown) date) unknown) (unknown) (no (unknown) (unknown) [id number] (units (unkno wn) date) unknown) (unknown) (no (unknown) (unknown) 06/15/22 (units (unkno wn) date) unknown) (unknown) (no (unknown) (unknown) [address] [place] [address] (units (unknown) date) unknown) (unknown) (no (unknown) (unknown) AP projection (units ( unknown) date) filming may also unknown) be performed with patient swallowing. (unknown) (no (unknown) (unknown) Accession Number: (units (unknown) date) [id number] unknown) (unknown) (no (unknown) (unknown) Age/Sex: 72 / M (units (unknown) date) Date of Service: unknown) (unknown) (no (unknown) (unknown) [place], [place] (units ( unknown) date) [id number] unknown) (unknown) (no (unknown) (unknown) Approved by: (units (u nknown) date) Connor Dallas M.D. on unknown) 06/15/2022 at 16:12 (unknown) (no (unknown) (unknown) COMPARISON: None. (units (unknown) date) unknown) (unknown) (no (unknown) (unknown) COMPARISON: (units (un known) date) unknown) (unknown) (no (unknown) (unknown) : 1950 (units (unknown) date) Acct:[id number] unknown) (unknown) (no (unknown) (unknown) Dictated by: (units (u nknown) date) Connor Dallas M.D. on unknown) 06/15/2022 at 16:11 (unknown) (no (unknown) (unknown) FINDINGS: (units (unkn own) date) unknown) (unknown) (no (unknown) (unknown) Function: The (units ( unknown) date) oral preparatory unknown) phase appears normal, with proper containment. (unknown) (no (unknown) (unknown) IMPRESSION: Trace (units (unknown) date) laryngeal unknown) penetration. Please see speech pathologist's (unknown) (no (unknown) (unknown) INDICATIONS: (units (u nknown) date) Disease of unknown) esophagus/Dysphagi a (unknown) (no (unknown) (unknown) [facility] (units (unknown) date) unknown) (unknown) (no (unknown) (unknown) Loc: [facility] (units (unkno wn) date) unknown) (unknown) (no (unknown) (unknown) Morphology: No (units (unknown) date) cricopharyngeal unknown) bar is identified. No cervical esophageal (unknown) (no (unknown) (unknown) Ordering (units (unkno wn) date) Provider: unknown) Paula Medina (unknown) (no (unknown) (unknown) PROCEDURE: FL (units ( unknown) date) BARIUM SWALLOW W unknown) SPEECH (unknown) (no (unknown) (unknown) Patient: (units (unkno wn) date) McdermottTim O unknown) MR#: [id number] (unknown) (no (unknown) (unknown) Procedure: FL (units ( unknown) date) barium swallow w unknown) speech (unknown) (no (unknown) (unknown) Signed (units (unkno wn) date) unknown) (unknown) (no (unknown) (unknown) TECHNIQUE: (units (unk nown) date) Examination was unknown) conducted in conjunction with speech pathology per (unknown) (no (unknown) (unknown) The (units (unkno wn) date) unknown) (unknown) (no (unknown) (unknown) XRay Report (units (un known) date) unknown) (unknown) (no (unknown) (unknown) Zenker's (units (unkno wn) date) diverticulum. No unknown) strictures. (unknown) (no (unknown) (unknown) also appear (units (un known) date) normal with all unknown) proffered substances. Trace laryngotracheal (unknown) (no (unknown) (unknown) aspiration. No (units (unknown) date) pathologic unknown) vallecular pooling. (unknown) (no (unknown) (unknown) detail. (units (unkno wn) date) unknown) (unknown) (no (unknown) (unknown) penetration. No (units (unknown) date) unknown) (unknown) (no (unknown) (unknown) protocol. In the (units (unknown) date) lateral unknown) projection, filming was performed of the patient (unknown) (no (unknown) (unknown) report for (units (unk nown) date) unknown) (unknown) (no (unknown) (unknown) standard (units (unkno wn) date) unknown) (unknown) (no (unknown) (unknown) subsequent oral (units (unknown) date) propulsive phase, unknown) pharyngeal phase, and esophageal phase of (unknown) (no (unknown) (unknown) swallowing (units (unk nown) date) unknown) (unknown) (no (unknown) (unknown) swallowing. (units (un known) date) unknown) (unknown) (no (unknown) (unknown) webs. No (units (unkno wn) date) unknown) Social History No information. Vital Signs No information.
[2022-09-02 14:47] LABS: BASOPHILS # (AUTO) 0.1 10^3/uL (0.0-0.1); BASOPHILS % (AUTO) 0.6 %; EOSINOPHILS # (AUTO) 0.3 10^3/uL (0.0-0.7); EOSINOPHILS % (AUTO) 2.7 %; HCT - HEMATOCRIT 45.8 % (42.0-52.0); LYMPHOCYTES # (AUTO) 3.6 10^3/uL (1.5-3.5); LYMPHOCYTES % (AUTO) 35.1 %; MEAN CORPUSCULAR HEMOGLOBIN 31.1 pg (27.0-31.0); MEAN CORPUSCULAR HGB CONC 32.8 g/dL (32.0-36.0); MEAN PLATELET VOLUME 9.3 fL (7.4-11.4); MONOCYTES # (AUTO) 0.8 10^3/uL (0.0-1.0); MONOCYTES % (AUTO) 8.3 %; NEUTROPHILS # (AUTO) 5.3 10^3/uL (1.5-6.6); NEUTROPHILS % (AUTO) 52.4 %; PLT - PLATELET COUNT 275 10^3/uL (130-450); RED BLOOD COUNT 4.82 10^6/uL (4.70-6.10); RED CELL DISTRIBUTION WIDTH 13.4 % (12.0-15.0); WHITE BLOOD COUNT 10.1 x10^3/uL (4.8-10.8)
[2022-09-02] MEDS ORDERED: oxyCODONE 5 MG TABLET PO STA ×2 (14:49→16:12)
--- NOTE | 2022-09-02 14:52 | ED Physician Documentation ---
History of Present Illness - Stated complaint Stated Complaint: ABD PX/SWOLLEN - Chief complaint Chief Complaint: Abd Pain - History obtained from History obtained from: Patient - Additonal information Additional information: 72-year-old gentleman with history of bipolar disorder, stroke, he is wheelchair dependent due to a neck issue, he has chronic neck and back pain and uses marijuana heavily. He presents for the evaluation of right upper quadrant swelling that has been progressive over the last 10 days associated with some new pedal edema. He notes he always has pedal edema on the right but now he has that worse and some pedal edema on the left. He is short of breath and is worried about liver disease. He has a history of fatty liver but does not drink. He started Tylenol 3 and gabapentin 6 days ago for pain. His is concerned that he has been goofy with word finding difficulties and some confusion that has been progressive. Review of Systems Constitutional: denies: Fever, Chills Throat: reports: Reviewed and negative Cardiac: reports: Reviewed and negative Respiratory: reports: Dyspnea, Cough PD PAST MEDICAL HISTORY - Past Medical History Cardiovascular: Atrial fibrillation Respiratory: Shortness of breath Neuro: Headaches, Migraines Endocrine/Autoimmune: None GI: GERD, Other : None HEENT: None Psych: None Musculoskeletal: None Derm: Eczema - Past Surgical History Past Surgical History: Yes General: Cholecystectomy, Appendectomy Ortho: Spine surgery Cardiovascular: Other - Present Medications Home Medications: Ambulatory Orders Medication Instructions Recorded Confirmed Venlafaxine HCl [Venlafaxine HCl 150 mg PO DAILY 11/19/17 05/07/21 ER] lamoTRIgine [LaMICtal] 100 mg PO DAILY 11/19/17 05/07/21 Apixaban [Eliquis] 10 mg PO BID 12/12/17 05/07/21 lisinopriL [Prinivil] 5 mg PO DAILY 12/12/17 05/07/21 Ezetimibe/Simvastatin 10 mg PO DAILY 05/07/21 05/07/21 [Ezetimibe-Simvastatin 10-10 mg] Rosuvastatin Calcium [Crestor] 10 mg PO DAILY 05/07/21 05/07/21 bisoproloL fumarate [Bisoprolol 5 mg PO DAILY 05/07/21 05/07/21 Fumarate] - Allergies Allergies/Adverse Reactions: Allergies Allergy/AdvReac Type Severity Reaction Status Date / Time No Known Drug Allergies Allergy Verified 09/02/22 14:22 - Social History Does the pt smoke?: No Smoking Status: Never smoker Does the pt drink ETOH?: Yes Does the pt have substance abuse?: No - Immunizations Immunizations are current?: Yes Immunizations: TDAP >10years/unknown - POLST Patient has POLST: No PD ED PE NORMAL - Vitals Vital signs reviewed: Yes - General General: Alert and oriented X 3, Other (He is tachypneic and audibly wheezy) - HEENT HEENT: PERRL, EOMI, Other (Without scleral icterus) - Neck Neck: Supple, no meningeal sign, No bony TTP - Cardiac Cardiac: RRR, No murmur - Respiratory Respiratory: Other (Tachypneic and audibly wheezy. They state that recent PCP PFTs were normal and albuterol does not help) - Abdomen Abdomen: Normal bowel sounds, Soft, Non tender, Other (Bedside ultrasound does not show free fluid) - Back Back: No CVA TTP, No spinal TTP - Derm Derm: Normal color, Warm and dry - Extremities Extremities: No calf tenderness / cord, Other (Mild left and moderate right pitting pedal edema) - Neuro Neuro: Alert and oriented X 3, Normal speech Eye Opening: Spontaneous Motor: Obeys Commands Verbal: Oriented GCS Score: 15 Results - Vitals Vitals: Vital Signs - 24 hr 09/02/22 09/02/22 09/02/22 14:14 14:51 15:51 Temperature 36 C L Heart Rate 90 65 64 Respiratory 34 H 27 H 25 H Rate Blood Pressure 152/100 H 144/100 H 147/75 H O2 Saturation 95 94 95 09/02/22 16:30 Temperature Heart Rate 64 Respiratory 30 H Rate Blood Pressure 148/79 H O2 Saturation 95 Oxygen O2 Source Room air - Labs Labs: Laboratory Tests 09/02/22 09/02/22 09/02/22 14:32 14:32 16:00 WBC 10.1 RBC 4.82 Hgb 15.0 Hct 45.8 MCV 95.0 H MCH 31.1 H MCHC 32.8 RDW 13.4 Plt Count 275 MPV 9.3 Neut # (Auto) 5.3 Lymph # (Auto) 3.6 H [place] # (Auto) 0.8 Eos # (Auto) 0.3 Baso # (Auto) 0.1 Absolute Nucleated RBC 0.00 Nucleated RBC % 0.0 Sodium 136 Potassium 3.9 Chloride 101 Carbon Dioxide 29 Anion Gap 6.0 BUN 13 Creatinine 0.7 Estimated GFR (MDRD) 111 Glucose 176 H Calcium 9.0 Total Bilirubin 0.6 AST 27 ALT 75 H Alkaline Phosphatase 87 Total Protein 6.8 Albumin 4.0 Globulin 2.8 Albumin/Globulin Ratio 1.4 Lipase 51 Urine Color YELLOW Urine Clarity CLEAR Urine pH 6.0 Ur Specific [place] 1.010 Urine Protein NEGATIVE Urine Glucose (UA) NEGATIVE Urine Ketones NEGATIVE Urine Occult Blood NEGATIVE Urine Nitrite NEGATIVE Urine Bilirubin NEGATIVE Urine Urobilinogen 0.2 (NORMAL) Ur Leukocyte Esterase NEGATIVE Ur Microscopic Review NOT INDICATED Urine Culture Comments NOT INDICATED PD Medical Decision Making - ED course ED course: This is a 72-year-old gentleman who presents with a plethora of complaints, confusion, back pain, right upper quadrant swelling, pedal edema. All of these are chronic with the exception of the right upper quadrant swelling and the confusion is progressive. He recently started codeine and gabapentin for his chronic cough, he is also a heavy daily marijuana user. We discussed that potentially his marijuana use might be contributing to his chronic cough but he does not believe that is the case. His gabapentin may be contributing to the confusion and he will stop that. He also recently stopped "POTS and POTS of coffee" daily cold turkey and that may be contributing to some of his symptoms as well. Thorough work-up was done without pertinent positive serious findings. Departure - Departure Disposition: 01 Home, Self Care Clinical Impression: Right upper quadrant abdominal swelling, Chronic cough, Confusion, Polypharmacy Condition: Good Record reviewed to determine appropriate education?: Yes Comments: As discussed, there is really no evidence of active serious liver disease, your ALT was mildly elevated but the remainder of your liver markers were normal as were the rest of your labs. The CT of the abdomen pelvis and chest really did not show anything concerning, degenerative changes in the back. Given recent events I think your symptoms are multifactorial. Things I would try: Reinstitute caffeine as you quit cold turkey. Stop the gabapentin as that may be contributing to your confusion. I know you do not feel that the cannabis is related to your confusion, but I doubt it is helpful, deserves consideration. I will contact LIONEL Sylvester regarding home health. Call your doctor to arrange a follow-up appointment, make the next available appointment. In the interim, return anytime if worse or if new symptoms develop.
[2022-09-02 15:01] LABS: ALBUMIN/GLOBULIN RATIO 1.4 (1.0-2.2); BILIRUBIN,TOTAL 0.6 mg/dL (0.2-1.0); CREATININE 0.7 mg/dL (0.6-1.2); POTASSIUM 3.9 mmol/L (3.5-5.0); TOTAL PROTEIN 6.8 g/dL (6.7-8.2)
[2022-09-02] MEDS ORDERED: iohexoL-300 100 ML VIAL ONE (15:07)
[2022-09-02] MEDS ORDERED: iohexoL-300 100 ML VIAL IVP ONE (15:49)
[2022-09-02 16:09] LABS: BILIRUBIN,URINE NEGATIVE (NEGATIVE); GLUCOSE, URINE (UA) NEGATIVE (NEGATIVE); KETONES,URINE (UA) NEGATIVE (NEGATIVE); LEUKOCYTE ESTERASE, URINE NEGATIVE (NEGATIVE); NITRITE,URINE NEGATIVE (NEGATIVE); OCCULT BLOOD,URINE NEGATIVE (NEGATIVE); PROTEIN,URINE NEGATIVE (NEGATIVE); UROBILINOGEN,URINE 0.2 (NORMAL) E.U./dL (NORMAL)
[2022-09-02 16:10] LABS: CLARITY,URINE CLEAR (CLEAR)
--- NOTE | 2022-09-02 16:14 | CT Report ---
PROCEDURE: CT abdomen pelvis with contrast INDICATIONS: IV only, RUQ swelling CONTRAST: 100mL [id number] TECHNIQUE: After the administration of contrast, 5 mm thick sections acquired from the diaphragms to the sym physis. 5 mm thick coronal and sagittal reformats were acquired. For radiation dose reduction, the following was used: automated exposure control, adjustment of mA and/or kV according to patient size . COMPARISON: 03/16/2017 FINDINGS: Image quality: Excellent. ABDOMEN: Lung bases: Lung bases are clear. Heart size is normal. Solid organs: Diffusely decreased hepatic attenuation. Gallbladder surgically absent Biliary system is non dilated. Pancreas enhances normally. No adrenal nodules. Kidneys demonstrate normal size a nd enhancement, without hydronephrosis. Peritoneum and bowel: Bowel loops demonstrate normal wall thickness and caliber. No free fluid or a ir. Multiple diverticula arise from the sigmoid colon without evidence of diverticulitis Nodes and vessels: No retroperitoneal or mesenteric adenopathy by size criteria. Aorta and inferior vena cava are normal in size. Miscellaneous: Small umbilical ventral hernia noted, unchanged PELVIS: Genitourinary: Bladder wall thickness is normal. Miscellaneous: No inguinal hernias or adenopathy. Bones: No suspicious bony lesions. No vertebral body compression fractures. Lower lumbar spine dec ompressive surgery and instrumentation remains unchanged IMPRESSION: 1. No acute CT findings in the abdomen or pelvis. Cholecystectomy. 2. Chronic degenerative findings in detail above Reviewed by: Jac Han MD on 09/02/2022 3:13 PM [place] Approved by: Jac Han MD on 09/02/2022 3:13 PM [place] Station ID: [id number]
--- NOTE | 2022-09-02 16:26 | CT Report ---
PROCEDURE: CT chest angiogram with contrast INDICATIONS: dyspnea, pe protocol CONTRAST: 100mL [id number] TECHNIQUE: After the administration of intravenous contrast, 2 mm axial images were acquired from th e pulmonary apices to the posterior costophrenic angles during the arterial phase. In addition, 1 mm lung kernel and 5 mm soft tissue kernel reconstructions were performed. 3-dimensional coronal oblique maximum intensity projection (MIP) reformats, 8 mm axial MIP, and 5 mm coronal and sagittal MPR refo rmats were then performed through the thorax. For radiation dose reduction, the following was used: a utomated exposure control, adjustment of mA and/or kV according to patient size. COMPARISON: None FINDINGS: Image quality: Excellent. Pulmonary arteries: Pulmonary arteries are normal in size, and demonstrate no intraluminal filling d efects to suggest central pulmonary embolism. Dense coronary artery vascular calcification present. Lungs and pleura: Lungs are clear other than left lower lobe calcified granuloma. No pleural effusi ons or pneumothorax. Central and peripheral airways are patent. Mediastinum: Heart size is normal, without pericardial effusion. No mediastinal or hilar adenopathy . Thoracic aorta is normal in caliber and enhancement. Esophagus is normal in caliber, without hiat al hernia. Bones and chest wall: No suspicious bony lesions. Ribs and thoracic spine appear intact throughout. No axillary or supraclavicular adenopathy. The thyroid is normal in size and there are no incident al findings. Abdomen: Visualized upper abdominal solid organs appear normal in the early arterial phase of enhanc ement. IMPRESSION: 1. No evidence of pulmonary embolism, aortic dissection or aneurysm. 2. Incidental left lower lobe calcified granuloma Reviewed by: Jac Han MD on 09/02/2022 3:25 PM AKST Approved by: Jac Han MD on 09/02/2022 3:25 PM AKST Station ID: [id number]
[2022-09-02 16:39] VITALS: BP 148/79
== END 2022-09-02 17:08 | disposition home or self-care (01) ==
LOC: ED 14:08
DX: R19.01 Right upper quadrant abdominal swelling, mass and lump (principal); R05.3 Chronic cough; R41.0 Disorientation, unspecified; F31.9 Bipolar disorder, unspecified; Z99.3 Dependence on wheelchair; Z86.73 Personal history of transient ischemic attack (TIA), and cerebral infarction without residual deficits; M54.2 Cervicalgia; M54.9 Dorsalgia, unspecified; G89.29 Other chronic pain
CPT/HCPCS: 36415; 71275; 74177; 80053; 81003; 83690; 85025; 99284; A9270; Q9967; 81001; 87086

== ENCOUNTER 2022-09-17 07:11 | Outpatient (CLI) | payer MEDICARE, BC ==
[2022-09-17 07:36] LABS: BASOPHILS # (AUTO) 0.1 10^3/uL (0.0-0.1); BASOPHILS % (AUTO) 0.6 %; EOSINOPHILS # (AUTO) 0.3 10^3/uL (0.0-0.7); EOSINOPHILS % (AUTO) 3.4 %; HCT - HEMATOCRIT 43.8 % (42.0-52.0); HGB - HEMOGLOBIN 14.7 g/dL (14.0-18.0); LYMPHOCYTES # (AUTO) 3.7 10^3/uL (1.5-3.5); LYMPHOCYTES % (AUTO) 37.9 %; MEAN CORPUSCULAR HEMOGLOBIN 31.5 pg (27.0-31.0); MEAN CORPUSCULAR HGB CONC 33.6 g/dL (32.0-36.0); MEAN PLATELET VOLUME 9.3 fL (7.4-11.4); MONOCYTES # (AUTO) 0.8 10^3/uL (0.0-1.0); MONOCYTES % (AUTO) 7.6 %; NEUTROPHILS # (AUTO) 4.9 10^3/uL (1.5-6.6); PLT - PLATELET COUNT 277 10^3/uL (130-450); RED BLOOD COUNT 4.66 10^6/uL (4.70-6.10); RED CELL DISTRIBUTION WIDTH 13.2 % (12.0-15.0); WHITE BLOOD COUNT 9.8 x10^3/uL (4.8-10.8)
[2022-09-17 07:44] LABS: ALBUMIN 3.8 g/dL (3.2-5.5); ALBUMIN/GLOBULIN RATIO 1.5 (1.0-2.2); ALKALINE PHOSPHATASE 77 IU/L (42-121); ALT ALANINE AMINOTRANSFERASE 63 IU/L (10-60); AST ASPARTATE AMINOTRANSFERASE 46 IU/L (10-42); BILIRUBIN,TOTAL 0.6 mg/dL (0.2-1.0); BUN - BLOOD UREA NITROGEN 11 mg/dL (6-20); CALCIUM 9.1 mg/dL (8.5-10.3); CARBON DIOXIDE - CO2 29 mmol/L (21-32); CHLORIDE 100 mmol/L (101-111); CHOL/HDL RATIO 4.4 (<5.0); CHOLESTEROL 158 mg/dL; CREATININE 0.7 mg/dL (0.6-1.2); GFR - MDRD 111 (>89); GLUCOSE 121 mg/dL (70-100); HDL CHOLESTEROL 36 mg/dL; LDL CHOLESTEROL,CALCULATED 98 mg/dL; LDL/HDL RATIO 2.7 (<3.6); POTASSIUM 4.2 mmol/L (3.5-5.0); SODIUM 138 mmol/L (135-145); TOTAL PROTEIN 6.4 g/dL (6.7-8.2); TRIGLYCERIDES 118 mg/dL; VLDL CHOLESTEROL 24 mg/dL
== END 2022-09-17 07:12 | disposition home or self-care (01) ==
LOC: LAB 07:11
PROVIDERS: ATTEND Internal Medicine Cardiovascular Disease
DX: I10 Essential (primary) hypertension (principal); E78.2 Mixed hyperlipidemia; I48.0 Paroxysmal atrial fibrillation
CPT/HCPCS: 36415; 80053; 80061; 83721; 85025

== ENCOUNTER 2022-10-01 14:25 | Outpatient (CLI) | payer MEDICARE, BC ==
--- NOTE | 2022-10-01 15:18 | SLEEP CARE CONSULTATION ---
Information from patient questionnaire entered by Dania Walters. I have reviewed and concur with the information entered by Dania Walters. This document represents the service I personally performed and the decisions made by me, Trena Campos ARNP. History of Present Illness Service Date and Time: 10/01/2022 1425 Previous diagnosis: Very Severe, Obstructive Sleep Apnea-Hypopnea Syndrome AHI: 63.2 (in 2018) Reason for follow up: annual (LAST SEEN ) Equipment type: CPAP (Sergey Dreamstation s/u 05/04/2018) Equipment obtained from: Other ([facility]; getting supplies) Mask style: Nasal Mask brand: Respironics (Dreamwear) Backup mask available: No (needs supplies) Last cushion change: February 2022 Prior sleep studies: Yes Year and Where: 2017 Spontly Type of Sleep Study: Polysomnography HPI additional information: KEMI ANDRADE was diagnosed to have very severe, AHI 63.2, obstructive sleep apnea-hypopnea syndrome and returned today for CPAP therapy annual follow-up. Sleep Study - Results Type of Sleep Study: Polysomnography Prior sleep studies: Yes Year and Where: 2017 Spontly CPAP Compliance Data - Data Reviewed with Patient Average duration of nightly device use: 7 HRS 8 MIN 23 SEC Compliance rate %: 88.9 (03/10/22-09/05/22; 93.3% last 30 days) Current pressure setting (cmH2O): 8-11 Average residual AHI: 3 Central apnea: 0.3 Obstructive apnea: 0.9 Subjective Missed days of use due to: reports: illness (cough that is worse when using CPAP) Patient concerns: reports: other (severe cough when using CPAP). denies: aerophagia, mask discomfort, air blowing in eyes, mask leak noise, condensation in mask/hose, nasal congestion, dry mouth, nose, throat, epistaxis Observed to snore while using device: No Current pressure setting perceived as: comfortable On therapy, patient: reports: sleeping better, awakening more refreshed, being more awake and alert during the day, more rested overall. denies: drowsiness while driving Initial [place] Sleepiness Scale score: 7 Current [place] Sleepiness Scale score: 9 (10/01/22) Allergies and Home Medications Drug allergies reviewed: Yes (NKDA) Home medication list reviewed: Yes (no changes) Review of Systems Review of systems same as previous: No (corpectomy 10/08/21; Post Nasal Drip) Physical Exam Vital signs obtained and entered by: DANIA Oneill MA Blood Pressure: 122/62 (LEFT ARM ) Cuff size: regular Heart Rate: 60 O2 Saturation: 95 Height: 5 ft 9 in Weight: 268 lb 12.8 oz Body Mass Index: 39.6 BMI Classification: Obese Impression and Plan 1. Obstructive Sleep Apnea-Hypopnea Syndrome, very severe, with good treatment compliance and good apnea control. On CPAP therapy, the patient has better sleep quality and is more rested overall. I informed the patient that [employer] has a recall on several devices like the patients machine. Patient was encouraged to register their device online with [employer] for the recall to see if their device is affected. If their device is affected they should start a claim. Patient has experienced an upper airway irritation that causes a cough that is very severe. He has been struggling with this severe cough and been hospitalized once because of being so ill with it. I did advise patient to look through device to see if there is any black debris and that he should not use his machine if he sees any in device. He states he will not use his machine until he can get it replaced. He does not have an older device to use in the meantime. Since the patients current machine is almost 5 years old, the patient would like to try to update their device with a device that is not on the recall. He states he has a real hard time going without his CPAP. I will put together a prescription to replace his device and send it urgently. Patient voiced understanding and agreement with plan. Patient's apnea severity and rationale for treatment to reduce apnea, improve sleep quality and reduce cardiovascular and cerebrovascular events was reviewed. I also reviewed the benefit of consistent device use of CPAP for hypertension, cerebrovascular disease and mood disorder (PTSD). 2. Obesity, unspecified. Currently patients BMI is 39.6. Obesity increases the risk of apnea, CPAP pressure requirements and overall health risks especially cardiovascular and diabetes. Thus patient is advised to lose weight. * Continue auto CPAP pressure at 8-11 cmH2O * Update machine on recall, having upper airway symptoms * Update supplies * Notify me if snoring with mask or feeling that the pressure is too much or too little * Attempt to lose weight * Call this office if any problems using CPAP * Return for follow up one month after obtaining new device, or sooner if concerns arise Counseling Topics: Spare mask, Weight loss health impact Visit Type: In Office Time Spent with Patient (minutes): 28 Provider Statement: I spent 100% of the Face to Face Visit with the patient with greater than 50% spent counseling the patient and coordination of care.
[2022-10-01 15:24] VITALS: BP 122/62
== END 2022-10-01 14:26 | disposition home or self-care (01) ==
LOC: SC 14:25
PROVIDERS: ATTEND Nurse Practitioner Family
DX: G47.33 Obstructive sleep apnea (adult) (pediatric) (principal); E66.9 Obesity, unspecified; Z68.39 Body mass index [BMI] 39.0-39.9, adult
CPT/HCPCS: 99213; G0463; 99212

== ENCOUNTER 2022-12-16 06:52 | Outpatient (CLI) | payer MEDICARE, BC ==
[2022-12-16 07:33] LABS: ALBUMIN 4.4 g/dL (3.2-5.5); ALBUMIN/GLOBULIN RATIO 1.8 (1.0-2.2); ALKALINE PHOSPHATASE 66 IU/L (42-121); ALT ALANINE AMINOTRANSFERASE 40 IU/L (10-60); AST ASPARTATE AMINOTRANSFERASE 23 IU/L (10-42); BASOPHILS # (AUTO) 0.1 10^3/uL (0.0-0.1); BASOPHILS % (AUTO) 0.5 %; BILIRUBIN,TOTAL 0.7 mg/dL (0.2-1.0); BUN - BLOOD UREA NITROGEN 13 mg/dL (6-20); CALCIUM 9.3 mg/dL (8.5-10.3); CARBON DIOXIDE - CO2 29 mmol/L (21-32); CHLORIDE 103 mmol/L (101-111); CHOL/HDL RATIO 7.8 (<5.0); CHOLESTEROL 289 mg/dL; CREATININE 0.9 mg/dL (0.6-1.2); EOSINOPHILS # (AUTO) 0.2 10^3/uL (0.0-0.7); EOSINOPHILS % (AUTO) 2.5 %; GFR - MDRD 83 (>89); GLUCOSE 147 mg/dL (70-100); HCT - HEMATOCRIT 48.4 % (42.0-52.0); HDL CHOLESTEROL 37 mg/dL; HGB - HEMOGLOBIN 16.7 g/dL (14.0-18.0); LDL CHOLESTEROL,CALCULATED 202 mg/dL; LDL/HDL RATIO 5.5 (<3.6); LYMPHOCYTES # (AUTO) 3.4 10^3/uL (1.5-3.5); LYMPHOCYTES % (AUTO) 34.7 %; MEAN CORPUSCULAR HEMOGLOBIN 32.2 pg (27.0-31.0); MEAN CORPUSCULAR HGB CONC 34.5 g/dL (32.0-36.0); MEAN CORPUSCULAR VOLUME 93.4 fL (80.0-94.0); MEAN PLATELET VOLUME 9.6 fL (7.4-11.4); MONOCYTES # (AUTO) 0.7 10^3/uL (0.0-1.0); MONOCYTES % (AUTO) 7.4 %; NEUTROPHILS # (AUTO) 5.3 10^3/uL (1.5-6.6); NEUTROPHILS % (AUTO) 54.6 %; PLT - PLATELET COUNT 269 10^3/uL (130-450); RED BLOOD COUNT 5.18 10^6/uL (4.70-6.10); RED CELL DISTRIBUTION WIDTH 12.6 % (12.0-15.0); SODIUM 140 mmol/L (135-145); TOTAL PROTEIN 6.8 g/dL (6.7-8.2); TRIGLYCERIDES 249 mg/dL; VLDL CHOLESTEROL 50 mg/dL; WHITE BLOOD COUNT 9.7 x10^3/uL (4.8-10.8)
[2022-12-16 07:41] LABS: THYROID STIMULATING HORMONE 3.13 uIU/mL (0.34-5.60)
[2022-12-16 10:11] LABS: ESTIMATED AVERAGE GLUCOSE 123 mg/dL (70-100); HEMOGLOBIN A1c% 5.9 % (4.27-6.07)
== END 2022-12-16 06:53 | disposition home or self-care (01) ==
LOC: LAB 06:52
PROVIDERS: ATTEND Specialist
DX: E78.2 Mixed hyperlipidemia (principal); R73.9 Hyperglycemia, unspecified; R94.6 Abnormal results of thyroid function studies
CPT/HCPCS: 36415; 80053; 80061; 83036; 83721; 84443; 85025

== ENCOUNTER 2022-12-26 10:17 | Emergency (ER) | payer MEDICARE, BC ==
[2022-12-26 10:49] LABS: BASOPHILS % (AUTO) 0.4 %; EOSINOPHILS # (AUTO) 0.1 10^3/uL (0.0-0.7); EOSINOPHILS % (AUTO) 1.5 %; HCT - HEMATOCRIT 48.6 % (42.0-52.0); HGB - HEMOGLOBIN 16.5 g/dL (14.0-18.0); LYMPHOCYTES # (AUTO) 2.2 10^3/uL (1.5-3.5); LYMPHOCYTES % (AUTO) 23.8 %; MEAN CORPUSCULAR HEMOGLOBIN 31.7 pg (27.0-31.0); MEAN CORPUSCULAR VOLUME 93.3 fL (80.0-94.0); MEAN PLATELET VOLUME 9.5 fL (7.4-11.4); MONOCYTES # (AUTO) 0.5 10^3/uL (0.0-1.0); MONOCYTES % (AUTO) 5.5 %; NEUTROPHILS # (AUTO) 6.5 10^3/uL (1.5-6.6); NEUTROPHILS % (AUTO) 68.4 %; PLT - PLATELET COUNT 256 10^3/uL (130-450); RED BLOOD COUNT 5.21 10^6/uL (4.70-6.10); WHITE BLOOD COUNT 9.4 x10^3/uL (4.8-10.8)
[2022-12-26] MEDS ORDERED: HYDROmorphone 1 MG/ML CARPUJECT IVP STA (10:51)
[2022-12-26] MEDS ORDERED: ONDANSETRON 4 MG/2 ML VIAL IVP STA (10:51)
--- NOTE | 2022-12-26 10:52 | ED Physician Documentation ---
History of Present Illness - Stated complaint Stated Complaint: HIGH BP/NAUSEA/HEAD PX - Chief complaint Chief Complaint: Cardiac - History obtained from History obtained from: Patient - Additonal information Additional information: 72-year-old gentleman with chronic back pain under pain management. He is in a power chair and on ambulatory because of that but transfers on his own. He fell out of his power chair yesterday and did hit his head albeit mildly he developed a severe headache in the brand representative hours this morning which is quite atypical for him and it was associated with vomiting. He also describes several months worth of productive cough which he thinks may be related to a recalled CPAP machine, he has a new one now. After getting sick this morning he took his blood pressure several times at home and it was in the range of 200/100 which worried him. PD PAST MEDICAL HISTORY - Past Medical History Cardiovascular: Atrial fibrillation Respiratory: Shortness of breath Neuro: Headaches, Migraines Endocrine/Autoimmune: None GI: GERD, Other : None HEENT: None Psych: None Musculoskeletal: None Derm: Eczema - Past Surgical History Past Surgical History: Yes General: Cholecystectomy, Appendectomy Ortho: Spine surgery Cardiovascular: Other - Present Medications Home Medications: Ambulatory Orders Medication Instructions Recorded Confirmed Venlafaxine HCl [Venlafaxine HCl 150 mg PO DAILY 11/19/17 05/07/21 ER] lamoTRIgine [LaMICtal] 100 mg PO DAILY 11/19/17 05/07/21 Apixaban [Eliquis] 10 mg PO BID 12/12/17 05/07/21 lisinopriL [Prinivil] 5 mg PO DAILY 12/12/17 05/07/21 Ezetimibe/Simvastatin 10 mg PO DAILY 05/07/21 05/07/21 [Ezetimibe-Simvastatin 10-10 mg] Rosuvastatin Calcium [Crestor] 10 mg PO DAILY 05/07/21 05/07/21 bisoproloL fumarate [Bisoprolol 5 mg PO DAILY 05/07/21 05/07/21 Fumarate] - Allergies Allergies/Adverse Reactions: Allergies Allergy/AdvReac Type Severity Reaction Status Date / Time No Known Drug Allergies Allergy Verified 12/26/22 10:31 - Social History Does the pt smoke?: No Smoking Status: Never smoker Does the pt drink ETOH?: Yes Does the pt have substance abuse?: No - Immunizations Immunizations are current?: Yes Immunizations: TDAP >10years/unknown - POLST Patient has POLST: No PD ED PE NORMAL - Vitals Vital signs reviewed: Yes - General General: Alert and oriented X 3, Other (Retching and vomiting, appears uncomfortable) - HEENT HEENT: PERRL, EOMI - Neck Neck: Supple, no meningeal sign, No bony TTP - Cardiac Cardiac: RRR, No murmur - Respiratory Respiratory: No respiratory distress, Other (Rhonchorous throughout) - Abdomen Abdomen: Non tender - Derm Derm: Normal color, Warm and dry - Extremities Extremities: No edema, No calf tenderness / cord - Neuro Neuro: Alert and oriented X 3, deep fat fry cook 2-12 intact, No motor deficit, No sensory deficit, Normal speech Eye Opening: Spontaneous Motor: Obeys Commands Verbal: Oriented GCS Score: 15 Results - Vitals Vitals: Vital Signs - 24 hr 12/26/22 12/26/22 12/26/22 10:26 11:37 11:56 Temperature 98.1 C H 36 C L Heart Rate 78 57 L Respiratory 40 H 26 H Rate Blood Pressure 153/71 H 145/85 H O2 Saturation 95 97 12/26/22 12/26/22 12:18 12:30 Temperature 36.3 C L Heart Rate 60 55 L Respiratory 20 20 Rate Blood Pressure 141/73 H 158/73 H O2 Saturation 95 96 Oxygen O2 Source Room air - EKG (time done) 1038 EKG releavant findings:: EKG personally interpreted by author of this note. Relevant findings are: Rate: Rate (enter#) (59) Rhythm: NSR Harvey: LAD Intervals: Normal MT, Other (IVCD ) QRS: Normal Ischemia: Normal ST segments - Labs Labs: Laboratory Tests 12/26/22 12/26/22 12/26/22 10:42 10:42 10:42 WBC 9.4 RBC 5.21 Hgb 16.5 Hct 48.6 MCV 93.3 MCH 31.7 H MCHC 34.0 RDW 13.0 Plt Count 256 MPV 9.5 Neut # (Auto) 6.5 Lymph # (Auto) 2.2 [place] # (Auto) 0.5 Eos # (Auto) 0.1 Baso # (Auto) 0.0 Absolute Nucleated RBC 0.00 Nucleated RBC % 0.0 Sodium 140 Potassium 3.7 Chloride 105 Carbon Dioxide 26 Anion Gap 9.0 BUN 12 Creatinine 0.8 Estimated GFR (MDRD) 96 Glucose 211 H Calcium 9.4 Total Bilirubin 0.8 AST 22 ALT 34 Alkaline Phosphatase 58 Troponin I High Sens 7.0 Total Protein 6.5 L Albumin 4.1 Globulin 2.4 Albumin/Globulin Ratio 1.7 Lipase 25 - Rads (name of study) CT Head Relevant Findings:: Final report received, EMP independent interpretation of test 1v cxr Relevant Findings:: Final report received, EMP independent interpretation of test PD Medical Decision Making - ED course ED course: 72 yo male with headache last night and vomiting. No meningismus. After the administration of IV fluids, Dilaudid and Zofran he felt much better. No evidence of subarachnoid hemorrhage on CT. There may be some element of narcotic withdrawal as with the vomiting he did not keep down his chronic narcotics this morning. He was able to pass a p.o. challenge here and felt back to his baseline level of pain. Departure - Departure Disposition: 01 Home, Self Care Clinical Impression: Headache, Vomiting Condition: Good Instructions: ED Cephalgia Unspecified, ED Nausea Vomiting Comments: CAT scan and labs were unremarkable with the exception of a blood sugar of 2 oh 11. Continue your usual medications at home, follow-up with your primary care physician, next available appointment. Return if worse. Discharge Date/Time: 12/26/22 12:58
[2022-12-26 11:06] LABS: ALBUMIN 4.1 g/dL (3.2-5.5); ALBUMIN/GLOBULIN RATIO 1.7 (1.0-2.2); BILIRUBIN,TOTAL 0.8 mg/dL (0.2-1.0); CALCIUM 9.4 mg/dL (8.5-10.3); CREATININE 0.8 mg/dL (0.6-1.2); POTASSIUM 3.7 mmol/L (3.5-5.0); TOTAL PROTEIN 6.5 g/dL (6.7-8.2)
--- NOTE | 2022-12-26 11:43 | CT Report ---
PROCEDURE: CT brain without contrast INDICATIONS: headache TECHNIQUE: Noncontrast 4.5 mm thick angled axial sections acquired from the foramen magnum to the vertex. For r adiation dose reduction, the following was used: automated exposure control, adjustment of mA and/or kV according to patient size. COMPARISON: 05/07/2021 FINDINGS: Image quality: Excellent. CSF spaces: Basal cisterns are patent. No extra-axial fluid collections. Ventricles are normal in size and shape. Brain: No midline shift. No intracranial masses or hemorrhage. Last-white matter interface is norm al. Atrophy and chronic ischemic change. Skull and face: Calvarium and visualized facial bones are intact, without suspicious lesions. Sinuses: Visualized sinuses and mastoids are clear. IMPRESSION: Atrophy and chronic ischemic change without intracranial hemorrhage or mass effect Reviewed by: Jac Han MD on 12/26/2022 10:42 AM TYLER Approved by: Jac Han MD on 12/26/2022 10:42 AM TYLER Station ID: [id number]
[2022-12-26] MEDS ORDERED: HYDROcod/ACETAM 5/325 MG TABLET PO STA (12:14)
[2022-12-26 12:46] VITALS: BP 158/73
--- NOTE | 2022-12-26 13:03 | XRAY Report ---
PROCEDURE: Chest 1 View X-Ray INDICATIONS: Chest pain TECHNIQUE: One view of the chest was acquired. COMPARISON: None. FINDINGS: Surgical changes and devices: None. Lungs and pleura: No pleural effusions or pneumothorax. Lungs are clear. Mediastinum: Heart size is enlarged. Moderate vascular congestion noted. No pleural effusion Bones and chest wall: No suspicious bony lesions. Overlying soft tissues appear unremarkable. IMPRESSION: Cardiomegaly and moderate vascular congestion Reviewed by: Jac Han MD on 12/26/2022 12:02 PM AKLIUDMILA Approved by: Jac Han MD on 12/26/2022 12:02 PM AKDT Station ID: [id number]
== END 2022-12-26 12:58 | disposition home or self-care (01) ==
LOC: ED 10:17
DX: R51.9 Headache, unspecified (principal); R11.10 Vomiting, unspecified
CPT/HCPCS: 36415; 70450; 71045; 80053; 83690; 84484; 85025; 93005; 96374; 99284; A9270; J1170

== ENCOUNTER 2023-02-25 01:33 | Outpatient (CLI) | payer MEDICARE, BC | END 2023-02-25 23:59 | disposition critical access hospital (66) | LOC: EMS 01:33 | DX: R10.31 Right lower quadrant pain (principal); R10.32 Left lower quadrant pain; R14.0 Abdominal distension (gaseous); R11.0 Nausea; R19.8 Other specified symptoms and signs involving the digestive system and abdomen | CPT/HCPCS: A0425; A0427 ==

== ENCOUNTER 2023-02-25 01:58 | Emergency (ER) | payer MEDICARE, BC ==
--- NOTE | 2023-02-25 01:58 | ED Physician Documentation ---
PD HPI ABD PAIN - Stated complaint Stated Complaint: ABD PAIN - History obtained from History obtained from: Patient, EMS - Additional information Additional information: Brought in by ambulance. HPI from patient as well as from EMS. Patient complains of bilateral lower quadrant abdominal pain, onset several hours ago without specific inciting event. Pain was of gradual onset but has been constant and steadily worsening, becoming associated with nausea and vomiting. Patient has not had a bowel movement in a few days. Patient feels abdominal distention. Patient says the symptoms feel very similar to symptoms he had associated with a small bowel obstruction which was many years ago. Patient was given 4 mg of Zofran on route by EMS. Review of Systems Constitutional: denies: Fever, Chills, Sweats Cardiac: reports: Reviewed and negative Respiratory: reports: Reviewed and negative GI: reports: Abdominal Pain, Abdominal Swelling, Nausea, Vomiting, Constipation. denies: Diarrhea, Hematemesis, Bloody / black stool : denies: Dysuria, Frequency Skin: reports: Reviewed and negative Musculoskeletal: reports: Reviewed and negative PD PAST MEDICAL HISTORY - Past Medical History Past Medical History: Yes Psych: Bipolar disorder - Past Surgical History General: Cholecystectomy, Other (hernia repair) - Present Medications Home Medications: Ambulatory Orders Medication Instructions Recorded Confirmed Venlafaxine HCl [Venlafaxine HCl 150 mg PO DAILY 11/19/17 05/07/21 ER] lamoTRIgine [LaMICtal] 100 mg PO DAILY 11/19/17 05/07/21 Apixaban [Eliquis] 10 mg PO BID 12/12/17 05/07/21 lisinopriL [Prinivil] 5 mg PO DAILY 12/12/17 05/07/21 Ezetimibe/Simvastatin 10 mg PO DAILY 05/07/21 05/07/21 [Ezetimibe-Simvastatin 10-10 mg] Rosuvastatin Calcium [Crestor] 10 mg PO DAILY 05/07/21 05/07/21 bisoproloL fumarate [Bisoprolol 5 mg PO DAILY 05/07/21 05/07/21 Fumarate] LORazepam [Lorazepam] 1 mg PO TID PRN #14 tab 02/25/23 Ondansetron Odt [Zofran] 4 - 8 mg TL Q6H PRN #20 tablet 02/25/23 - Allergies Allergies/Adverse Reactions: Allergies Allergy/AdvReac Type Severity Reaction Status Date / Time No Known Drug Allergies Allergy Verified 12/26/22 10:31 PD ED PE NORMAL - Vitals Vital signs reviewed: Yes - General General: Alert and oriented X 3, Well developed/nourished, Other (appears to be in obvious painful distress) - HEENT HEENT: Moist mucous membranes - Cardiac Cardiac: RRR, No murmur - Respiratory Respiratory: No respiratory distress, Clear bilaterally - Abdomen Abdomen: Soft, Non tender - Derm Derm: Normal color, Warm and dry - Extremities Extremities: No edema PD ED PE EXPANDED - Abdomen Abdomen: Decreased BS, Distended Results - Vitals Vitals: Vital Signs - 24 hr 02/25/23 02/25/23 02/25/23 02:06 04:10 06:00 Temperature 36.3 C L Heart Rate 56 L 52 L 73 Respiratory 17 16 18 Rate Blood Pressure 140/75 H 134/50 H 135/65 H O2 Saturation 91 L 97 95 02/25/23 07:06 Temperature Heart Rate 55 L Respiratory 14 Rate Blood Pressure 123/61 O2 Saturation 96 Oxygen O2 Source Room air - Labs Labs: Laboratory Tests 02/25/23 02/25/23 02/25/23 02:15 02:15 03:13 WBC 10.0 RBC 4.80 Hgb 15.5 Hct 44.8 MCV 93.3 MCH 32.3 H MCHC 34.6 RDW 13.0 Plt Count 255 MPV 9.2 Neut # (Auto) 6.8 H Lymph # (Auto) 2.5 [place] # (Auto) 0.2 Eos # (Auto) 0.3 Baso # (Auto) 0.1 Absolute Nucleated RBC 0.00 Nucleated RBC % 0.0 Sodium 137 Potassium 3.7 Chloride 100 L Carbon Dioxide 27 Anion Gap 10.0 BUN 19 Creatinine 0.9 Estimated GFR (MDRD) 83 L Glucose 150 H Calcium 9.5 Total Bilirubin 0.6 AST 22 ALT 42 Alkaline Phosphatase 67 Total Protein 6.6 L Albumin 4.0 Globulin 2.6 Albumin/Globulin Ratio 1.5 Lipase 23 Urine Color YELLOW Urine Clarity CLEAR Urine pH 6.0 Ur Specific [place] 1.010 Urine Protein NEGATIVE Urine Glucose (UA) NEGATIVE Urine Ketones NEGATIVE Urine Occult Blood NEGATIVE Urine Nitrite NEGATIVE Urine Bilirubin NEGATIVE Urine Urobilinogen 1 (NORMAL) Ur Leukocyte Esterase NEGATIVE Ur Microscopic Review NOT INDICATED Urine Culture Comments NOT INDICATED - Rads (name of study) CT A/P with IV contrast Relevant Findings:: Prelim report reviewed, See rad report PD Medical Decision Making - ED course Complexity details: reviewed results, re-evaluated patient, considered differential, d/w patient ED course: There are no concerning or diagnostic findings on tonermias's blood tests (CBC, ER abdominal panel). Urinalysis is normal. CT of the abdomen and pelvis is performed with intravenous contrast. This does not provide any confident etiology for patient's symptoms. Per the radiologist's impression, "diverticulosis coli left hemicolon. Subtle pericolonic fat stranding descending colon possible subtle acute uncomplicated diverticulitis correlate clinically. Terminal ileum is normal. Appendix is not identified." Note that the patient has just finished a 10-day course of Augmentin for upper respiratory symptoms. I reviewed the results of neli's tests with the patient. Early in his ER stay, he was given 6 mg IV morphine, and reported some improvement with his pain after this intervention. However, as we were discussing the test results, he had recurrence of the pain which she says is more severe than when it first arrived. He is thus given 1 mg of Dilaudid IV. I also ordered 8 mg of Zofran for nausea that then developed to vomiting while we were discussing the results, as well as 1 L of normal saline IV. Patient subsequently had a large bowel movement and reported significant improvement in his pain with this. He also reported significant improvement with the Dilaudid and lorazepam, and significant improvement in the nausea with the 8 mg of IV Zofran. At this point, patient and patient spouse are both asking for discharge home, as they are comfortable with being discharged. Having reviewed the results with the patient, they understand that there is no confident etiology/cause regarding his symptoms. I explained to the patient why I have doubts that a subtle and uncomplicated case of diverticulitis could cause this much pain and nausea/vomiting. However, even if this is the case, the literature discourages use of antibiotics for simple/uncomplicated diverticulitis in the outpatient setting. I electronically submitted prescriptions for Zofran as well as lorazepam to his pharmacy of choice. Return precautions are reviewed. I encouraged him to contact his primary care provider to arrange for next available appointment for reevaluation. Departure - Departure Disposition: 01 Home, Self Care Clinical Impression: Abdominal pain Qualifiers: Abdominal location: lower abdomen, unspecified Qualified Code(s): R10.30 - Lower abdominal pain, unspecified Condition: Good Instructions: ED Abdominal Pain Unkn Cause Male Prescriptions: LORazepam [Lorazepam] 1 mg PO TID PRN #14 tab PRN Reason: Anxiety Ondansetron Odt [Zofran] 4 - 8 mg TL Q6H PRN #20 tablet PRN Reason: Nausea / Vomiting Comments: There were no concerning or diagnostic findings on tonight's tests. Your blood tests were unremarkable, the urinalysis was negative/normal. As we discussed, the CT scan of your abdomen pelvis did not provide any confident answer as to what is causing your abdominal pain, nausea, and vomiting. The radiologist notes some subtle inflammation of your descending colon (left side of the abdomen) that could possibly be due to diverticulitis. As we discussed, although diverticulitis can certainly cause pain, I would expect that the extent of the pain you are experiencing would have obvious (and not subtle) findings on the CT scan. Furthermore, the medical literature has been recommending against using antibiotics for simple/uncomplicated diverticulitis in most cases. Thus, I am not confident that the finding on the CT scan represents diverticulitis, but even if this is the case, a subtle/mild case of diverticulitis would not require specific treatment (such as antibiotics). In short, the cause of your pain and nausea and vomiting is not apparent at this time. I recommend that you contact your primary care provider when their office opens this morning to arrange for next available appointment for reevaluation. I am electronically submitting prescriptions to the [facility] [place] [facility] in [place] for ondansetron (antinausea medication) and lorazepam (antianxiety medication that can augment the effects of the pain medications are taking). Discharge Date/Time: 02/25/23 07:07
[2023-02-25] MEDS ORDERED: SODIUM CHLORIDE 0.9% 1,000 ML IV STA ×2 (02:06→06:37)
[2023-02-25] MEDS ORDERED: MORPHINE 2 MG/ML CARPUJECT IVP STA (02:06)
[2023-02-25 02:20] LABS: BASOPHILS # (AUTO) 0.1 10^3/uL (0.0-0.1); BASOPHILS % (AUTO) 0.5 %; EOSINOPHILS # (AUTO) 0.3 10^3/uL (0.0-0.7); EOSINOPHILS % (AUTO) 2.9 %; HCT - HEMATOCRIT 44.8 % (42.0-52.0); HGB - HEMOGLOBIN 15.5 g/dL (14.0-18.0); LYMPHOCYTES # (AUTO) 2.5 10^3/uL (1.5-3.5); LYMPHOCYTES % (AUTO) 25.4 %; MEAN CORPUSCULAR HEMOGLOBIN 32.3 pg (27.0-31.0); MEAN CORPUSCULAR HGB CONC 34.6 g/dL (32.0-36.0); MEAN CORPUSCULAR VOLUME 93.3 fL (80.0-94.0); MEAN PLATELET VOLUME 9.2 fL (7.4-11.4); MONOCYTES # (AUTO) 0.2 10^3/uL (0.0-1.0); MONOCYTES % (AUTO) 2.1 %; NEUTROPHILS # (AUTO) 6.8 10^3/uL (1.5-6.6); NEUTROPHILS % (AUTO) 68.4 %; PLT - PLATELET COUNT 255 10^3/uL (130-450)
[2023-02-25 02:33] LABS: ALBUMIN/GLOBULIN RATIO 1.5 (1.0-2.2); BILIRUBIN,TOTAL 0.6 mg/dL (0.2-1.0); CALCIUM 9.5 mg/dL (8.5-10.3); CREATININE 0.9 mg/dL (0.6-1.2); POTASSIUM 3.7 mmol/L (3.5-5.0); TOTAL PROTEIN 6.6 g/dL (6.7-8.2)
[2023-02-25] MEDS ORDERED: iohexoL-300 100 ML VIAL ONE (02:57)
[2023-02-25 03:16] LABS: BILIRUBIN,URINE NEGATIVE (NEGATIVE); GLUCOSE, URINE (UA) NEGATIVE (NEGATIVE); KETONES,URINE (UA) NEGATIVE (NEGATIVE); LEUKOCYTE ESTERASE, URINE NEGATIVE (NEGATIVE); NITRITE,URINE NEGATIVE (NEGATIVE); OCCULT BLOOD,URINE NEGATIVE (NEGATIVE); PROTEIN,URINE NEGATIVE (NEGATIVE); UROBILINOGEN,URINE 1 (NORMAL) E.U./dL (NORMAL)
[2023-02-25 03:21] LABS: CLARITY,URINE CLEAR (CLEAR)
[2023-02-25] MEDS ORDERED: HYDROmorphone 1 MG/ML CARPUJECT IVP STA (05:13)
[2023-02-25] MEDS ORDERED: iohexoL-300 100 ML VIAL IVP ONE (05:40)
[2023-02-25] MEDS ORDERED: LORazepam 2 MG/ML VIAL IVP STA (06:37)
[2023-02-25] MEDS ORDERED: ONDANSETRON 4 MG/2 ML VIAL IVP STA (06:37)
[2023-02-25 07:11] VITALS: BP 123/61
--- NOTE | 2023-02-25 09:49 | CT Report ---
PROCEDURE: ABDOMEN/PELVIS W INDICATIONS: abdominal pain CONTRAST: Omni 300 100ml TECHNIQUE: After the administration of IV contrast, 5 mm thick sections acquired from the diaphragms to the symp hysis. 5 mm thick coronal and sagittal reformats were acquired. For radiation dose reduction, the f ollowing was used: automated exposure control, adjustment of mA and/or kV according to patient size. COMPARISON: CT of abdomen and pelvis with, 09/02/2022. FINDINGS: Image quality: Excellent. Lung bases and heart: Lung bases are clear. Heart size is normal. There is moderate to severe coronar y artery calcification. Small hiatal hernia. Liver: Mild hepatomegaly and moderate hepatic steatosis. No solid mass. Gallbladder and biliary tree: The bladder is surgically removed. No biliary dilation. Spleen: No splenomegaly. Pancreas: No pancreatic ductal dilation. Adrenals: Bilateral adrenal thickening. No adrenal nodule. Kidneys and ureters: No hydronephrosis. No renal cystic lesion which requires follow up. No solid mas s. Bowel and peritoneum: No bowel distension. No pathologic free fluid. Diverticulosis of descending and sigmoid colon. Subtle stranding of the descending colon. Lymph nodes: No central or retroperitoneal adenopathy. Vessels: No infrarenal aortic aneurysm. Moderate atherosclerosis. PELVIS Reproductive organs: Unremarkable. Bladder: No abnormal wall thickening, accounting for underdistension. Pelvic lymph nodes: No pelvic adenopathy by size criteria. Bones: No aggressive osseous abnormality. Degenerative and postsurgical changes in lumbar spine. Other: Small fat-containing umbilical hernia. Bilateral small fat-containing inguinal hernias. IMPRESSION: 1. Diverticulosis. There is subtle stranding of the descending sigmoid colon. Recommend clinical geovanny elation for mild diverticulitis. 2. Mild hepatomegaly and moderate hepatic steatosis. No significant discrepancy with the preliminary interpretation. Reviewed by: Connor Dallas MD on 02/25/2023 9:48 AM PDT Approved by: Connor Dallas MD on 02/25/2023 9:48 AM PDT Station ID: [id number]
== END 2023-02-25 07:07 | disposition home or self-care (01) ==
LOC: EDUNIT# → ED 01:58
DX: R10.31 Right lower quadrant pain (principal); R10.32 Left lower quadrant pain; Z79.899 Other long term (current) drug therapy; Z79.01 Long term (current) use of anticoagulants
CPT/HCPCS: 36415; 74177; 80053; 81003; 83690; 85025; 96374; 96375; 99284; 99285; J1170; J2060; Q9967; 81001; 87086

== ENCOUNTER 2023-04-05 08:01 | Outpatient (CLI) | payer MEDICARE, BC ==
[2023-04-05 08:28] LABS: ALBUMIN 4.2 g/dL (3.2-5.5); ALKALINE PHOSPHATASE 73 IU/L (42-121); ALT ALANINE AMINOTRANSFERASE 23 IU/L (10-60); AST ASPARTATE AMINOTRANSFERASE 15 IU/L (10-42); BILIRUBIN,DIRECT 0.13 mg/dL (0.03-0.18); BILIRUBIN,TOTAL 0.8 mg/dL (0.2-1.0); BUN - BLOOD UREA NITROGEN 8 mg/dL (6-20); CALCIUM 9.6 mg/dL (8.5-10.3); CARBON DIOXIDE - CO2 30 mmol/L (21-32); CHLORIDE 105 mmol/L (101-111); CHOL/HDL RATIO 6.3 (<5.0); CHOLESTEROL 175 mg/dL; CREATININE 0.7 mg/dL (0.6-1.3); GFR - MDRD 111 (>89); GLUCOSE 133 mg/dL (74-104); HDL CHOLESTEROL 28 mg/dL; LDL CHOLESTEROL,CALCULATED 107 mg/dL; LDL/HDL RATIO 3.8 (<3.6); PHOSPHORUS 2.8 mg/dL (3.7-7.2); POTASSIUM 4.2 mmol/L (3.5-4.5); SODIUM 137 mmol/L (135-145); TOTAL PROTEIN 6.6 g/dL (6.4-8.9); TRIGLYCERIDES 200 mg/dL (48-352); VLDL CHOLESTEROL 40 mg/dL
== END 2023-04-05 08:02 | disposition home or self-care (01) ==
LOC: LAB 08:01
PROVIDERS: ATTEND Internal Medicine Cardiovascular Disease
DX: E78.2 Mixed hyperlipidemia (principal)
CPT/HCPCS: 36415; 80061; 80069; 80076; 83721

== ENCOUNTER 2023-05-17 08:50 | Outpatient (CLI) | payer MEDICARE, BC | END 2023-05-17 08:51 | disposition critical access hospital (66) | LOC: EMS 08:50 | DX: R10.84 Generalized abdominal pain (principal); R11.2 Nausea with vomiting, unspecified; R19.5 Other fecal abnormalities; R06.4 Hyperventilation | CPT/HCPCS: A0425; A0427 ==

== ENCOUNTER 2023-05-17 09:16 | Emergency (ER) | payer MEDICARE, BC ==
--- NOTE | 2023-05-17 09:27 | ED Physician Documentation ---
PD HPI ABD PAIN - Stated complaint Stated Complaint: N/V DARK STOOL - History obtained from History obtained from: Patient, EMS - History of Present Illness Timing - onset: Today, Last night Timing - duration: Days (1/2) Quality: Cramping, Aching, Pain Location: All over / everywhere Radiation: Lower back Worsened by: Eating Associated symptoms: Nausea, Vomiting, Melena. No: Fever, Diarrhea (he states he has had dark/black stools often the past few months. Has been to ED several times with findings of "diverticulitis each time". I reviewed prior ED visits and one CT had possible diverticitis early finding. Other CTs were normal. blood count has been normal in past.) Similar symptoms before: No diagnosis (pt states recurrent episodes of nausea and vomiting with diffuse abd pain comes on abruptly and has been to ED several times over past 6 months or so.) Review of Systems Constitutional: denies: Fever, Chills Nose: denies: Rhinorrhea / runny nose, Congestion Throat: denies: Sore throat Respiratory: denies: Cough GI: reports: Abdominal Pain (abrupt today), Nausea, Vomiting, Bloody / black stool Musculoskeletal: reports: Back pain (chronic) PD PAST MEDICAL HISTORY - Past Medical History Cardiovascular: Atrial fibrillation Respiratory: Shortness of breath Neuro: Headaches, Migraines Endocrine/Autoimmune: None GI: GERD, Other : None HEENT: None Psych: Bipolar disorder Musculoskeletal: None Derm: Eczema - Past Surgical History Past Surgical History: Yes General: Cholecystectomy, Other (hernia repair) Ortho: Spine surgery Cardiovascular: Other - Present Medications Home Medications: Ambulatory Orders Medication Instructions Recorded Confirmed Venlafaxine HCl [Venlafaxine HCl 150 mg PO DAILY 11/19/17 03/23/23 ER] lamoTRIgine [LaMICtal] 100 mg PO DAILY 11/19/17 03/23/23 Apixaban [Eliquis] 10 mg PO BID 12/12/17 03/23/23 lisinopriL [Prinivil] 5 mg PO DAILY 12/12/17 03/23/23 Ezetimibe/Simvastatin 10 mg PO DAILY 05/07/21 03/23/23 [Ezetimibe-Simvastatin 10-10 mg] Rosuvastatin Calcium [Crestor] 10 mg PO DAILY 05/07/21 03/23/23 bisoproloL fumarate [Bisoprolol 5 mg PO DAILY 05/07/21 03/23/23 Fumarate] LORazepam [Lorazepam] 1 mg PO TID PRN #14 tab 02/25/23 03/23/23 Ondansetron Odt [Zofran] 4 - 8 mg TL Q6H PRN #20 tablet 02/25/23 03/23/23 Hydrocodone/Acetaminophen 1 - 2 tab PO Q4HR PRN 03/23/23 03/23/23 [Hydrocodone-Acetamin 7.5-300] Promethazine Supp [Phenergan Supp] 25 mg [place] Q6HR PRN #6 supp 03/23/23 Tamsulosin HCl [Flomax] 1 cap PO DAILY 03/23/23 03/23/23 LORazepam [Ativan] 1 mg PO Q8H PRN 5 Days #10 tablet 03/24/23 Dicyclomine [Bentyl] 10 mg PO BID PRN #15 cap 05/17/23 Metoclopramide [Reglan] 10 mg PO ACHS #20 tablet 05/17/23 - Allergies Allergies/Adverse Reactions: Allergies Allergy/AdvReac Type Severity Reaction Status Date / Time No Known Drug Allergies Allergy Verified 05/17/23 09:27 - Social History Does the pt smoke?: No Smoking Status: Never smoker Does the pt drink ETOH?: Yes Does the pt have substance abuse?: No - Immunizations Immunizations are current?: Yes Immunizations: TDAP >10years/unknown - POLST Patient has POLST: No PD ED PE NORMAL - Vitals Vital signs reviewed: Yes - General General: Alert and oriented X 3, Well developed/nourished, Other (very anxious and in distressed pain of abdomen. Moving in cart some but limied by chronic back pain. ) - Cardiac Cardiac: RRR, No murmur - Respiratory Respiratory: Clear bilaterally - Abdomen Abdomen: Normal bowel sounds, Soft, Non distended, No organomegaly, Other (diffusely tender to light touch. ) - Back Back: No CVA TTP - Derm Derm: Normal color, Warm and dry - Neuro Neuro: Alert and oriented X 3, Normal speech Results - Vitals Vitals: Vital Signs - 24 hr 05/17/23 05/17/23 05/17/23 11:40 12:49 13:51 Heart Rate 50 L 79 Respiratory 19 19 19 Rate Blood Pressure 180/83 H O2 Saturation 97 95 05/17/23 15:13 Heart Rate 84 Respiratory 14 Rate Blood Pressure 158/95 H O2 Saturation 100 Oxygen O2 Source Room air - Labs Labs: Microbiology 05/17/23 11:50 Occult Blood - Final Stool Laboratory Tests 05/17/23 05/17/23 05/17/23 09:44 09:44 09:44 WBC 11.0 H RBC 5.26 Hgb 16.6 Hct 47.7 MCV 90.7 MCH 31.6 H MCHC 34.8 RDW 12.8 Plt Count 284 MPV 9.1 Neut # (Auto) 8.3 H Lymph # (Auto) 2.0 [place] # (Auto) 0.6 Eos # (Auto) 0.1 Baso # (Auto) 0.0 Absolute Nucleated RBC 0.00 Nucleated RBC % 0.0 Sodium 140 Potassium 3.3 L Chloride 108 Carbon Dioxide 23 Anion Gap 9.0 BUN 9 Creatinine 0.6 Estimated GFR (MDRD) 133 Glucose 155 H Lactic Acid 1.9 Calcium 10.1 Magnesium 1.6 L Total Bilirubin 0.7 AST 15 ALT 27 Alkaline Phosphatase 83 Total Protein 6.5 Albumin 4.3 Globulin 2.2 Albumin/Globulin Ratio 2.0 Lipase 5 L - Rads (name of study) abd CT Relevant Findings:: Prelim report reviewed (no acute findings.), EMP independent interpretation of test PD Medical Decision Making - ED course Complexity details: re-evaluated patient (The patient had good improvement in his abdominal pain and nausea with the combination of Inapsine and ketamine. He had also been given lorazepam initially for anxiety as well. He states he has had similar episodes in the past. He reports history of diverticulitis. Prior reports not Dx that. ), considered differential (Recurrent episodes of abdominal pain with nausea and vomiting. For his back pain, he is currently being treated with buprenorphine patch. This will make regular opiates less effective. I will approach with Toradol, Inapsine, ketamine.), d/w patient ED course: He has had epissodes of abrupt onset N/V and diffuse abd pain, seen in ER several times in the past 6 months. No consistent Dx. Had possible mild diverticulitis on one CT. Other CTs were negative. He does have chronic back pain and uses pain meds regularly. Previously other med, currently is buprenorphine 8 mg patch daily. When asked, he does say he supplements his pain control with daily cannibis. The episodes of pain and vomiting like this, with fairly normal testing in the past, could suggest episodes of cannibis hyperemesis. I initially treated with Inapsine, Ativan and fluids, with Toradol. Then added Ketamine to be more effective than other opioids given his buprenorphine partial agonist for daily pain control. This did help to be almost painless for awhile. Pain was returning some, so redosed with the ketamie and inapsine for nausea. He was then having much less of these symptoms and now mainly complaining of his back pain being riled by the ED cart and position. He is askiing to be discharged home so his back will be less painful. He did not give stool sample here, so not able to assess guaiac. I deferred rectal exam. Departure - Departure Disposition: Home, Self Care Clinical Impression: Abdominal pain of unknown etiology, Nausea and vomiting Record reviewed to determine appropriate education?: Yes Prescriptions: Dicyclomine [Bentyl] 10 mg PO BID PRN #15 cap PRN Reason: Abdominal Pain Metoclopramide [Reglan] 10 mg PO ACHS #20 tablet Comments: Your CT scan does not show any obvious acute abnormality. It is unclear the cause of your abdominal pain. Presume some intestinal spasming or inflammation. No signs of a localized infectious process and no signs of blockages etc. Continue with usual medications. Nausea medicines at home as needed. It looks like your previous prescription was ondansetron/Zofran orally and promethazine suppositories. I can try adding a prescription for Reglan/metoclopramide. For pain, add Tylenol 500-650 mg 4 times daily for the next 7-10 days to your Buprenorphine and Hydrocodone. We could try adding an antispasmodic medication presuming some intestinal cramping. This would not show is an abnormality on the CT scan. Continue with your usual medications otherwise. Recheck if not improved well over the next day or so and return if worse. Forms: PCP List Discharge Date/Time: 05/17/23 15:26
[2023-05-17] MEDS ORDERED: LORazepam 2 MG/ML VIAL IVP STA (09:29)
[2023-05-17] MEDS ORDERED: DROPERIDOL 5 MG/2 ML VIAL IVP STA ×2 (09:29→11:48)
[2023-05-17] MEDS ORDERED: KETOROLAC 15 MG/ML VIAL IVP STA (09:29)
[2023-05-17] MEDS ORDERED: SODIUM CHLORIDE 0.9% 1,000 ML IV STA (09:29)
[2023-05-17 09:53] LABS: BASOPHILS % (AUTO) 0.4 %; EOSINOPHILS # (AUTO) 0.1 10^3/uL (0.0-0.7); HCT - HEMATOCRIT 47.7 % (42.0-52.0); HGB - HEMOGLOBIN 16.6 g/dL (14.0-18.0); LYMPHOCYTES % (AUTO) 17.7 %; MEAN CORPUSCULAR HEMOGLOBIN 31.6 pg (27.0-31.0); MEAN CORPUSCULAR HGB CONC 34.8 g/dL (32.0-36.0); MEAN CORPUSCULAR VOLUME 90.7 fL (80.0-94.0); MEAN PLATELET VOLUME 9.1 fL (7.4-11.4); MONOCYTES # (AUTO) 0.6 10^3/uL (0.0-1.0); MONOCYTES % (AUTO) 5.5 %; NEUTROPHILS # (AUTO) 8.3 10^3/uL (1.5-6.6); NEUTROPHILS % (AUTO) 75.1 %; PLT - PLATELET COUNT 284 10^3/uL (130-450); RED BLOOD COUNT 5.26 10^6/uL (4.70-6.10); RED CELL DISTRIBUTION WIDTH 12.8 % (12.0-15.0)
[2023-05-17] MEDS ORDERED: KETAMINE 500 MG/10 ML VIAL IVP STA ×2 (10:03→13:01)
[2023-05-17 10:05] LABS: ALBUMIN 4.3 g/dL (3.2-5.5); BILIRUBIN,TOTAL 0.7 mg/dL (0.2-1.0); CALCIUM 10.1 mg/dL (8.5-10.3); CREATININE 0.6 mg/dL (0.6-1.3); MAGNESIUM 1.6 mg/dL (1.7-2.3); POTASSIUM 3.3 mmol/L (3.5-4.5); TOTAL PROTEIN 6.5 g/dL (6.4-8.9)
[2023-05-17] MEDS ORDERED: DICYCLOMINE 10 MG CAPSULE PO STA (11:47)
--- NOTE | 2023-05-17 14:14 | CT Report ---
PROCEDURE: CT abdomen and pelvis with contrast INDICATIONS: general abd pain and vomiting TECHNIQUE: Helical axial CT of the abdomen and pelvis was obtained after intravenous contrast adminis tration and reformatted in multiple planes. Radiation dose reduction was achieved using automated exp osure control or adjustment of mA and/or kV according to patient size. COMPARISON: None FINDINGS: Lower thorax: The lung bases are clear. Heart size normal. No hiatal hernia. Liver: Hepatic parenchyma is diffusely decreased in attenuation without focal mass lesion. Biliary system: Cholecystectomy Pancreas: Unremarkable without mass or inflammation evident. Spleen: Normal in size and density. Adrenals: Normal morphology and density. Reproductive system: Unremarkable as visualized. Urinary system: Normal renal size and attenuation. No renal calculi, hydronephrosis, or solid mass p resent. Urinary bladder unremarkable. Gastrointestinal system: The bowel appears unremarkable with no evidence of bowel obstruction or inf lammation. The stomach appears unremarkable. Multiple diverticula arise from the sigmoid colon withou t evidence of diverticulitis. Appendix: No findings to suggest acute appendicitis. Peritoneal spaces: No mesenteric or retroperitoneal adenopathy. No free air. No free fluid. Vasculature: Atherosclerotic calcification of the abdominal aorta without evidence of aneurysm. Abdominal wall: Abdominal wall is intact without evidence of ventral or inguinal hernias. Musculoskeletal: Normal bone mineralization. No acute fractures. Lower lumbar spine. Posterior deco mpression with fusion and large posterior jayme and screw construct IMPRESSION: No acute CT findings in the abdomen and pelvis Hepatic fatty infiltration. Additional chronic findings as above Reviewed by: Jac Han MD on 05/17/2023 1:13 PM TYLER Approved by: Jac Han MD on 05/17/2023 1:13 PM AKDT Station ID: [id number]
[2023-05-17] MEDS ORDERED: diphenhydrAMINE INJ 50 MG/ML VIAL IVP STA (14:20)
[2023-05-17] MEDS ORDERED: PROCHLORPERAZINE 10 MG/2 ML VIAL IVP STA (14:20)
[2023-05-17] MEDS ORDERED: HYDROmorphone 1 MG/ML CARPUJECT IVP STA (14:21)
[2023-05-17 15:19] VITALS: BP 158/95; O2SAT 100
[2023-05-17] MEDS ORDERED: IOVERSOL 320 100 ML VIAL IVP ONE (17:01)
== END 2023-05-17 15:26 | disposition home or self-care (01) ==
LOC: EDUNIT# → ED 09:16
DX: R10.84 Generalized abdominal pain (principal); R11.2 Nausea with vomiting, unspecified
CPT/HCPCS: 36415; 74177; 80053; 82272; 83605; 83690; 83735; 85025; 96374; 96375; 96376; 99284; A9270; J1170; J1200; J2060; Q9967

== ENCOUNTER 2023-06-17 15:30 | Outpatient (CLI) | payer MEDICARE, BC ==
[2023-06-17 15:43] LABS: BASOPHILS # (AUTO) 0.1 10^3/uL (0.0-0.1); BASOPHILS % (AUTO) 0.5 %; EOSINOPHILS # (AUTO) 0.3 10^3/uL (0.0-0.7); EOSINOPHILS % (AUTO) 2.1 %; HCT - HEMATOCRIT 47.5 % (42.0-52.0); LYMPHOCYTES # (AUTO) 3.8 10^3/uL (1.5-3.5); LYMPHOCYTES % (AUTO) 30.9 %; MEAN CORPUSCULAR HEMOGLOBIN 31.4 pg (27.0-31.0); MEAN CORPUSCULAR HGB CONC 33.7 g/dL (32.0-36.0); MEAN CORPUSCULAR VOLUME 93.3 fL (80.0-94.0); MEAN PLATELET VOLUME 8.9 fL (7.4-11.4); MONOCYTES # (AUTO) 0.8 10^3/uL (0.0-1.0); MONOCYTES % (AUTO) 6.2 %; NEUTROPHILS # (AUTO) 7.3 10^3/uL (1.5-6.6); PLT - PLATELET COUNT 265 10^3/uL (130-450); RED BLOOD COUNT 5.09 10^6/uL (4.70-6.10); WHITE BLOOD COUNT 12.1 x10^3/uL (4.8-10.8)
[2023-06-17 16:41] LABS: ALBUMIN 4.3 g/dL (3.2-5.5); BILIRUBIN,TOTAL 0.4 mg/dL (0.2-1.0); CALCIUM 9.7 mg/dL (8.5-10.3); CREATININE 0.8 mg/dL (0.6-1.3); POTASSIUM 4.2 mmol/L (3.5-4.5); TOTAL PROTEIN 6.4 g/dL (6.4-8.9)
== END 2023-06-17 15:31 | disposition home or self-care (01) ==
LOC: LAB 15:30
DX: Z01.818 Encounter for other preprocedural examination (principal)
CPT/HCPCS: 36415; 80053; 85025

== ENCOUNTER 2023-08-07 08:00 | Outpatient (CLI) | payer MEDICARE, BC ==
[2023-08-07 07:29] LABS: ALBUMIN 4.5 g/dL (3.2-5.5); ALKALINE PHOSPHATASE 87 IU/L (42-121); ALT ALANINE AMINOTRANSFERASE 39 IU/L (10-60); AST ASPARTATE AMINOTRANSFERASE 18 IU/L (10-42); BILIRUBIN,DIRECT 0.11 mg/dL (0.03-0.18); BILIRUBIN,TOTAL 0.6 mg/dL (0.2-1.0); BUN - BLOOD UREA NITROGEN 14 mg/dL (6-20); CALCIUM 9.8 mg/dL (8.5-10.3); CARBON DIOXIDE - CO2 31 mmol/L (21-32); CHLORIDE 101 mmol/L (101-111); CHOL/HDL RATIO 5.2 (<5.0); CHOLESTEROL 181 mg/dL; CREATININE 0.9 mg/dL (0.6-1.3); GFR - MDRD 83 (>89); GLUCOSE 150 mg/dL (74-104); HDL CHOLESTEROL 35 mg/dL; LDL CHOLESTEROL,CALCULATED 117 mg/dL; LDL/HDL RATIO 3.3 (<3.6); PHOSPHORUS 3.2 mg/dL (2.5-5.0); POTASSIUM 4.1 mmol/L (3.5-4.5); SODIUM 139 mmol/L (135-145); TOTAL PROTEIN 6.5 g/dL (6.4-8.9); TRIGLYCERIDES 147 mg/dL (48-352); VLDL CHOLESTEROL 29 mg/dL
== END 2023-08-07 23:59 | disposition home or self-care (01) ==
LOC: LAB 08:00
PROVIDERS: ATTEND Internal Medicine Cardiovascular Disease
DX: E78.2 Mixed hyperlipidemia (principal)
CPT/HCPCS: 36415; 80061; 80069; 80076; 83721

== ENCOUNTER 2023-09-26 10:46 | Emergency (ER) | payer BC, MEDICARE ==
--- NOTE | 2023-09-26 12:08 | ED Physician Documentation ---
PD HPI HEADACHE - Stated complaint Stated Complaint: NO APPETITE,FATIGUE,WEAK - Chief complaint Chief Complaint: Trauma Hd/Nk - History obtained from History obtained from: Patient - Additional information Additional information: 73-year-old gentleman on Eliquis was working on his trailer lites 2 weeks ago. He was sitting in his walker and leaning over forward, the walker went out from under him and he fell backwards hitting the back of his head quite hard. Since then he has been slow to think with headaches, and today developed nausea and vomiting. Very fatigued. PD PAST MEDICAL HISTORY - Past Medical History Past Medical History: Yes Cardiovascular: Atrial fibrillation Respiratory: Shortness of breath Neuro: CVA, Headaches, Migraines Endocrine/Autoimmune: None GI: GERD, Other : None HEENT: None Psych: Bipolar disorder Musculoskeletal: None Derm: Eczema - Past Surgical History Past Surgical History: Yes General: Cholecystectomy, Other Ortho: Spine surgery Cardiovascular: Other - Present Medications Home Medications: Ambulatory Orders Medication Instructions Recorded Confirmed Venlafaxine HCl [Venlafaxine HCl 150 mg PO DAILY 11/19/17 03/23/23 ER] lamoTRIgine [LaMICtal] 100 mg PO DAILY 11/19/17 03/23/23 Apixaban [Eliquis] 10 mg PO BID 12/12/17 03/23/23 lisinopriL [Prinivil] 5 mg PO DAILY 12/12/17 03/23/23 Ezetimibe/Simvastatin 10 mg PO DAILY 05/07/21 03/23/23 [Ezetimibe-Simvastatin 10-10 mg] Rosuvastatin Calcium [Crestor] 10 mg PO DAILY 05/07/21 03/23/23 bisoproloL fumarate [Bisoprolol 5 mg PO DAILY 05/07/21 03/23/23 Fumarate] LORazepam [Lorazepam] 1 mg PO TID PRN #14 tab 02/25/23 03/23/23 Ondansetron Odt [Zofran] 4 - 8 mg TL Q6H PRN #20 tablet 02/25/23 03/23/23 Hydrocodone/Acetaminophen 1 - 2 tab PO Q4HR PRN 03/23/23 03/23/23 [Hydrocodone-Acetamin 7.5-300] Promethazine Supp [Phenergan Supp] 25 mg [place] Q6HR PRN #6 supp 03/23/23 Tamsulosin HCl [Flomax] 1 cap PO DAILY 03/23/23 03/23/23 LORazepam [Ativan] 1 mg PO Q8H PRN 5 Days #10 tablet 03/24/23 Dicyclomine [Bentyl] 10 mg PO BID PRN #15 cap 05/17/23 Metoclopramide [Reglan] 10 mg PO ACHS #20 tablet 05/17/23 Amox/Clav 875/125 [Augmentin] 1 each PO Q12H #20 tablet 09/26/23 - Allergies Allergies/Adverse Reactions: Allergies Allergy/AdvReac Type Severity Reaction Status Date / Time No Known Drug Allergies Allergy Verified 09/26/23 11:00 - Social History Does the pt smoke?: No Smoking Status: Never smoker Does the pt drink ETOH?: Yes Does the pt have substance abuse?: No - Immunizations Immunizations are current?: Yes Immunizations: TDAP >10years/unknown - POLST Patient has POLST: No PD ED PE NORMAL - Vitals Vital signs reviewed: Yes - General General: Alert and oriented X 3, No acute distress - HEENT HEENT: PERRL, EOMI - Neck Neck: Supple, no meningeal sign, No bony TTP - Cardiac Cardiac: RRR, No murmur - Respiratory Respiratory: No respiratory distress, Clear bilaterally - Abdomen Abdomen: Non tender - Neuro Neuro: Other (Very slightly slow to answer questions, there is a suggestion of mild right pronator drift.) Eye Opening: Spontaneous Motor: Obeys Commands Verbal: Oriented GCS Score: 15 - Psych Psych: Normal mood, Normal affect Results - Vitals Vitals: Vital Signs - 24 hr 09/26/23 09/26/23 09/26/23 10:54 11:02 13:02 Temperature 36 C L Heart Rate 76 57 L 56 L Respiratory 16 16 16 Rate Blood Pressure 124/67 135/70 H 155/80 H O2 Saturation 93 94 95 Oxygen O2 Source Room air - Rads (name of study) CT head and cervical spine Relevant Findings:: Final report received, EMP independent interpretation of test PD Medical Decision Making - ED course ED course: 73-year-old gentleman on Eliquis presents with persistent postconcussive symptoms after hitting his head 2 weeks ago. He is at high risk for intracranial injury given his anticoagulant use. As such he received CTs of the head and cervical spine which showed no traumatic findings but he did have the incidental findings outlined in the discharge instructions and he and his were given copies of both CT reads and discussed need for follow-up with PCP. Given the fluid in the sinuses he was queried as to the symptomatology of this and he has had sinus pressure for 2 weeks a lot of drainage so we will treat with Augmentin. Clinically does not have mastoiditis. 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 Fluid in the sinuses and right mastoid, and a likely arthritic lesion at the C2 cervical vertebra, consider MRI with your primary care physician and follow-up. I sent your prescription electronically to [facility] in [place]. Call your doctor to arrange a follow-up appointment, make the next available appointment. In the interim, return anytime if worse or if new symptoms develop. I did discuss with our biomedical equipment technician that you can have an MRI done here likely with your spinal cord stimulator, just be prepared to read the information from the stimulator information card to our research geologist when that is scheduled. Forms: PCP List
--- NOTE | 2023-09-26 13:02 | CT Report ---
PROCEDURE: Head WO INDICATIONS: head inj TECHNIQUE: Noncontrast 4.5 mm thick angled axial sections acquired from the foramen magnum to the vertex. For r adiation dose reduction, the following was used: automated exposure control, adjustment of mA and/or kV according to patient size. COMPARISON: 12/26/2022 FINDINGS: Image quality: Diagnostic CSF spaces: Basal cisterns are patent. Lateral ventricles are symmetric. Volume: Vascular calcifications. Periventricular white matter disease is commonly seen with chronic m icroangiopathy. Volume loss is present. These findings are mild to moderate. Brain: There is a new area hypoattenuation involving the anterior limb of the left internal capsule, and caudate head. No acute hemorrhage. No gross loss of bella-white differentiation. Craniofacial structures: Mild thickening of the paranasal sinuses. Right mastoid effusion. IMPRESSION: No acute intracranial hemorrhage. Hypoattenuation at the left caudate head and internal capsule suspicious for age indeterminate, nonac [place] infarction or other injury. Mild paranasal sinus thickening. Right mastoid effusion. Reviewed by: Nito Rabago MD on 09/26/2023 1:01 PM PST Approved by: Nito Rabago MD on 09/26/2023 1:01 PM PST Station ID: [id number]
--- NOTE | 2023-09-26 13:08 | CT Report ---
PROCEDURE: Cervical Spine WO INDICATIONS: head inj TECHNIQUE: Noncontrast 3 mm thick sections acquired from the skull base to the T4 level. Sagittal and coronal r eformats were then constructed. For radiation dose reduction, the following was used: automated exp osure control, adjustment of mA and/or kV according to patient size. COMPARISON: 05/06/2021 CT FINDINGS: Image quality: Diagnostic, but degraded by metallic artifact Bones: Moderate to severe degenerative changes and straightening of normal cervical lordosis. An age- indeterminate lucency is seen at the odontoid process, probably present in 2020, measuring 1 x 0.7 cm , previously 1 x 0.5 cm,. Corpectomy and anterior fusion from C3 to C5. No traumatic subluxation. Soft tissues: No apical pneumothorax or pathologic prevertebral soft tissue swelling. IMPRESSION: Moderate to severe degenerative changes and postsurgical sequelae. No definite acute fracture or trau matic subluxation. Indeterminate lucency at C2, very slightly increased in size compared to 2020. Consider MRI if there is further concern if there are no contraindications. Reviewed by: Nito Rabago MD on 09/26/2023 1:07 PM PST Approved by: Nito Rabago MD on 09/26/2023 1:07 PM PST Station ID: [id number]
[2023-09-26 13:21] VITALS: BP 155/80; O2SAT 95
== END 2023-09-26 13:52 | disposition home or self-care (01) ==
LOC: ED 10:46
DX: S06.0X0A Concussion without loss of consciousness, initial encounter (principal); R40.2412 Glasgow coma scale score 13-15, at arrival to emergency department; V00.891A Fall from other pedestrian conveyance, initial encounter; Y93.H9 Activity, other involving exterior property and land maintenance, building and construction; Y92.029 Unspecified place in mobile home as the place of occurrence of the external cause; Z79.01 Long term (current) use of anticoagulants
CPT/HCPCS: 99284

== ENCOUNTER 2023-11-14 06:56 | Outpatient (CLI) | payer MEDICARE ==
[2023-11-14 07:27] LABS: BASOPHILS # (AUTO) 0.1 10^3/uL (0.0-0.1); BASOPHILS % (AUTO) 0.4 %; EOSINOPHILS # (AUTO) 0.4 10^3/uL (0.0-0.7); EOSINOPHILS % (AUTO) 3.8 %; HCT - HEMATOCRIT 47.2 % (42.0-52.0); HGB - HEMOGLOBIN 16.4 g/dL (14.0-18.0); LYMPHOCYTES # (AUTO) 3.5 10^3/uL (1.5-3.5); LYMPHOCYTES % (AUTO) 30.3 %; MEAN CORPUSCULAR HEMOGLOBIN 32.1 pg (27.0-31.0); MEAN CORPUSCULAR HGB CONC 34.7 g/dL (32.0-36.0); MEAN CORPUSCULAR VOLUME 92.4 fL (80.0-94.0); MEAN PLATELET VOLUME 8.7 fL (7.4-11.4); MONOCYTES # (AUTO) 0.7 10^3/uL (0.0-1.0); MONOCYTES % (AUTO) 6.5 %; NEUTROPHILS # (AUTO) 6.7 10^3/uL (1.5-6.6); NEUTROPHILS % (AUTO) 58.6 %; PLT - PLATELET COUNT 242 10^3/uL (130-450); RED BLOOD COUNT 5.11 10^6/uL (4.70-6.10); RED CELL DISTRIBUTION WIDTH 12.6 % (12.0-15.0); WHITE BLOOD COUNT 11.4 x10^3/uL (4.8-10.8)
[2023-11-14 07:41] LABS: ALBUMIN 4.4 g/dL (3.2-5.5); ALBUMIN/GLOBULIN RATIO 1.9 (1.0-2.2); BILIRUBIN,TOTAL 0.5 mg/dL (0.2-1.0); CALCIUM 9.9 mg/dL (8.5-10.3); MAGNESIUM 1.9 mg/dL (1.7-2.3); POTASSIUM 4.2 mmol/L (3.5-4.5); TOTAL PROTEIN 6.7 g/dL (6.4-8.9)
[2023-11-14 07:55] LABS: THYROID STIMULATING HORMONE 3.43 uIU/mL (0.34-5.60)
[2023-11-14 09:02] LABS: ESTIMATED AVERAGE GLUCOSE 126 mg/dL (70-100)
== END 2023-11-14 06:57 | disposition home or self-care (01) ==
LOC: LAB 06:56
PROVIDERS: ATTEND Specialist
DX: I10 Essential (primary) hypertension (principal); E78.5 Hyperlipidemia, unspecified; R73.9 Hyperglycemia, unspecified; E55.9 Vitamin D deficiency, unspecified
CPT/HCPCS: 36415; 80053; 82306; 82607; 82746; 83036; 83735; 84153; 84443; 85025

== ENCOUNTER 2023-12-23 11:08 | Emergency (ER) | payer MEDICARE ==
--- NOTE | 2023-12-23 11:23 | ED Physician Documentation ---
PD HPI CHEST PAIN - Stated complaint Stated Complaint: CP - Chief complaint Chief Complaint: Cardiac - Additional information Additional information: 73-year-old male With history of paroxysmal atrial fibrillation anticoagulated on Eliquis presents emergency department for sudden onset chest pain center. Patient said that he was sitting at home talking with his son he has not had anything to eat today, Started feeling sudden onset nausea vomiting. Patient denies this ever happening before denies hx of MIs. Currently patient denies any chest pain or other symptoms he said that his chest pain lasted for about 40 minutes prior to calling 911. No recent fevers or chills.Denies chest pain, shortness of breath, dizziness, nausea. Patient sleeps with CPAP at night with 2 and half liters of oxygen for sleep apnea he currently has a chronic cough that is being worked up by his primary care provider outpatient and has already had imaging such as MRI and x-rays. No history of lung cancer does not smoke cigarettes. PD PAST MEDICAL HISTORY - Past Medical History Past Medical History: Yes Cardiovascular: Atrial fibrillation Respiratory: Shortness of breath Neuro: CVA, Headaches, Migraines Endocrine/Autoimmune: None GI: GERD, Other : None HEENT: None Psych: Bipolar disorder Musculoskeletal: None Derm: Eczema - Past Surgical History Past Surgical History: Yes General: Cholecystectomy, Other Ortho: Spine surgery Cardiovascular: Other - Present Medications Home Medications: Ambulatory Orders Medication Instructions Recorded Confirmed Venlafaxine HCl [Venlafaxine HCl 150 mg PO DAILY 11/19/17 03/23/23 ER] lamoTRIgine [LaMICtal] 100 mg PO DAILY 11/19/17 03/23/23 Apixaban [Eliquis] 10 mg PO BID 12/12/17 03/23/23 lisinopriL [Prinivil] 5 mg PO DAILY 12/12/17 03/23/23 Ezetimibe/Simvastatin 10 mg PO DAILY 05/07/21 03/23/23 [Ezetimibe-Simvastatin 10-10 mg] Rosuvastatin Calcium [Crestor] 10 mg PO DAILY 05/07/21 03/23/23 bisoproloL fumarate [Bisoprolol 5 mg PO DAILY 05/07/21 03/23/23 Fumarate] LORazepam [Lorazepam] 1 mg PO TID PRN #14 tab 02/25/23 03/23/23 Ondansetron Odt [Zofran] 4 - 8 mg TL Q6H PRN #20 tablet 02/25/23 03/23/23 Hydrocodone/Acetaminophen 1 - 2 tab PO Q4HR PRN 03/23/23 03/23/23 [Hydrocodone-Acetamin 7.5-300] Promethazine Supp [Phenergan Supp] 25 mg OR Q6HR PRN #6 supp 03/23/23 Tamsulosin HCl [Flomax] 1 cap PO DAILY 03/23/23 03/23/23 LORazepam [Ativan] 1 mg PO Q8H PRN 5 Days #10 tablet 03/24/23 Dicyclomine [Bentyl] 10 mg PO BID PRN #15 cap 05/17/23 Metoclopramide [Reglan] 10 mg PO ACHS #20 tablet 05/17/23 Amox/Clav 875/125 [Augmentin] 1 each PO Q12H #20 tablet 09/26/23 - Allergies Allergies/Adverse Reactions: Allergies Allergy/AdvReac Type Severity Reaction Status Date / Time quetiapine Allergy Unknown Verified 12/23/23 11:21 - Social History Does the pt smoke?: No Smoking Status: Never smoker Does the pt drink ETOH?: Yes Does the pt have substance abuse?: No - Immunizations Immunizations are current?: Yes Immunizations: TDAP >10years/unknown - POLST Patient has POLST: No PD ED PE NORMAL - Vitals Vital signs reviewed: Yes - General General: Alert and oriented X 3 - HEENT HEENT: Atraumatic, EOMI - Cardiac Cardiac: RRR, No murmur, No gallop, Strong equal pulses - Respiratory Respiratory: Other (bilateral ronchi and wheezing.) - Abdomen Abdomen: Normal bowel sounds, Soft, Non tender, Non distended - Back Back: No CVA TTP - Derm Derm: Normal color, Warm and dry, No rash - Extremities Extremities: No edema, No calf tenderness / cord - Neuro Neuro: Alert and oriented X 3, 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, No motor deficit, No sensory deficit, Normal speech - Psych Psych: Normal mood Results - Vitals Vitals: Vital Signs - 24 hr 12/23/23 12/23/23 12/23/23 11:16 11:33 11:50 Temperature 36.4 C L Heart Rate 54 L 60 Respiratory 15 15 Rate Blood Pressure 140/74 H 148/76 H Blood Pressure 148/76 H [Right] O2 Saturation 91 L 91 L 12/23/23 12/23/23 12/23/23 12:20 13:00 13:30 Temperature Heart Rate 52 L 52 L 51 L Respiratory 16 15 15 Rate Blood Pressure 134/75 H 156/80 H 161/79 H Blood Pressure [Right] O2 Saturation 92 92 93 12/23/23 12/23/23 12/23/23 14:00 14:30 15:00 Temperature Heart Rate 51 L 50 L 50 L Respiratory 24 22 20 Rate Blood Pressure 168/76 H 171/79 H 163/84 H Blood Pressure [Right] O2 Saturation 93 90 L 92 12/23/23 15:23 Temperature Heart Rate 52 L Respiratory 17 Rate Blood Pressure 167/82 H Blood Pressure [Right] O2 Saturation 93 Oxygen O2 Source Room air - EKG (time done) 1124 EKG releavant findings:: EKG personally interpreted by author of this note. Relevant findings are: Rate: Rate (enter#) (53) Rhythm: Sinus bradycardia Hana: Normal Intervals: Normal OR, QRS normal. No: Prolonged QT QRS: Normal Ischemia: Other (flattened T waves) Compare to prior EKG: Unchanged from prior EKG Computer interpretation: Agree with computer - Labs Labs: Laboratory Tests 12/23/23 12/23/23 12/23/23 11:18 11:18 11:18 WBC 10.8 RBC 4.98 Hgb 15.5 Hct 46.3 MCV 93.0 MCH 31.1 H MCHC 33.5 RDW 13.3 Plt Count 266 MPV 9.0 Neut # (Auto) 7.0 H Lymph # (Auto) 2.8 [place] # (Auto) 0.6 Eos # (Auto) 0.3 Baso # (Auto) 0.0 Absolute Nucleated RBC 0.00 Nucleated RBC % 0.0 Sodium 136 Potassium 3.9 Chloride 103 Carbon Dioxide 25 Anion Gap 8.0 BUN 16 Creatinine 0.9 Estimated GFR (MDRD) 83 L Glucose 140 H Calcium 9.5 Total Bilirubin 0.5 AST 86 H ALT 81 H Alkaline Phosphatase 93 Troponin I High Sens 6.3 B-Natriuretic Peptide 28 Total Protein 6.3 L Albumin 4.3 Globulin 2.0 L Albumin/Globulin Ratio 2.2 Lipase < 10 L 12/23/23 14:05 WBC RBC Hgb Hct MCV MCH MCHC RDW Plt Count MPV Neut # (Auto) Lymph # (Auto) [place] # (Auto) Eos # (Auto) Baso # (Auto) Absolute Nucleated RBC Nucleated RBC % Sodium Potassium Chloride Carbon Dioxide Anion Gap BUN Creatinine Estimated GFR (MDRD) Glucose Calcium Total Bilirubin AST ALT Alkaline Phosphatase Troponin I High Sens 7.1 B-Natriuretic Peptide Total Protein Albumin Globulin Albumin/Globulin Ratio Lipase - Rads (name of study) Chest x-ray Relevant Findings:: Final report received, EMP independent interpretation of test, Other (Mildly increased vascularity most likely secondary to edema) PD Medical Decision Making - ED course ED course: 72 yo male here for one episode of chest pain that has fully resolved. Patient has no pitting edema he does have rhonchorous sounding lungs but BNP is within normal limits. EKG without signs of active ischemia. Given the timing of pain to ER presentation, delta troponin was Negative so doubt NSTEMI. Presentation not consistent with acute PE (Wells low risk low),pneumothorax (not visualized on chest xr), thoracic aortic dissection, pericarditis, tamponade, pneumonia (no infectious symptoms, clear chest xr), myocarditis (no recent illness, neg trop). HEART score:4 , Patient's library director is with [facility] I did offer to call [facility] to transfer the patient for further inpatient cardiology workup and patient kindly declined and said that he would like to pursue this outpatient. Patient has had no recurrent episodes of chest pain and denies any chest pain since has been here. At this point in time I believe that he is safe for discharge he was given very strict return precautions all questions answered and told to follow-up with his library director soon as possible. Departure - Departure Disposition: 01 Home, Self Care Clinical Impression: Chest pain Qualifiers: Chest pain type: unspecified Qualified Code(s): R07.9 - Chest pain, unspecified Instructions: ED Chest Pain Atypical Unkn Cause Comments: Thank you for trusting us with your care. We have completed labs, EKG, and chest X-ray and are not seeing any acute abnormalities at this time. As we discussed we did offer to call [facility] to see if they would be willing to hospitalize you for your episode of chest pain but you opted to call them on your own to see if they could get you in soon for outpatient work up. Please have a very low threshold to come back to the ER if this symptoms re- occur or if you start to have any dizziness, shortness of breath or any other concerning emergent symptoms. Forms: PCP List Discharge Date/Time: 12/23/23 15:40
[2023-12-23 11:27] LABS: BASOPHILS % (AUTO) 0.3 %; EOSINOPHILS # (AUTO) 0.3 10^3/uL (0.0-0.7); EOSINOPHILS % (AUTO) 2.6 %; HCT - HEMATOCRIT 46.3 % (42.0-52.0); HGB - HEMOGLOBIN 15.5 g/dL (14.0-18.0); LYMPHOCYTES # (AUTO) 2.8 10^3/uL (1.5-3.5); LYMPHOCYTES % (AUTO) 26.2 %; MEAN CORPUSCULAR HEMOGLOBIN 31.1 pg (27.0-31.0); MEAN CORPUSCULAR HGB CONC 33.5 g/dL (32.0-36.0); MONOCYTES # (AUTO) 0.6 10^3/uL (0.0-1.0); MONOCYTES % (AUTO) 5.5 %; NEUTROPHILS % (AUTO) 64.8 %; PLT - PLATELET COUNT 266 10^3/uL (130-450); RED BLOOD COUNT 4.98 10^6/uL (4.70-6.10); RED CELL DISTRIBUTION WIDTH 13.3 % (12.0-15.0); WHITE BLOOD COUNT 10.8 x10^3/uL (4.8-10.8)
--- NOTE | 2023-12-23 11:41 | XRAY Report ---
PROCEDURE: Chest 1V INDICATIONS: Chest pain TECHNIQUE: One view of the chest was acquired. COMPARISON: Chest x-ray 12/26/2022 FINDINGS: Surgical changes and devices: None. Lungs and pleura: Minimal appearance of increased vascularity. No consolidations. Mediastinum: Mediastinal contours appear normal. Heart size is at the upper limits of normal Bones and chest wall: No suspicious bony lesions. Overlying soft tissues appear unremarkable. IMPRESSION: Minimal increased vascularity suggestive of edema. Reviewed by: Ivana Marie MD on 12/23/2023 11:39 AM PDT Approved by: Ivana Marie MD on 12/23/2023 11:39 AM PDT Station ID: [id number]
[2023-12-23 11:42] LABS: ALBUMIN 4.3 g/dL (3.2-5.5); ALBUMIN/GLOBULIN RATIO 2.2 (1.0-2.2); ALKALINE PHOSPHATASE 93 IU/L (42-121); ALT ALANINE AMINOTRANSFERASE 81 IU/L (10-60); AST ASPARTATE AMINOTRANSFERASE 86 IU/L (10-42); BILIRUBIN,TOTAL 0.5 mg/dL (0.2-1.0); BUN - BLOOD UREA NITROGEN 16 mg/dL (6-20); CALCIUM 9.5 mg/dL (8.5-10.3); CARBON DIOXIDE - CO2 25 mmol/L (21-32); CHLORIDE 103 mmol/L (101-111); CREATININE 0.9 mg/dL (0.6-1.3); GFR - MDRD 83 (>89); GLUCOSE 140 mg/dL (74-104); POTASSIUM 3.9 mmol/L (3.5-4.5); SODIUM 136 mmol/L (135-145); TOTAL PROTEIN 6.3 g/dL (6.4-8.9)
[2023-12-23 11:43] LABS: LIPASE < 10 U/L (11-82)
[2023-12-23 11:48] LABS: TROPONIN I HIGH SENSITIVITY 6.3 ng/L (2.3-19.7)
[2023-12-23 15:28] VITALS: BP 167/82; O2SAT 93
== END 2023-12-23 15:40 | disposition home or self-care (01) ==
LOC: EDUNIT# → ED 11:08
DX: R07.9 Chest pain, unspecified (principal)
CPT/HCPCS: 36415; 80053; 83690; 83880; 84484; 85025; 93005; 99284

== ENCOUNTER 2024-04-05 10:05 | Outpatient (CLI) | payer MEDICARE ==
[2024-04-05 10:46] LABS: BASOPHILS # (AUTO) 0.1 10^3/uL (0.0-0.1); BASOPHILS % (AUTO) 0.6 %; EOSINOPHILS # (AUTO) 0.7 10^3/uL (0.0-0.7); EOSINOPHILS % (AUTO) 6.3 %; HCT - HEMATOCRIT 44.9 % (42.0-52.0); HGB - HEMOGLOBIN 14.7 g/dL (14.0-18.0); LYMPHOCYTES # (AUTO) 2.2 10^3/uL (1.5-3.5); LYMPHOCYTES % (AUTO) 21.3 %; MEAN CORPUSCULAR HEMOGLOBIN 30.6 pg (27.0-31.0); MEAN CORPUSCULAR HGB CONC 32.7 g/dL (32.0-36.0); MEAN CORPUSCULAR VOLUME 93.5 fL (80.0-94.0); MEAN PLATELET VOLUME 8.8 fL (7.4-11.4); MONOCYTES # (AUTO) 0.6 10^3/uL (0.0-1.0); NEUTROPHILS # (AUTO) 6.8 10^3/uL (1.5-6.6); NEUTROPHILS % (AUTO) 65.4 %; PLT - PLATELET COUNT 286 10^3/uL (130-450); WHITE BLOOD COUNT 10.4 x10^3/uL (4.8-10.8)
[2024-04-05 11:08] LABS: ALBUMIN 4.3 g/dL (3.2-5.5); ALBUMIN/GLOBULIN RATIO 1.9 (1.0-2.2); BILIRUBIN,TOTAL 0.5 mg/dL (0.2-1.0); CALCIUM 9.6 mg/dL (8.5-10.3); CREATININE 0.8 mg/dL (0.6-1.3); MAGNESIUM 1.9 mg/dL (1.7-2.3); POTASSIUM 3.8 mmol/L (3.5-4.5); TOTAL PROTEIN 6.6 g/dL (6.4-8.9)
[2024-04-05 11:23] LABS: THYROID STIMULATING HORMONE 2.57 uIU/mL (0.34-5.60)
[2024-04-05 14:39] LABS: ESTIMATED AVERAGE GLUCOSE 134 mg/dL (70-100); HEMOGLOBIN A1c% 6.3 % (4.27-6.07)
== END 2024-04-05 10:06 | disposition home or self-care (01) ==
LOC: LAB 10:05
DX: J31.0 Chronic rhinitis (principal); I10 Essential (primary) hypertension; E78.5 Hyperlipidemia, unspecified; R73.9 Hyperglycemia, unspecified; E55.9 Vitamin D deficiency, unspecified
CPT/HCPCS: 36415; 80053; 81599; 82306; 82607; 82746; 83036; 83735; 84153; 84443; 85025

== ENCOUNTER 2024-04-19 10:29 | Emergency (ER) | payer MEDICARE ==
[2024-04-19 11:03] VITALS: BP 118/68; O2SAT 95
--- NOTE | 2024-04-19 11:25 | ED Physician Documentation ---
PD HPI LOWER EXT INJURY - Stated complaint Stated Complaint: RT FOOT PX - Chief complaint Chief Complaint: Ext Problem - Additional information Additional information: 73-year-old male with prediabetes, A-fib, migraines, headaches, bipolar di sorder, eczema presents emergency department for right pinky toe pain. Patient says that he accidentally hit his right pinky toe to the lateral aspect on his walker about 2 weeks ago the cut itself has healed but he is having increased pain and redness to the actual toe. This morning he says that he has been having he thinks fevers and chills and nausea with severe increase in pain. Patient is on oxycodone and morphine for chronic back pain due to multiple back injuries and surgeries and does have a spinal cord stimulator PD PAST MEDICAL HISTORY - Past Medical History Cardiovascular: Atrial fibrillation Respiratory: Shortness of breath Neuro: CVA, Headaches, Migraines Endocrine/Autoimmune: None GI: GERD, Other : None HEENT: None Psych: Bipolar disorder Musculoskeletal: None Derm: Eczema - Past Surgical History Past Surgical History: Yes General: Cholecystectomy, Other Ortho: Spine surgery Cardiovascular: Other - Present Medications Home Medications: Ambulatory Orders Medication Instructions Recorded Confirmed Venlafaxine HCl [Venlafaxine HCl 150 mg PO DAILY 11/19/17 03/23/23 ER] lamoTRIgine [LaMICtal] 100 mg PO DAILY 11/19/17 03/23/23 Apixaban [Eliquis] 10 mg PO BID 12/12/17 03/23/23 lisinopriL [Prinivil] 5 mg PO DAILY 12/12/17 03/23/23 Ezetimibe/Simvastatin 10 mg PO DAILY 05/07/21 03/23/23 [Ezetimibe-Simvastatin 10-10 mg] Rosuvastatin Calcium [Crestor] 10 mg PO DAILY 05/07/21 03/23/23 bisoproloL fumarate [Bisoprolol 5 mg PO DAILY 05/07/21 03/23/23 Fumarate] LORazepam [Lorazepam] 1 mg PO TID PRN #14 tab 02/25/23 03/23/23 Ondansetron Odt [Zofran] 4 - 8 mg TL Q6H PRN #20 tablet 02/25/23 03/23/23 Hydrocodone/Acetaminophen 1 - 2 tab PO Q4HR PRN 03/23/23 03/23/23 [Hydrocodone-Acetamin 7.5-300] Promethazine Supp [Phenergan Supp] 25 mg MN Q6HR PRN #6 supp 03/23/23 Tamsulosin HCl [Flomax] 1 cap PO DAILY 03/23/23 03/23/23 LORazepam [Ativan] 1 mg PO Q8H PRN 5 Days #10 tablet 03/24/23 Dicyclomine [Bentyl] 10 mg PO BID PRN #15 cap 05/17/23 Metoclopramide [Reglan] 10 mg PO ACHS #20 tablet 05/17/23 Amox/Clav 875/125 [Augmentin] 1 each PO Q12H #20 tablet 09/26/23 cephALEXin [Keflex] 500 mg PO Q6H 5 Days #20 cap 04/19/24 - Allergies Allergies/Adverse Reactions: Allergies Allergy/AdvReac Type Severity Reaction Status Date / Time quetiapine Allergy Unknown Verified 04/19/24 11:00 - Social History Does the pt smoke?: No Smoking Status: Never smoker Does the pt drink ETOH?: Yes Does the pt have substance abuse?: Yes Substance Use and Type: Marijuana - Immunizations Immunizations are current?: Yes Immunizations: TDAP >10years/unknown - POLST Patient has POLST: No PD ED PE NORMAL - Vitals Vital signs reviewed: Yes - General General: Alert and oriented X 3, No acute distress, Well developed/nourished - HEENT HEENT: Atraumatic, PERRL - Derm Derm: Other (right toe erythema, not warm to the touch, no fluid collection or induration, no rash, well healed wound to right lateral toe,no purulent drainage) - Psych Psych: Normal mood Results - Vitals Vitals: Vital Signs - 24 hr 04/19/24 10:52 Temperature 36.4 C L Heart Rate 56 L Respiratory 22 Rate Blood Pressure 118/68 O2 Saturation 95 Oxygen O2 Source Room air - Rads (name of study) right toe x-rays Relevant Findings:: Final report received, EMP independent interpretation of test, Other (No acute fractures or bony abnormalities) PD Medical Decision Making - ED course ED course: 73-year-old male presents emergency department for right pinky toe pain. Differentials include but are not limited to cellulitis, abscess, gout, fracture, contusion, sprain. X-rays are complete for further evaluation he does not appear to have any acute displaced fractures or other acute bony abnormalities or findings. The toe does have erythema with mild inflammation there is no fluid collection concerning for possible abscess no induration. Differentials limited down to gout versus cellulitis. Patient was started on Keflex because of his generalized malaise he says he was feeling feverish at home and we have not been able to catch any fevers here but given his unwell feeling and him being prediabetic we went ahead and treated with Keflex for cellulitis of the right toe. He was also offered colchicine just in case it is gout but he wanted to hold off on the colchicine for now and just take the Keflex. Prescription of Keflex was sent to his preferred pharmacy [facility] for nausea he says that he already has a prescription for Zofran at home. Patient was told if after 2 days he is not having any improvement of symptoms or things getting worse come back to the emergency department for further evaluation. All questions answered patient safe for discharge. Departure - Departure Disposition: 01 Home, Self Care Clinical Impression: Cellulitis of toe of right foot Instructions: Cellulitis Dc Prescriptions: cephALEXin [Keflex] 500 mg PO Q6H 5 Days #20 cap Comments: Thank you for trusting us with your care. For now I think we should treat your right toe pain as if it is something called cellulitis which is a skin infection. We have started you on an antibiotic called Keflex here in the emergency department you will take this medication 4 times a day for the next 5 days. Your next dose will be this evening and starting tomorrow as when you will start taking it 4 times a day. Please come back in 2 days if you have no alleviation of symptoms or if you are getting any worse or more sick. Wishing you a speedy recovery. Forms: PCP List
--- NOTE | 2024-04-19 11:49 | XRAY Report ---
PROCEDURE: Toe(s) 2+V RT INDICATIONS: rt pinky toe injury, significant pain TECHNIQUE: 3 views of the fifth toe(s) acquired. COMPARISON: None. FINDINGS: Bones: No fractures or dislocations. No suspicious bony lesions. Fusion of the distal interphalange al joint of the fifth toe can be seen. Soft tissues: No suspicious soft tissue densities. IMPRESSION: No displaced fracture is seen on these plain films. Reviewed by: Darshan Vigil MD on 04/19/2024 10:48 AM TYLER Approved by: Darshan Vigil MD on 04/19/2024 10:48 AM TYLER Station ID: [id number]
[2024-04-19] MEDS: KETOROLAC 15 MG/ML VIAL IM STA (12:04)
[2024-04-19] MEDS: cephALEXin 250 MG CAPSULE PO STA (12:27)
[2024-04-19] MEDS: ONDANSETRON ODT 4 MG TABLET TL STA (12:28)
== END 2024-04-19 12:32 | disposition home or self-care (01) ==
LOC: ED 10:29
DX: L03.031 Cellulitis of right toe (principal); R73.03 Prediabetes
CPT/HCPCS: 73660; 96372; 99283; 99284; A9270; Q0162

== ENCOUNTER 2024-05-13 07:58 | Outpatient (CLI) | payer MEDICARE ==
[2024-05-13 08:32] LABS: BASOPHILS # (AUTO) 0.1 10^3/uL (0.0-0.1); BASOPHILS % (AUTO) 0.4 %; EOSINOPHILS # (AUTO) 0.4 10^3/uL (0.0-0.7); EOSINOPHILS % (AUTO) 2.9 %; HCT - HEMATOCRIT 41.5 % (42.0-52.0); HGB - HEMOGLOBIN 13.7 g/dL (14.0-18.0); LYMPHOCYTES # (AUTO) 2.4 10^3/uL (1.5-3.5); LYMPHOCYTES % (AUTO) 17.5 %; MEAN CORPUSCULAR HEMOGLOBIN 30.3 pg (27.0-31.0); MEAN CORPUSCULAR VOLUME 91.8 fL (80.0-94.0); MEAN PLATELET VOLUME 8.5 fL (7.4-11.4); MONOCYTES # (AUTO) 0.9 10^3/uL (0.0-1.0); MONOCYTES % (AUTO) 6.4 %; NEUTROPHILS % (AUTO) 72.4 %; PLT - PLATELET COUNT 325 10^3/uL (130-450); RED BLOOD COUNT 4.52 10^6/uL (4.70-6.10); RED CELL DISTRIBUTION WIDTH 12.8 % (12.0-15.0); WHITE BLOOD COUNT 13.8 x10^3/uL (4.8-10.8)
[2024-05-13 08:51] LABS: ALBUMIN 3.7 g/dL (3.2-5.5); ALBUMIN/GLOBULIN RATIO 1.5 (1.0-2.2); ALKALINE PHOSPHATASE 86 IU/L (42-121); ALT ALANINE AMINOTRANSFERASE 20 IU/L (10-60); AST ASPARTATE AMINOTRANSFERASE 8 IU/L (10-42); BILIRUBIN,TOTAL 0.6 mg/dL (0.2-1.0); BUN - BLOOD UREA NITROGEN 9 mg/dL (6-20); CARBON DIOXIDE - CO2 29 mmol/L (21-32); CHLORIDE 100 mmol/L (101-111); CHOLESTEROL 111 mg/dL; CREATININE 0.8 mg/dL (0.6-1.3); GAMMA GLUTAMYL TRANSPEPTIDASE 71 IU/L (9-64); GFR - MDRD 95 (>89); GLUCOSE 127 mg/dL (74-104); HDL CHOLESTEROL 28 mg/dL; LDL CHOLESTEROL,CALCULATED 65 mg/dL; LDL/HDL RATIO 2.3 (<3.6); POTASSIUM 4.1 mmol/L (3.5-4.5); SODIUM 135 mmol/L (135-145); TOTAL PROTEIN 6.2 g/dL (6.4-8.9); TRIGLYCERIDES 92 mg/dL; VLDL CHOLESTEROL 18 mg/dL
[2024-05-13 13:24] LABS: ESTIMATED AVERAGE GLUCOSE 143 mg/dL (70-100); HEMOGLOBIN A1c% 6.6 % (4.27-6.07)
== END 2024-05-13 07:59 | disposition home or self-care (01) ==
LOC: LAB 07:58
PROVIDERS: ATTEND Specialist
DX: E78.5 Hyperlipidemia, unspecified (principal); R73.9 Hyperglycemia, unspecified
CPT/HCPCS: 36415; 80053; 80061; 82977; 83036; 83721; 85025